=== PATIENT | female | born 1935 | race Caucasian/White ===

== ENCOUNTER 2024-02-04 13:38 | Inpatient (IN) ==
--- NOTE | 2024-02-04 14:43 | Emergency Department Note ---
Impression & Plan Weakness, Acute hyponatremia, Elevated troponin, Elevated liver enzymes ED Provider Note NAME: RAYMOND BALLARD AGE: 88 SEX: F : 1935 ARRIVES VIA: Ambulance INFORMANT: [Patient][family] ED PROVIDER(S): [Miguel Colorado MD] CHIEF COMPLAINT: Weakness HISTORY OF PRESENT ILLNESS: The patient is an 88-year-old female who recently had COVID-19. She has been out of quarantine for 2 days. Yesterday was a decent day. Today, she felt weak and not herself and had a hard time getting out of a chair. The weakness is diffuse. She feels thirsty, she thinks she may be dehydrated. There has been no shortness of breath today, no chest pain or abdominal pain. No vomiting or diarrhea. No urinary complaints. PMHx/PSHx/Social Hx: See Below PHYSICAL EXAM: GENERAL: Patient is in no acute distress. HEENT: No acute trauma, normocephalic atraumatic, mucous membranes dry, no nasal congestion. NECK: No stridor, no adenopathy, no meningismus, trachea is midline. LUNGS: Clear to auscultation bilaterally, no wheeze, no rhonchi, breath sounds equal. HEART: Without murmurs gallops or rubs, regular rate and rhythm. ABDOMEN: Soft, nontender, no peritonitis. EXTREMITIES: No cyanosis, full range of motion of all the joints without pain or difficulty. NEUROLOGIC: Oriented x 3, no acute motor or sensory deficits, no focal weakness. No speech slur or facial droop. SKIN: No jaundice, no diaphoresis. DIFFERENTIAL DIAGNOSIS: Dehydration, UTI, electrolyte imbalance, anemia, NH, among others. EMERGENCY DEPARTMENT PROCEDURES: MEDICAL DECISION MAKING: There is no leukocytosis or concerning anemia. There is a normal platelet count. Sodium was low at 128. No renal failure. There were some elevated liver enzymes, the bilirubin was normal. TSH was elevated however, the T4 was normal. ECG shows a normal sinus rhythm with LVH, no obvious ST elevation. Cardiac enzyme testing x 2 was performed, the value was elevated but stable. The troponin elevation does not appear consistent with acute cardiac injury. Urinalysis does not show findings of infection. On exam, the patient appeared dehydrated. She was not febrile or toxic. No focal neurologic findings to suggest CVA. Patient received 1.5 L of IV saline for hydration. The patient is still too weak to stand and support herself. She feels unsafe with discharge. The patient will be hospitalized. She requires further hydration, correction of her hyponatremia, observation. Further cardiac workup may be warranted. I spoke with the patient and case management. The on-call hospitalist was consulted. Prior/Outside records/notes reviewed: Today's EMS notes describing her presentation and transport to this hospital. ECG per my interpretation: Indication was weakness. The ECG shows a normal sinus rhythm with a rate of 68. There is LVH present. There is no acute ST elevation, no PVCs. The QTc is 433. Continuous Cardiac Monitoring per my interpretation: An order was placed for continuous cardiac monitoring. The monitor shows a rate of 99 with normal sinus rhythm. Imaging/x-ray results per my interpretation: Chest x-ray shows a potential abnormality to the left lung versus artifact. No obvious pneumonia. There was no pneumothorax or CHF. Chronic Medical/Social conditions affecting care: Advanced age. Recent COVID- 19 diagnosis. Care/Management discussed with: Case management, the on-call hospitalist. Level of care consideration(s): After review of the information above and other included data: --I believe the patient requires escalation of care to admission DISPOSITION: Admission Past Med/Surg History Problem List (Updated 02/04/24 @ 19:53 by Miguel Colorado MD) Elevated liver enzymes (Acute) Elevated troponin (Acute) Acute hyponatremia (Acute) Weakness (Acute) Elevated troponin Transaminitis Dehydration Acute hyponatremia Generalized weakness Claw hand of left upper extremity Left arm weakness Medical History History of left breast cancer chemo and xrt in 1999 Macular degeneration of right eye T2DM (type 2 diabetes mellitus) Rotator cuff arthropathy Surgical History (Updated 02/04/24 @ 18:05 by Karma Del Toro PA-C) History of knee replacement procedure of right knee History of knee replacement procedure of left knee Hx of hysterectomy Social History Smoking Status: Former smoker Tobacco Type: Cigarettes Smoking End Date: many years ago, smoked when young; Hx Alcohol Use: No Hx Substance Use: No Preferred Language: French marital status: / Current Living Situation Comment: [facility] Feels Safe at Home: Yes Allergies Allergies Allergy/AdvReac Type Severity Reaction Status Date / Time Sulfa (Sulfonamide Allergy Mild Unknown Verified 02/04/24 18:05 Antibiotics) Home Meds Home Medications Medication Instructions Recorded Confirmed biotin 2,500 mcg capsule 5,000 mcg PO DAILY 08/04/23 02/04/24 brimonidine 0.2 % eye drops 1 drp ophthalmic (eye) BID 08/04/23 02/04/24 docusate sodium 100 mg capsule 100 mg PO DAILY 08/04/23 02/04/24 ibuprofen 200 mg tablet 200 mg PO DAILY PRN Pain 08/04/23 02/04/24 latanoprost 0.005 % eye drops 1 drp ophthalmic (eye) DAILY 08/04/23 02/04/24 levothyroxine 75 mcg tablet 75 mcg PO DAILY 08/04/23 02/04/24 lidocaine 4 % topical gel 1 applic topical TID PRN Pain 08/04/23 02/04/24 multivitamin 1 tab PO DAILY 08/04/23 02/04/24 omeprazole 20 mg capsule,delayed 20 mg PO DAILY 08/04/23 02/04/24 release sitagliptin phosphate 100 mg 100 mg PO DAILY 08/04/23 02/04/24 tablet (Januvia) solifenacin 10 mg tablet (Vesicare) 10 mg PO DAILY 08/04/23 02/04/24 trazodone 50 mg tablet 50 mg PO DAILY 08/04/23 02/04/24 vit C 250 mg-vit E 90 mg-zinc 40 1 tab PO BID 02/04/24 02/04/24 mg-copper 1 [id number] capsule (PreserVision AREDS-2) zinc oxide-white petrolatum 15 1 applic topical DIRECTED 02/04/24 02/04/24 %-49 % topical ointment (Remedy Specialized Protect) Previous Rx's Medication Instructions Recorded diazepam 2 mg tablet 2 mg PO ONCE PRN anxiety #2 tabs 09/03/23 lidocaine 5 % topical patch 1 patch topical DAILY #15 ea 01/18/24 (Lidoderm) oxycodone 5 mg tablet 2.5 - 5 mg (0.5 - 1 x 5 mg) PO Q6H 01/18/24 PRN pain #10 tabs Results & Data (ED) Vital Signs Vital Signs - 24 hr 02/04/24 13:47 02/04/24 13:47 02/04/24 13:50 Temperature 36.5 C Temperature Source Oral Pulse Rate 77 74 Pulse Rate [Apical] Pulse Rate from SpO2 Sensor Respiratory Rate 16 Respiratory Effort / Characteristics Respiratory Depth Respiratory Pattern Blood Pressure 115/75 Blood Pressure [Right Arm] Blood Pressure Mean 88 Blood Pressure Mean [Right Arm] Pulse Oximetry 99 Oxygen Delivery Method Room Air Room Air Sepsis Recent Fever Within 48 Hours No Sepsis New/Unexplained Change in Mental Status No Sepsis Action Taken by Nursing No Action Required 02/04/24 14:00 02/04/24 14:15 02/04/24 14:21 Temperature Temperature Source Pulse Rate 71 72 66 Pulse Rate [Apical] Pulse Rate from SpO2 Sensor 72 68 Respiratory Rate 17 21 21 Respiratory Effort / Characteristics Respiratory Depth Respiratory Pattern Blood Pressure Blood Pressure [Right Arm] Blood Pressure Mean Blood Pressure Mean [Right Arm] Pulse Oximetry 98 99 Oxygen Delivery Method Sepsis Recent Fever Within 48 Hours Sepsis New/Unexplained Change in Mental Status Sepsis Action Taken by Nursing 02/04/24 14:30 02/04/24 14:45 02/04/24 14:51 Temperature Temperature Source Pulse Rate 75 66 67 Pulse Rate [Apical] Pulse Rate from SpO2 Sensor 68 67 67 Respiratory Rate 13 27 H 20 Respiratory Effort / Characteristics Respiratory Depth Respiratory Pattern Blood Pressure Blood Pressure [Right Arm] Blood Pressure Mean Blood Pressure Mean [Right Arm] Pulse Oximetry 98 99 98 Oxygen Delivery Method Sepsis Recent Fever Within 48 Hours Sepsis New/Unexplained Change in Mental Status Sepsis Action Taken by Nursing 02/04/24 15:00 02/04/24 15:06 02/04/24 15:15 Temperature Temperature Source Pulse Rate 71 71 Pulse Rate [Apical] 69 Pulse Rate from SpO2 Sensor 71 71 Respiratory Rate 18 13 15 Respiratory Effort / Characteristics Non-Labored Spontaneous Respiratory Depth Normal Respiratory Pattern Regular Blood Pressure Blood Pressure [Right Arm] 133/78 Blood Pressure Mean Blood Pressure Mean [Right Arm] 96 Pulse Oximetry 98 98 99 Oxygen Delivery Method Room Air Sepsis Recent Fever Within 48 Hours Sepsis New/Unexplained Change in Mental Status Sepsis Action Taken by Nursing 02/04/24 15:24 02/04/24 17:00 02/04/24 18:00 Temperature 37.1 C Temperature Source Oral Pulse Rate 76 Pulse Rate [Apical] 66 68 Pulse Rate from SpO2 Sensor 76 Respiratory Rate 18 18 18 Respiratory Effort / Characteristics Non-Labored Spontaneous Non-Labored Spontaneous Respiratory Depth Normal Normal Respiratory Pattern Regular Regular Blood Pressure Blood Pressure [Right Arm] 139/71 115/80 Blood Pressure Mean Blood Pressure Mean [Right Arm] 93 91 Pulse Oximetry 99 98 99 Oxygen Delivery Method Room Air Room Air Sepsis Recent Fever Within 48 Hours Sepsis New/Unexplained Change in Mental Status Sepsis Action Taken by Nursing 02/04/24 18:24 Temperature Temperature Source Pulse Rate 67 Pulse Rate [Apical] Pulse Rate from SpO2 Sensor Respiratory Rate Respiratory Effort / Characteristics Respiratory Depth Respiratory Pattern Blood Pressure Blood Pressure [Right Arm] Blood Pressure Mean Blood Pressure Mean [Right Arm] Pulse Oximetry Oxygen Delivery Method Sepsis Recent Fever Within 48 Hours Sepsis New/Unexplained Change in Mental Status Sepsis Action Taken by Long Term Medications Current Medication List: was personally reviewed by me Laboratory Data Attestation: I reviewed the patient's lab results. 02/04/24 13:50 02/04/24 13:50 Lab Results 02/04/24 02/04/24 02/04/24 Range/Units 13:50 15:52 16:24 WBC 7.74 (4.8-10.8) K/ul RBC 4.19 L (4.20-5.40) M/uL Hgb 14.2 (12.0-16.0) g/dl Hct 40.8 (37.0-47.0) % MCV 97.4 (80.0-100.0) fL MCH 33.9 (25.0-34.0) pg MCHC 34.8 (32.0-36.0) g/dL RDW Std Deviation 47.8 H (36.4-46.3) fL RDW Coeff of Oswaldo 13.4 (11.5-14.5) % Plt Count 195 (130-400) K/uL MPV 10.6 (9.4-12.4) fL Immature Gran % (Auto) 1.2 % Neut % (Auto) 67.4 % Lymph % (Auto) 26.2 % Burleigh % (Auto) 4.7 % Eos % (Auto) 0.4 % Baso % (Auto) 0.1 % Neut # (Auto) 5.22 (1.40-6.50) K/uL Lymph # (Auto) 2.03 (1.20-3.40) K/uL Burleigh # (Auto) 0.36 (0.11-0.59) K/uL Eos # (Auto) 0.03 (0.00-0.50) K/uL Baso # (Auto) 0.01 (0.00-0.20) K/uL Immature Gran # (Auto) 0.09 (0.01-0.20) K/uL Sodium 128 L (136-145) mmol/L Potassium 4.2 (3.5-5.1) mmol/L Chloride 95 L (98-107) mmol/L Carbon Dioxide 23 (21-32) mmol/L Anion Gap 10 (3-11) BUN 22 (6-23) mg/dl Creatinine 0.68 (0.6-1.2) mg/dl Est Cr Clr Drug Dosing 47.3 ml/min Est GFR ( Amer) 90.5 ml/min Est GFR (Non-Af Amer) 78.1 ml/min BUN/Creatinine Ratio 32.4 H (10-20) Glucose 142 H (70-99(Fasting)) mg/dl Osmolality 279 L (280-300) mOsm/kg Calcium 9.5 (8.6-10.3) mg/dl Magnesium 2.4 (1.7-2.4) mg/dl Total Bilirubin 0.9 (0.2-1.0) mg/dl AST 112 H (13-39) U/L ALT 187 H (7-52) U/L Alkaline Phosphatase 91 (34-104) U/L Troponin I High Sens 28.2 H 31.4 H (0-14) pg/ml Total Protein 6.6 (6.0-8.3) gm/dl Albumin 4.0 (3.4-5.0) gm/dl Globulin 2.6 (2.5-4.0) gm/dl Albumin/Globulin Ratio 1.5 (0.9-2) TSH 9.554 H (0.300-4.500) uIu/ml Free T4 0.94 (0.61-1.60) ng/dl Urine Color Yellow Urine Appearance Clear (Clear) Urine pH 7.5 (4.5-7.5) Ur Specific Holcomb 1.014 (1.000-1.030) Urine Protein Negative (Negative) Urine Glucose (UA) Negative (Negative) Urine Ketones Negative (Negative) Urine Blood Negative (Negative) Urine Nitrite Negative (Negative) Urine Bilirubin Negative (Negative) Urine Urobilinogen Negative (Negative) Ur Leukocyte Esterase 2+ H (Negative) Urine WBC (Auto) 0-5 (0-5) /hpf Urine RBC (Auto) 0-2 (0-2) /hpf U Hyaline Cast (Auto) 0-2 (0-2) /lpf U Epithel Cells (Auto) 0-2 (0-2) /hpf Urine Bacteria (Auto) None Seen (None Seen) Adenovirus (PCR) (NotDetected) B. pertussis DNA (PCR) (NotDetected) B.parapertussis DNA PCR (NotDetected) C. pneumoniae DNA (PCR) (NotDetected) Coronavirus OC43 (PCR) (NotDetected) Coronavirus HKU1 (PCR) (NotDetected) Coronavirus 229E (PCR) (NotDetected) SARS-CoV-2 (PCR) (NotDetected) Coronavirus NL63 (PCR) (NotDetected) Human Metapneumovir PCR (NotDetected) Influenza Type A (PCR) (NotDetected) Influenza Type B (PCR) (NotDetected) M. pneumoniae (PCR) (NotDetected) Parainfluenza 1 (PCR) (NotDetected) Parainfluenza 2 (PCR) (NotDetected) Parainfluenza 3 (PCR) (NotDetected) Parainfluenza 4 (PCR) (NotDetected) RSV (PCR) (NotDetected) Entero/Rhino (PCR) (NotDetected) 02/04/24 Range/Units 18:30 WBC (4.8-10.8) K/ul RBC (4.20-5.40) M/uL Hgb (12.0-16.0) g/dl Hct (37.0-47.0) % MCV (80.0-100.0) fL MCH (25.0-34.0) pg MCHC (32.0-36.0) g/dL RDW Std Deviation (36.4-46.3) fL RDW Coeff of Oswaldo (11.5-14.5) % Plt Count (130-400) K/uL MPV (9.4-12.4) fL Immature Gran % (Auto) % Neut % (Auto) % Lymph % (Auto) % Burleigh % (Auto) % Eos % (Auto) % Baso % (Auto) % Neut # (Auto) (1.40-6.50) K/uL Lymph # (Auto) (1.20-3.40) K/uL Burleigh # (Auto) (0.11-0.59) K/uL Eos # (Auto) (0.00-0.50) K/uL Baso # (Auto) (0.00-0.20) K/uL Immature Gran # (Auto) (0.01-0.20) K/uL Sodium (136-145) mmol/L Potassium (3.5-5.1) mmol/L Chloride (98-107) mmol/L Carbon Dioxide (21-32) mmol/L Anion Gap (3-11) BUN (6-23) mg/dl Creatinine (0.6-1.2) mg/dl Est Cr Clr Drug Dosing ml/min Est GFR ( Amer) ml/min Est GFR (Non-Af Amer) ml/min BUN/Creatinine Ratio (10-20) Glucose (70-99(Fasting)) mg/dl Osmolality (280-300) mOsm/kg Calcium (8.6-10.3) mg/dl Magnesium (1.7-2.4) mg/dl Total Bilirubin (0.2-1.0) mg/dl AST (13-39) U/L ALT (7-52) U/L Alkaline Phosphatase (34-104) U/L Troponin I High Sens (0-14) pg/ml Total Protein (6.0-8.3) gm/dl Albumin (3.4-5.0) gm/dl Globulin (2.5-4.0) gm/dl Albumin/Globulin Ratio (0.9-2) TSH (0.300-4.500) uIu/ml Free T4 (0.61-1.60) ng/dl Urine Color Urine Appearance (Clear) Urine pH (4.5-7.5) Ur Specific Holcomb (1.000-1.030) Urine Protein (Negative) Urine Glucose (UA) (Negative) Urine Ketones (Negative) Urine Blood (Negative) Urine Nitrite (Negative) Urine Bilirubin (Negative) Urine Urobilinogen (Negative) Ur Leukocyte Esterase (Negative) Urine WBC (Auto) (0-5) /hpf Urine RBC (Auto) (0-2) /hpf U Hyaline Cast (Auto) (0-2) /lpf U Epithel Cells (Auto) (0-2) /hpf Urine Bacteria (Auto) (None Seen) Adenovirus (PCR) Not Detected (NotDetected) B. pertussis DNA (PCR) Not Detected (NotDetected) B.parapertussis DNA PCR Not Detected (NotDetected) C. pneumoniae DNA (PCR) Not Detected (NotDetected) Coronavirus OC43 (PCR) Not Detected (NotDetected) Coronavirus HKU1 (PCR) Not Detected (NotDetected) Coronavirus 229E (PCR) Not Detected (NotDetected) SARS-CoV-2 (PCR) Not Detected (NotDetected) Coronavirus NL63 (PCR) Not Detected (NotDetected) Human Metapneumovir PCR Not Detected (NotDetected) Influenza Type A (PCR) Not Detected (NotDetected) Influenza Type B (PCR) Not Detected (NotDetected) M. pneumoniae (PCR) Not Detected (NotDetected) Parainfluenza 1 (PCR) Not Detected (NotDetected) Parainfluenza 2 (PCR) Not Detected (NotDetected) Parainfluenza 3 (PCR) Not Detected (NotDetected) Parainfluenza 4 (PCR) Not Detected (NotDetected) RSV (PCR) Not Detected (NotDetected) Entero/Rhino (PCR) Not Detected (NotDetected) Administered Medications Discontinued Medications Sodium Chloride (Nss) 1,000 mls @ 999 mls/hr IV .Q1H1M DELFINO Stop: 02/04/24 15:45 Last Infusion: 02/04/24 16:16 Dose: Infused Documented By: Admin: 02/04/24 15:06 Dose: 999 mls/hr Documented By: SHILPI Sodium Chloride (Nss) 500 mls @ 999 mls/hr IV .Q31M ONE Stop: 02/04/24 18:06 Last Admin: 02/04/24 18:32 Dose: 999 mls/hr Documented By: SHILPI Imaging Data Radiologist's Impression: Chest X-Ray 02/04/24 14:36 XR chest 1V portable CLINICAL HISTORY: weakness COMPARISON STUDY: MRI of the chest September 06, 2023. FINDINGS: There is no pneumothorax or pleural effusion. Left axillary surgical clips are incidentally noted. There is no consolidation or evidence for pulmonary edema. Cardiomediastinal silhouette is unremarkable. Apparent left midlung density is likely due to summation artifact. IMPRESSION: Left midlung density, likely due to summation artifact. A focus of pneumonia could appear similar. This could be assessed with short-term follow-up PA and lateral chest radiographs. ACT 112: Negative or not required by law. Electronically signed by: Iggy Acevedo M.D. 02/04/2024 2:58 PM Discharge Plan Visit Data Chief Complaint: Weakness Stated Complaint: WEAKNESS ED Provider: Miguel Colorado Discharge Problem: Weakness, Acute hyponatremia, Elevated troponin, Elevated liver enzymes Patient Disposition: Admitted As Inpatient Condition: Fair Forms Stand Alone Forms: [facility] Prescriptions Prescriptions: No Action diazepam 2 mg tablet 2 mg PO ONCE PRN (Reason: anxiety) Qty: 2 0RF Rx Instructions: take one tab 1 hour prior to MRI; repeat x1 if needed biotin 2,500 mcg capsule 5,000 mcg PO DAILY multivitamin Tablet 1 tab PO DAILY solifenacin [Vesicare] 10 mg tablet 10 mg PO DAILY brimonidine 0.2 % drops 1 drp ophthalmic (eye) BID ibuprofen 200 mg tablet 200 mg PO DAILY PRN (Reason: Pain) Januvia 100 mg tablet 100 mg PO DAILY latanoprost 0.005 % drops 1 drp ophthalmic (eye) DAILY levothyroxine 75 mcg tablet 75 mcg PO DAILY lidocaine 4 % gel 1 applic topical TID PRN (Reason: Pain) omeprazole 20 mg capsule,delayed release(DR/EC) 20 mg PO DAILY docusate sodium 100 mg capsule 100 mg PO DAILY trazodone 50 mg tablet 50 mg PO DAILY lidocaine [Lidoderm] 5 % adhesive patch,medicated 1 patch topical DAILY Qty: 15 1RF Rx Instructions: leave on most painful area for up to 12 hrs oxycodone 5 mg tablet 2.5 - 5 mg PO Q6H PRN (Reason: pain) Qty: 10 0RF Remedy Specialized Protect 15-49 % ointment 1 applic TOPICAL DIRECTED PreserVision AREDS-2 250-90-40-1 mg Capsule 1 tab PO BID Referrals Referrals: Moises Gannon CRNP [Primary Care Provider] -
--- NOTE | 2024-02-04 15:00 | XRay Report ---
XR chest 1V portable CLINICAL HISTORY: weakness COMPARISON STUDY: MRI of the chest September 06, 2023. FINDINGS: There is no pneumothorax or pleural effusion. Left axillary surgical clips are incidentally noted. There is no consolidation or evidence for pulmonary edema. Cardiomediastinal silhouette is un remarkable. Apparent left midlung density is likely due to summation artifact. IMPRESSION: Left midlung density, likely due to summation artifact. A focus of pneumonia could appear similar. This could be assessed with short-term follow-up PA and lateral chest radiographs. ACT 112: Negative or not required by law. Electronically signed by: Iggy Acevedo M.D. 02/04/2024 2:58 PM
[2024-02-04 15:03] LABS: Basophils # (auto) 0.01 K/uL (0.00-0.20); Basophils % (auto) 0.1 %; Eosinophils # (auto) 0.03 K/uL (0.00-0.50); Eosinophils % (auto) 0.4 %; Hematocrit (blood only) 40.8 % (37.0-47.0); Hemoglobin 14.2 g/dl (12.0-16.0); Immature Granulocytes # (auto) 0.09 K/uL (0.01-0.20); Immature Granulocytes % (auto) 1.2 %; Lymphocytes # (auto) 2.03 K/uL (1.20-3.40); Lymphocytes % (auto) 26.2 %; Mean Corpuscular Hemoglobin 33.9 pg (25.0-34.0); Mean Corpuscular Hgb Conc 34.8 g/dL (32.0-36.0); Mean Corpuscular Volume 97.4 fL (80.0-100.0); Mean Platelet Volume 10.6 fL (9.4-12.4); Monocytes # (auto) 0.36 K/uL (0.11-0.59); Monocytes % (auto) 4.7 %; Neutrophils # (auto) 5.22 K/uL (1.40-6.50); Neutrophils % (auto) 67.4 %; Platelet Count 195 K/uL (130-400); RDW Coefficient of Variation 13.4 % (11.5-14.5); RDW Standard Deviation 47.8 fL (36.4-46.3); Red Blood Count 4.19 M/uL (4.20-5.40); White Blood Count 7.74 K/ul (4.8-10.8)
[2024-02-04] MEDS: SODIUM CHLORIDE 0.9% 1,000 ML IV SCH ×2 (15:06→23:44)
[2024-02-04 15:17] LABS: Albumin Globulin Ratio 1.5 (0.9-2); BUN Creatinine Ratio 32.4 (10-20); Bilirubin,Total 0.9 mg/dl (0.2-1.0); Calcium 9.5 mg/dl (8.6-10.3); Creatinine Clr Calc Pharmacy 47.3 ml/min; Est GFR (African American) 90.5 ml/min; Est GFR (Non-African American) 78.1 ml/min; Globulin 2.6 gm/dl (2.5-4.0); Magnesium 2.4 mg/dl (1.7-2.4); Potassium 4.2 mmol/L (3.5-5.1); Total Protein 6.6 gm/dl (6.0-8.3)
[2024-02-04 15:23] LABS: Troponin I High Sensitivity 28.2 pg/ml (0-14)
[2024-02-04 15:32] LABS: Thyroid Stimulating Hormone 9.554 uIu/ml (0.300-4.500)
[2024-02-04 16:09] LABS: T4 Free Thyroxine 0.94 ng/dl (0.61-1.60)
[2024-02-04 16:31] LABS: Appearance Urine Clear (Clear); Bacteria Urine Automated None Seen (None Seen); Bilirubin Urine Negative (Negative); Blood Urine Negative (Negative); Cast Urine Automated 0-2 /lpf (0-2); Color Urine Yellow; Epithelial Cell Urine Auto 0-2 /hpf (0-2); Glucose Urine UA Negative (Negative); Ketones Urine Negative (Negative); Leukocyte Esterase Urine 2+ (Negative); Nitrite Urine Negative (Negative); Protein Urine Negative (Negative); RBC Urine Automated 0-2 /hpf (0-2); Specific Gravity Urine 1.014 (1.000-1.030); Urobilinogen Urine Negative (Negative); WBC Urine Automated 0-5 /hpf (0-5); pH Urine 7.5 (4.5-7.5)
[2024-02-04] MEDS: SODIUM CHLORIDE 0.9% 500 ML IV ONE (18:32)
--- NOTE | 2024-02-04 18:34 | History & Physical Report ---
Date of Service February 04, 2024 Assessment & Plan (1) Generalized weakness: (2) Acute hyponatremia: (3) Dehydration: (4) Transaminitis: (5) Elevated troponin: (6) T2DM (type 2 diabetes mellitus): (7) History of left breast cancer: Plan This is a 88 yr old F who has a significant PMH of macular degeneration, T2DM, hypothyroidism who presents to ED 2/2 weakness. Generalized Weakness Recent Covid Infection Dehydration Acute Hyponatremia admit to med tele gentle IVF x 1 L, obtain urine na, urine osm, serum osm received 1 L of IVF in ED, will repeat BMP now, suspect related to poor intake suspect weakness multifactorial in setting of covid, dehydration and low sodium if worsening/no improvement consider nephro consult Obtain CT chest r/o PNA given recent covid infection PT/OT consults placed Elevated troponin ecg w/o ischemic change, no chest pain cycle x 3, obtain echo in a.m. given pt significant stress with recent deaths Transaminitis repeat CMP in a.m., no abd pain, if worsening obtain RUQ US T2DM obtain a1c in a.m. hold januvia will monitor accuchecks for now, diabetic diet, if consistent BSG elevated add sliding scale coverage Hypothyroidism: continue levothyroxine, TSH elevated, T4 normal, recommend repeat TSH/T4 in 2-4 weeks after recovered from recent illness Macular degeneration: continue eye gtts DVT ppx: SQ lovenox DNR/DNI PCP: [facility] NENA Medrano Dispo: pt resides at [facility], was receiving therapy services there, when discussing rehab with patients daughter was very upset as her recently at rehab and she states her mother will not go to a facility for rehab, this is a very sensitive topic given the families recent deaths. Pt was seen and examined in collaboration with Dr. Reyes, please see addendum A total of 76 minutes was spent coordinating, documenting, and providing care for this patient excluding time spent in the performance of separately billed services. This included personally viewing all current laboratories and imaging studies, medication reconciliation, outpatient chart review, and discussion with specialists. History of Present Illness Chief Complaint: Weakness Primary Care Provider: [facility] NENA Connelly This is a 88 yr old F who has a significant PMH of macular degeneration, T2DM, hypothyroidism who presents to ED 2/2 weakness. Daughter is at bedside who helps elicit history. Pt states her passed 5 days ago and daughter at bedside states her passed 3 weeks ago. They have had a lot of stress going on in the family. She was dx with covid approx 7-10 days ago. Her sx were present almost a week before she tested positive. Her sx have mostly resolved except she has a lingering cough and c/o L sided chest,"rattles." She denies f/c/s, chest pain, sob at rest, hemoptysis, n/v/d, abd pain, change in bowel or urinary habits. SHe has been more constipated lately. She has not been eating/drinking well. She lives at [facility] and today she was even to weak to get up off a chair. She feels overall dehydrated. In ED pt remained hemodynamically stable. Lab work notable for hyponatremia, transaminitis and elevated troponin. CXR showed LLL summation density and a CT scan was ordered for follow up. Allergies Allergy/AdvReac Type Severity Reaction Status Date / Time Sulfa (Sulfonamide Allergy Mild Unknown Verified 02/04/24 18:05 Antibiotics) Home Medications Medication Instructions Recorded Confirmed Type biotin 2,500 mcg capsule 5,000 mcg PO DAILY 08/04/23 02/04/24 History brimonidine 0.2 % eye drops 1 drp ophthalmic (eye) BID 08/04/23 02/04/24 History docusate sodium 100 mg capsule 100 mg PO DAILY 08/04/23 02/04/24 History ibuprofen 200 mg tablet 200 mg PO DAILY PRN Pain 08/04/23 02/04/24 History latanoprost 0.005 % eye drops 1 drp ophthalmic (eye) DAILY 08/04/23 02/04/24 History levothyroxine 75 mcg tablet 75 mcg PO DAILY 08/04/23 02/04/24 History lidocaine 4 % topical gel 1 applic topical TID PRN Pain 08/04/23 02/04/24 History multivitamin 1 tab PO DAILY 08/04/23 02/04/24 History omeprazole 20 mg capsule,delayed 20 mg PO DAILY 08/04/23 02/04/24 History release sitagliptin phosphate 100 mg 100 mg PO DAILY 08/04/23 02/04/24 History tablet (Januvia) solifenacin 10 mg tablet (Vesicare) 10 mg PO DAILY 08/04/23 02/04/24 History trazodone 50 mg tablet 50 mg PO DAILY 08/04/23 02/04/24 History diazepam 2 mg tablet 2 mg PO ONCE PRN anxiety #2 tabs 09/03/23 02/04/24 Rx lidocaine 5 % topical patch 1 patch topical DAILY #15 ea 01/18/24 02/04/24 Rx (Lidoderm) oxycodone 5 mg tablet 2.5 - 5 mg (0.5 - 1 x 5 mg) PO Q6H 01/18/24 02/04/24 Rx PRN pain #10 tabs vit C 250 mg-vit E 90 mg-zinc 40 1 tab PO BID 02/04/24 02/04/24 History mg-copper 1 [id number] capsule (PreserVision AREDS-2) zinc oxide-white petrolatum 15 1 applic topical DIRECTED 02/04/24 02/04/24 History %-49 % topical ointment (Remedy Specialized Protect) Past Med/Surg History Problem List (Updated 02/04/24 @ 19:53 by Miguel Colorado MD) Elevated liver enzymes (Acute) Elevated troponin (Acute) Acute hyponatremia (Acute) Weakness (Acute) Elevated troponin Transaminitis Dehydration Acute hyponatremia Generalized weakness Claw hand of left upper extremity Left arm weakness Medical History History of left breast cancer chemo and xrt in 1999 Macular degeneration of right eye T2DM (type 2 diabetes mellitus) Rotator cuff arthropathy Surgical History (Updated 02/04/24 @ 18:05 by Karma Del Toro PA-C) History of knee replacement procedure of right knee History of knee replacement procedure of left knee Hx of hysterectomy Social History Smoking Status: Former smoker Tobacco Type: Cigarettes Smoking End Date: many years ago, smoked when young; Hx Alcohol Use: No Hx Substance Use: No Preferred Language: Samoan marital status: / Current Living Situation Comment: [facility] Feels Safe at Home: Yes Review of Systems Review of Systems: All systems reviewed & are unremarkable except as noted in HPI & below Physical Exam Physical Exam: constitutional: WD/WN, elderly, appears acutely ill, vitals as above, NAD, sitting up in bed, pleasant, conversing easily Head: Normocephalic, Atraumatic Eyes: PERRL, conjunctivae normal, anicteric sclerae ENMT: external ear and nose normal, oropharynx normal dry membranes Neck: trachea midline, no thyromegaly normal visual inspection Respiratory: normal respiratory effort, lungs clear to auscultation, no wheeze, rales, rhonchi. Normal insp/exp effort, no accessory muscle use Cardiovascular: RRR, no murmur, no edema Vessels: no JVD or carotid bruit Chest: normal inspection of chest Abdomen: normal bowel sounds, soft, nontender, no hepatosplenomegaly Musculoskeletal: no cyanosis or clubbing, arom x 4 Skin: no rashes, warm and dry moderate turgor Neurologic: no face palsy, no dysarthria CN's II-XI intact bilaterally and moves all extremities Psychiatric: A+Ox3, euthymic affect : nic colored urine collected in purwic Results & Data Results & Data Vital Signs (Past 12 Hours) Vital Signs Temp Pulse Pulse Resp BP BP Pulse Ox 02/04/24 18:24 67 02/04/24 18:00 68 18 115/80 99 02/04/24 17:00 37.1 C 66 18 139/71 98 02/04/24 15:24 76 18 99 02/04/24 15:15 71 15 99 02/04/24 15:06 71 13 98 02/04/24 15:00 69 18 133/78 98 02/04/24 14:51 67 20 98 02/04/24 14:45 66 27 H 99 02/04/24 14:30 75 13 98 02/04/24 14:21 66 21 99 02/04/24 14:15 72 21 98 02/04/24 14:00 71 17 02/04/24 13:50 74 02/04/24 13:47 02/04/24 13:47 36.5 C 77 16 115/75 99 O2 Del Method 02/04/24 18:24 02/04/24 18:00 Room Air 02/04/24 17:00 Room Air 02/04/24 15:24 02/04/24 15:15 02/04/24 15:06 02/04/24 15:00 Room Air 02/04/24 14:51 02/04/24 14:45 02/04/24 14:30 02/04/24 14:21 02/04/24 14:15 02/04/24 14:00 02/04/24 13:50 02/04/24 13:47 Room Air 02/04/24 13:47 Room Air Laboratory Results I have independently reviewed and interpreted patient's admitting labs including CBC, CMP, mag, TSH, UA and troponin. Diagnostic Findings Chest X-Ray 02/04/24 14:36 XR chest 1V portable CLINICAL HISTORY: weakness COMPARISON STUDY: MRI of the chest September 06, 2023. FINDINGS: There is no pneumothorax or pleural effusion. Left axillary surgical clips are incidentally noted. There is no consolidation or evidence for pulmonary edema. Cardiomediastinal silhouette is unremarkable. Apparent left midlung density is likely due to summation artifact. IMPRESSION: Left midlung density, likely due to summation artifact. A focus of pneumonia could appear similar. This could be assessed with short-term follow-up PA and lateral chest radiographs. ACT 112: Negative or not required by law. Electronically signed by: Iggy Acevedo M.D. 02/04/2024 2:58 PM Medications Administered Medication List Discontinued Medications Sodium Chloride (Nss) 1,000 mls @ 999 mls/hr IV .Q1H1M DELFINO Stop: 02/04/24 15:45 Last Infusion: 02/04/24 16:16 Dose: Infused Documented By: Admin: 02/04/24 15:06 Dose: 999 mls/hr Documented By: SHILPI Sodium Chloride (Nss) 500 mls @ 999 mls/hr IV .Q31M ONE Stop: 02/04/24 18:06 Last Admin: 02/04/24 18:32 Dose: 999 mls/hr Documented By: SHILPI ECG Additional Comments: I have independently reviewed and interpreted patient's admitting EKG which revealed: NSR, 68 bpm, no st or t wave change qtc 433ms Code Status & VTE Plan Code Status DNR/DNI VTE Prophylaxis Plan VTE Prophylaxis will be ordered: Yes Supervising Physician Co-Signing Physician Notes Pt was seen and examined by myself, Mary Reyes MD on the day of service. Care was coordinated with Karma Del Toro PA-C. 88-year-old female presenting with concern for weakness in the setting of noted hyponatremia, recent COVID infection and suspected dehydration. Patient also notes significant history of personal family loss recently. On exam alert oriented x 3 resting comfortably in the bed. Neuro exam noting strength decreased on the left we will hydrate, monitor sodium levels, consider nephrology consult if not improving PT OT consults, likely needs rehab. However, might be a source subject in the setting of recent family loss for patient and family. Otherwise as above. I spent a total [id number] coordinating, documenting, and providing care for this patient excluding time spent in the performance of separately billed services
[2024-02-04 19:43] LABS: Adenovirus PCR Not Detected (NotDetected); Bordetella parapertussis PCR Not Detected (NotDetected); Bordetella pertussis PCR Not Detected (NotDetected); Chlamydia pneumoniae PCR Not Detected (NotDetected); Coronavirus 229E PCR Not Detected (NotDetected); Coronavirus CoV-2 (COVID19)PCR Not Detected (NotDetected); Coronavirus HKU1 PCR Not Detected (NotDetected); Coronavirus NL63 PCR Not Detected (NotDetected); Coronavirus OC43PCR Not Detected (NotDetected); Human Metapneumovirus PCR Not Detected (NotDetected); Influenza A PCR Not Detected (NotDetected); Influenza B PCR Not Detected (NotDetected); Mycoplasma pneumoniae PCR Not Detected (NotDetected); Parainfluenza Virus 1 PCR Not Detected (NotDetected); Parainfluenza Virus 2 PCR Not Detected (NotDetected); Parainfluenza Virus 3 PCR Not Detected (NotDetected); Parainfluenza Virus 4 PCR Not Detected (NotDetected); Respiratory Syncytial VirusPCR Not Detected (NotDetected); Rhinovirus/Enterovirus PCR Not Detected (NotDetected)
[2024-02-04 19:56] LABS: BUN Creatinine Ratio 30.9 (10-20); Calcium 8.3 mg/dl (8.6-10.3); Creatinine Clr Calc Pharmacy 58.5 ml/min; Est GFR (African American) 97.1 ml/min; Est GFR (Non-African American) 83.7 ml/min; Potassium 3.1 mmol/L (3.5-5.1); Troponin I High Sensitivity 30.4 pg/ml (0-14)
[2024-02-04] MEDS: POTASSIUM CHLORIDE CRTAB 20 MEQ TABCR PO STA (20:22)
--- NOTE | 2024-02-04 20:49 | CT Scan Report ---
Exam(s): CT CHEST Without Contrast EXAM: CT Chest Without Intravenous Contrast CLINICAL HISTORY: Reason for exam: r/o PNA. TECHNIQUE: Axial computed tomography images of the chest without intravenous contrast. CTDI is 8.3 mGy and DLP is 278 mGy-cm. Automated exposure control was utilized for the study. A dose lowering technique was utilized adhering to the principles of ALARA. COMPARISON: No relevant prior studies available. FINDINGS: Lungs: No consolidation or interstitial edema. Mild scarring within the left upper lobe. Pleural-based nodule in the right lower lobe measuring 4 mm (series 3 image 34) favored to represent an intraparenchymal lymph node. Pleural space: No pleural effusion or pneumothorax. Heart: Unremarkable. Bones/joints: No acute findings. Soft tissues: Status post left mastectomy. Vasculature: Unremarkable. Lymph nodes: No adenopathy. IMPRESSION: No evidence of pneumonia. Electronically signed by: Emigdio Ascencio MD 02/04/24 20:48 PM
[2024-02-04] MEDS ORDERED: GLUCOSE 10 TAB/TUBE PO PRN (22:28)
[2024-02-04] MEDS ORDERED: GLUCOSE 40% GEL 15 GM TUBE PO PRN (22:28)
[2024-02-04] MEDS ORDERED: NON-FORMULARY MEDICATION (Vit C,E-Zn-Coppr-Lutein-Zeaxan [Preservision Areds-2] 250-90-40- PO SCH (22:28)
[2024-02-04] MEDS ORDERED: FAMOTIDINE 20 MG TAB PO PRN (22:28)
[2024-02-04] MEDS ORDERED: ONDANSETRON INJ 2 MG/ML 2 ML VIAL IV PRN (22:28)
[2024-02-04] MEDS ORDERED: GLUCAGON FOR INJ 1 MG VIAL SQ PRN (22:28)
[2024-02-04] MEDS ORDERED: DEXTROSE 50% 50 ML SYRINGE IV PRN (22:28)
[2024-02-04] MEDS ORDERED: CARBOHYDRATES FOR HYPOGLYCEMIA PO PRN (22:28)
[2024-02-04] MEDS: ENOXAPARIN INJ 40 MG/0.4 ML SYR SQ SCH (23:44)
[2024-02-04] MEDS: traZODone HCL 50 MG TAB PO SCH (23:45)
[2024-02-04] MEDS: LATANOPROST 0.005% OP SOLN 2.5 ML BTL OP SCH (23:45)
[2024-02-04] MEDS: BRIMONIDINE TARTRATE 0.2% 5ML OP SCH (23:45)
[2024-02-05 07:23] LABS: Basophils # (auto) 0.01 K/uL (0.00-0.20); Basophils % (auto) 0.2 %; Eosinophils # (auto) 0.08 K/uL (0.00-0.50); Eosinophils % (auto) 1.4 %; Hematocrit (blood only) 34.5 % (37.0-47.0); Hemoglobin 11.7 g/dl (12.0-16.0); Immature Granulocytes # (auto) 0.06 K/uL (0.01-0.20); Immature Granulocytes % (auto) 1.1 %; Lymphocytes # (auto) 2.02 K/uL (1.20-3.40); Lymphocytes % (auto) 35.6 %; Mean Corpuscular Hemoglobin 33.7 pg (25.0-34.0); Mean Corpuscular Hgb Conc 33.9 g/dL (32.0-36.0); Mean Corpuscular Volume 99.4 fL (80.0-100.0); Mean Platelet Volume 10.3 fL (9.4-12.4); Monocytes % (auto) 5.3 %; Neutrophils # (auto) 3.21 K/uL (1.40-6.50); Neutrophils % (auto) 56.4 %; Platelet Count 150 K/uL (130-400); RDW Coefficient of Variation 13.7 % (11.5-14.5); RDW Standard Deviation 49.1 fL (36.4-46.3); Red Blood Count 3.47 M/uL (4.20-5.40); White Blood Count 5.68 K/ul (4.8-10.8)
[2024-02-05 07:42] LABS: Albumin Globulin Ratio 1.5 (0.9-2); Albumin Level 3.1 gm/dl (3.4-5.0); Bilirubin,Total 0.7 mg/dl (0.2-1.0); Calcium 7.7 mg/dl (8.6-10.3); Creatinine Clr Calc Pharmacy 73.1 ml/min; Est GFR (African American) 104.5 ml/min; Est GFR (Non-African American) 90.1 ml/min; Globulin 2.1 gm/dl (2.5-4.0); Potassium 4.3 mmol/L (3.5-5.1); Total Protein 5.2 gm/dl (6.0-8.3)
[2024-02-05 07:53] LABS: Estimated Average Glucose 166 mg/dl; Hemoglobin A1C 7.4 % (4.5-5.6)
[2024-02-05] MEDS: LEVOTHYROXINE SODIUM 75 MCG TABLET PO SCH (08:24)
[2024-02-05] MEDS: PANTOprazole 40 MG TAB PO SCH (08:25)
[2024-02-05] MEDS: OXYBUTYNIN CHLORIDE XL 5 MG TABCR PO SCH (08:26)
[2024-02-05] MEDS: DOCUSATE SODIUM 100 MG CAP PO SCH (08:27)
--- NOTE | 2024-02-05 11:25 | Electrocardiogram Report ---
Test Reason : Blood Pressure : */* mmHG Vent. Rate : 68 BPM Atrial Rate : 68 BPM P-R Int : 138 ms QRS Dur : 110 ms QT Int : 408 ms P-R-T Axes : -2 -59 36 degrees QTcB Int : 433 ms Normal sinus rhythm Left anterior fascicular block Left ventricular hypertrophy ( R in aVL ) Abnormal ECG No previous ECGs available Confirmed by Eagle Merritt ([id number]) on 02/05/2024 11:25:02 AM Referred By: REFERRED SELF Confirmed By: Eagle Merritt
[2024-02-05] MEDS: LIDOCAINE 5% 1 PATCH TD SCH (12:40)
[2024-02-05] MEDS ORDERED: IBUPROFEN 200 MG TAB PO PRN (13:12)
[2024-02-05] MEDS: ACETAMINOPHEN 325 MG TAB PO PRN (13:19)
[2024-02-05] MEDS: POLYETHYLENE (MIRALAX) 17 GM PACK PO PRN (13:20)
--- NOTE | 2024-02-05 14:39 | Hospitalist Progress Note ---
Date of Service February 05, 2024 Assessment & Plan (1) Generalized weakness: (2) Acute hyponatremia: (3) Dehydration: (4) Transaminitis: (5) Elevated troponin: (6) T2DM (type 2 diabetes mellitus): (7) History of left breast cancer: Plan Patient is an 88 yr old F who has a significant PMH of macular degeneration, T2DM, hypothyroidism who presents to ED 2/2 weakness. Generalized Weakness Likely due to recent Covid Infection Dehydration Hyponatremia--likely due to dehydration Continue IV fluids Sodium levels improved to 136 today PT OT as able Recent COVID-[address] chest showed no signs of pneumonia Check procalcitonin levels Saturating well on room air Elevated troponin Denies any chest pain, dyspnea EKG showed no signs of acute ischemia Troponin elevation likely secondary to recent COVID-19 infection Echo pending Hypokalemia Monitor and replete electrolytes as needed Transaminitis Likely due to recent COVID-19 infection Avoid hepatotoxic agents as able Monitor LFTs DM II HbA1c 7.4 hold [place] Monitor blood glucose levels Will consider to add insulin if blood glucose levels consistently elevated Hypothyroidism: Elevated TSH, normal free T4 Continue levothyroxine Needs repeat thyroid function test as outpatient Macular degeneration: continue eye gtts DVT Px: SQ Lovenox Code Status DNR/DNI Disposition PT OT prior to discharge Admission and Anticipated Discharge Date Admission Date: February 04, 2024 Subjective Patient is seen and examined at bedside Reports having dry cough which she attributes to recent COVID infection Generalized weakness better today Had small bowel movement today Offers no other complaints Denies any chest pain, dyspnea, nausea, vomiting, abdominal pain, dizziness Review of Systems Review of Systems: All systems reviewed & are unremarkable except as noted in Subjective Physical Exam Physical Exam: Physical Exam: Vitals signs as noted above General Appearance:Moderately built and nourished, no apparent distress, Elderly Head: normocephalic, Atraumatic Eyes: normal inspection, EOMI Neck: supple, Trachea midline Respiratory/Chest: Normal breath sounds, CTA, No accessory muscle use Cardiovascular: S1, S2, No murmur Abdomen/GI:Soft, Non tender, Bowel sounds present Extremities/Musculoskeletal:normal inspection, 1+edema Neurologic/Psych:AAOX3, grossly no focal neurological deficits Skin: normal color, warm Results & Data Results & Data Vital Signs (Past 12 Hours) Vital Signs Temp Pulse Pulse Resp BP Pulse Ox O2 Del Method 02/05/24 13:56 78 02/05/24 11:04 36.8 C 66 17 100/66 96 Room Air 02/05/24 07:57 36.9 C 79 16 123/67 97 Room Air 02/05/24 07:34 63 Laboratory Results Short CBC 02/04/24 02/05/24 Range/Units 13:50 06:41 WBC 7.74 5.68 (4.8-10.8) K/ul Hgb 14.2 11.7 L (12.0-16.0) g/dl Hct 40.8 34.5 L (37.0-47.0) % Plt Count 195 150 (130-400) K/uL BMP 02/04/24 02/04/24 02/05/24 13:50 19:10 06:41 Sodium 128 L 131 L 136 Potassium 4.2 3.1 L D 4.3 D Chloride 95 L 101 109 H Carbon Dioxide 23 21 21 BUN 22 17 11 Creatinine 0.68 0.55 L 0.44 L Glucose 142 H 131 H 123 H Calcium 9.5 8.3 L 7.7 L Liver Function 02/04/24 02/05/24 Range/Units 13:50 06:41 Total Bilirubin 0.9 0.7 (0.2-1.0) mg/dl AST 112 H 93 H (13-39) U/L ALT 187 H 163 H (7-52) U/L Alkaline Phosphatase 91 67 (34-104) U/L Albumin 4.0 3.1 L (3.4-5.0) gm/dl Urine 02/04/24 Range/Units 15:52 Urine Color Yellow Urine Appearance Clear (Clear) Urine pH 7.5 (4.5-7.5) Ur Specific [place] 1.014 (1.000-1.030) Urine Protein Negative (Negative) Urine Glucose (UA) Negative (Negative)
[2024-02-06 08:06] LABS: Hematocrit (blood only) 32.5 % (37.0-47.0); Hemoglobin 10.9 g/dl (12.0-16.0); Mean Corpuscular Hemoglobin 33.3 pg (25.0-34.0); Mean Corpuscular Hgb Conc 33.5 g/dL (32.0-36.0); Mean Corpuscular Volume 99.4 fL (80.0-100.0); Mean Platelet Volume 10.8 fL (9.4-12.4); Platelet Count 133 K/uL (130-400); RDW Coefficient of Variation 13.7 % (11.5-14.5); RDW Standard Deviation 50.2 fL (36.4-46.3); Red Blood Count 3.27 M/uL (4.20-5.40); White Blood Count 4.85 K/ul (4.8-10.8)
[2024-02-06 08:24] LABS: BUN Creatinine Ratio 19.6 (10-20); Bilirubin Direct 0.2 mg/dl (0-0.2); Bilirubin,Total 0.7 mg/dl (0.2-1.0); Calcium 8.5 mg/dl (8.6-10.3); Creatinine Clr Calc Pharmacy 78.3 ml/min; Est GFR (African American) 102.9 ml/min; Est GFR (Non-African American) 88.8 ml/min; Magnesium 2.1 mg/dl (1.7-2.4); Potassium 4.1 mmol/L (3.5-5.1)
[2024-02-06] MEDS: oxyCODONE HCL IR 5 MG TAB (IMMEDIATE RELEASE) PO PRN (09:03)
[2024-02-06] MEDS: IBUPROFEN 200 MG TAB PO PRN (15:20)
--- NOTE | 2024-02-06 16:09 | Hospitalist Progress Note ---
Date of Service February 06, 2024 Assessment & Plan (1) Generalized weakness: (2) Acute hyponatremia: (3) Dehydration: (4) Transaminitis: (5) Elevated troponin: (6) T2DM (type 2 diabetes mellitus): (7) History of left breast cancer: Plan Patient is an 88 yr old F who has a significant PMH of macular degeneration, T2DM, hypothyroidism who presents to ED 2/2 weakness. Generalized Weakness Likely due to recent Covid Infection Dehydration Hyponatremia--likely due to dehydration Received IV fluids Sodium levels improved to 135 today Needs rehab placement Continue PT OT Case management to help with discharge planning Recent COVID-[address] chest showed no signs of pneumonia Normal procalcitonin Saturating well on room air Elevated troponin Denies any chest pain, dyspnea EKG showed no signs of acute ischemia Troponin elevation likely secondary to recent COVID-19 infection Echo showed no wall motion abnormality Hypokalemia Monitor and replete electrolytes as needed Transaminitis Likely due to recent COVID-19 infection Avoid hepatotoxic agents as able Monitor LFTs DM II HbA1c 7.4 hold [employer] Monitor blood glucose levels Will consider to add insulin if blood glucose levels consistently elevated Hypothyroidism: Elevated TSH, normal free T4 Continue levothyroxine Needs repeat thyroid function test as outpatient Macular degeneration: continue eye gtts DVT Px: SQ Lovenox Code Status DNR/DNI Disposition Rehab when accepted Admission and Anticipated Discharge Date Admission Date: February 04, 2024 Subjective Patient is seen and examined at bedside Reports generalized weakness Minimal cough Denies any chest pain, dyspnea, nausea, vomiting, abdominal pain, dizziness Had OT evaluation this morning Review of Systems Review of Systems: All systems reviewed & are unremarkable except as noted in Subjective Physical Exam Physical Exam: Physical Exam: Vitals signs as noted above General Appearance:Moderately built and nourished, no apparent distress, Elderly Head: normocephalic, Atraumatic Eyes: normal inspection, EOMI Neck: supple, Trachea midline Respiratory/Chest: Normal breath sounds, CTA, No accessory muscle use Cardiovascular: S1, S2, No murmur Abdomen/GI:Soft, Non tender, Bowel sounds present Extremities/Musculoskeletal:normal inspection, 1+edema Neurologic/Psych:AAOX3, grossly no focal neurological deficits Skin: normal color, warm Results & Data Results & Data Vital Signs (Past 12 Hours) Vital Signs Temp Pulse Pulse Resp BP Pulse Ox O2 Del Method 02/06/24 15:52 36.9 C 93 H 18 101/63 96 Room Air 02/06/24 12:07 36.6 C 74 14 112/75 99 Room Air 02/06/24 08:45 36.8 C 65 18 114/71 96 Room Air 02/06/24 07:17 59 L Laboratory Results Short CBC 02/06/24 Range/Units 07:02 WBC 4.85 (4.8-10.8) K/ul Hgb 10.9 L (12.0-16.0) g/dl Hct 32.5 L (37.0-47.0) % Plt Count 133 (130-400) K/uL BMP 02/06/24 07:02 Sodium 135 L Potassium 4.1 Chloride 108 H Carbon Dioxide 22 BUN 9 Creatinine 0.46 L Glucose 110 H Calcium 8.5 L Liver Function 02/06/24 Range/Units 07:02 Total Bilirubin 0.7 (0.2-1.0) mg/dl Direct Bilirubin 0.2 (0-0.2) mg/dl AST 71 H (13-39) U/L ALT 147 H (7-52) U/L Alkaline Phosphatase 65 (34-104) U/L Albumin 3.0 L (3.4-5.0) gm/dl
[2024-02-06] MEDS: DICLOFENAC SOD 1% GEL 100 GM TUBE EXT PRN (20:20)
[2024-02-06] MEDS: MELATONIN 3 MG TAB PO PRN (20:20)
[2024-02-07 08:26] LABS: Hematocrit (blood only) 32.1 % (37.0-47.0); Hemoglobin 11.4 g/dl (12.0-16.0); Mean Corpuscular Hemoglobin 34.4 pg (25.0-34.0); Mean Corpuscular Hgb Conc 35.5 g/dL (32.0-36.0); Mean Platelet Volume 10.3 fL (9.4-12.4); Platelet Count 121 K/uL (130-400); RDW Coefficient of Variation 13.7 % (11.5-14.5); RDW Standard Deviation 49.3 fL (36.4-46.3); Red Blood Count 3.31 M/uL (4.20-5.40); White Blood Count 4.23 K/ul (4.8-10.8)
[2024-02-07 08:53] LABS: BUN Creatinine Ratio 22.6 (10-20); Calcium 8.9 mg/dl (8.6-10.3); Creatinine Clr Calc Pharmacy 67.7 ml/min; Est GFR (African American) 98.3 ml/min; Est GFR (Non-African American) 84.8 ml/min; Potassium 3.6 mmol/L (3.5-5.1)
[2024-02-07] MEDS: SODIUM CHLORIDE 0.9% 1,000 ML IV ONE (12:29)
[2024-02-07] MEDS: POLYETHYLENE (MIRALAX) 17 GM PACK PO ONE (13:26)
[2024-02-07] MEDS: bisacodyL 10 MG SUPP PR PRN (17:01)
--- NOTE | 2024-02-07 18:51 | Hospitalist Progress Note ---
Date of Service February 07, 2024 Assessment & Plan (1) Generalized weakness: (2) Acute hyponatremia: (3) Dehydration: (4) Transaminitis: (5) Elevated troponin: (6) T2DM (type 2 diabetes mellitus): (7) History of left breast cancer: Plan Patient is an 88 yr old F who has a significant PMH of macular degeneration, T2DM, hypothyroidism who presents to ED 2/2 weakness. Generalized Weakness Likely due to recent Covid Infection Dehydration Hyponatremia--likely due to dehydration Continue IV fluids as needed Sodium levels improved to 136 today Needs rehab placement Continue PT OT Plan to discharge to rehab facility when accepted Recent COVID-[address] chest showed no signs of pneumonia Normal procalcitonin Saturating well on room air Elevated troponin Denies any chest pain, dyspnea EKG showed no signs of acute ischemia Troponin elevation likely secondary to recent COVID-19 infection Echo showed no wall motion abnormality Hypokalemia Monitor and replete electrolytes as needed Transaminitis Likely due to recent COVID-19 infection Avoid hepatotoxic agents as able Monitor LFTs DM II HbA1c 7.4 hold [employer] Monitor blood glucose levels Will consider to add insulin if blood glucose levels consistently elevated Hypothyroidism: Elevated TSH, normal free T4 Continue levothyroxine Needs repeat thyroid function test as outpatient Macular degeneration: continue eye gtts DVT Px: SQ Lovenox Code Status DNR/DNI Disposition Rehab Admission and Anticipated Discharge Date Admission Date: February 04, 2024 Subjective Patient is seen and examined at bedside Sitting in chair during my encounter Reports having dry mouth today Also reports generalized weakness Discussed with patient and family at bedside Denies any chest pain, dyspnea, nausea, vomiting, abdominal pain, dizziness Review of Systems Review of Systems: All systems reviewed & are unremarkable except as noted in Subjective Physical Exam Physical Exam: Physical Exam: Vitals signs as noted above General Appearance:Moderately built and nourished, no apparent distress, Elderly Head: normocephalic, Atraumatic Eyes: normal inspection, EOMI Neck: supple, Trachea midline Respiratory/Chest: Normal breath sounds, CTA, No accessory muscle use Cardiovascular: S1, S2, No murmur Abdomen/GI:Soft, Non tender, Bowel sounds present Extremities/Musculoskeletal:normal inspection, 1+edema Neurologic/Psych:AAOX3, grossly no focal neurological deficits Skin: normal color, warm Results & Data Results & Data Vital Signs (Past 12 Hours) Vital Signs Temp Pulse Pulse Resp BP Pulse Ox O2 Del Method 02/07/24 15:48 36.6 C 77 18 105/64 97 Room Air 02/07/24 14:03 76 02/07/24 11:48 36.5 C 68 16 90/58 L 100 Room Air 02/07/24 08:15 Room Air 02/07/24 07:48 36.8 C 61 16 126/76 93 Room Air 02/07/24 07:29 71 Laboratory Results Short CBC 02/07/24 Range/Units 08:08 WBC 4.23 L (4.8-10.8) K/ul Hgb 11.4 L (12.0-16.0) g/dl Hct 32.1 L (37.0-47.0) % Plt Count 121 L (130-400) K/uL BMP 02/07/24 08:08 Sodium 136 Potassium 3.6 Chloride 107 Carbon Dioxide 23 BUN 12 Creatinine 0.53 L Glucose 130 H Calcium 8.9
[2024-02-08 07:58] VITALS: BP 128/70; PULSE 73; RESP 16; TEMP 98.2; O2SAT 96
--- NOTE | 2024-02-08 09:11 | Hospitalist Progress Note ---
Date of Service February 08, 2024 Assessment & Plan (1) Generalized weakness: (2) Acute hyponatremia: (3) Dehydration: (4) Transaminitis: (5) Elevated troponin: (6) T2DM (type 2 diabetes mellitus): (7) History of left breast cancer: Plan Patient is an 88 yr old F who has a significant PMH of macular degeneration, T2DM, hypothyroidism who presents to ED 2/2 weakness. Generalized Weakness Likely due to recent Covid Infection Dehydration Hyponatremia--likely due to dehydration Continue IV fluids as needed Hyponatremia resolved Sodium levels improved to 136 today Continue PT OT Plan to discharge to SNF today Recent COVID-[address] chest showed no signs of pneumonia Normal procalcitonin Saturating well on room air Elevated troponin Denies any chest pain, dyspnea EKG showed no signs of acute ischemia Troponin elevation likely secondary to recent COVID-19 infection Echo showed no wall motion abnormality Hypokalemia Monitor and replete electrolytes as needed Transaminitis Likely due to recent COVID-19 infection Avoid hepatotoxic agents as able Monitor LFTs DM II HbA1c 7.4 hold Jet [employer] Gamesuvia Monitor blood glucose levels Will consider to add insulin if blood glucose levels consistently elevated Hypothyroidism: Elevated TSH, normal free T4 Continue levothyroxine Needs repeat thyroid function test as outpatient Macular degeneration: continue eye gtts DVT Px: SQ Lovenox Code Status DNR/DNI Disposition SNF Admission and Anticipated Discharge Date Admission Date: February 04, 2024 Subjective Patient is seen and examined at bedside Reports having generalized weakness No other complaints today Denies any chest pain, dyspnea, nausea, vomiting, abdominal pain, dizziness Plan to discharge to rehab facility today Review of Systems Review of Systems: All systems reviewed & are unremarkable except as noted in Subjective Physical Exam Physical Exam: Physical Exam: Vitals signs as noted above General Appearance:Moderately built and nourished, no apparent distress, Elderly Head: normocephalic, Atraumatic Eyes: normal inspection, EOMI Neck: supple, Trachea midline Respiratory/Chest: Normal breath sounds, CTA, No accessory muscle use Cardiovascular: S1, S2, No murmur Abdomen/GI:Soft, Non tender, Bowel sounds present Extremities/Musculoskeletal:normal inspection, 1+edema Neurologic/Psych:AAOX3, grossly no focal neurological deficits Skin: normal color, warm Results & Data Results & Data Vital Signs (Past 12 Hours) Vital Signs Temp Pulse Pulse Resp BP Pulse Ox O2 Del Method 02/08/24 08:40 Room Air 02/08/24 07:57 36.8 C 73 16 128/70 96 Room Air 02/08/24 07:04 52 L 02/08/24 03:54 36.7 C 85 20 101/50 L 93 Room Air 02/08/24 00:10 36.5 C 68 18 115/69 99 Room Air 02/07/24 23:17 Room Air 02/07/24 22:03 63
--- NOTE | 2024-02-08 12:34 | Discharge Summary ---
Date of Service February 08, 2024 Admission HPI Per Admitting Provider This is a 88 yr old F who has a significant PMH of macular degeneration, T2DM, hypothyroidism who presents to ED 2/2 weakness. Daughter is at bedside who helps elicit history. Pt states her passed 5 days ago and daughter at bedside states her passed 3 weeks ago. They have had a lot of stress going on in the family. She was dx with covid approx 7-10 days ago. Her sx were present almost a week before she tested positive. Her sx have mostly resolved except she has a lingering cough and c/o L sided chest,"rattles." She denies f/c/s, chest pain, sob at rest, hemoptysis, n/v/d, abd pain, change in bowel or urinary habits. SHe has been more constipated lately. She has not been eating/drinking well. [facility] and today she was even to weak to get up off a chair. She feels overall dehydrated. In ED pt remained hemodynamically stable. Lab work notable for hyponatremia, transaminitis and elevated troponin. CXR showed LLL summation density and a CT scan was ordered for follow up. Admission Exam Per Admitting Provider Constitutional: WD/WN, elderly, appears acutely ill, vitals as above, NAD, sitting up in bed, pleasant, conversing easily Head: Normocephalic, Atraumatic Eyes: PERRL, conjunctivae normal, anicteric sclerae ENMT: external ear and nose normal, oropharynx normal dry membranes Neck: trachea midline, no thyromegaly normal visual inspection Respiratory: normal respiratory effort, lungs clear to auscultation, no wheeze, rales, rhonchi. Normal insp/exp effort, no accessory muscle use Cardiovascular: RRR, no murmur, no edema Vessels: no JVD or carotid bruit Chest: normal inspection of chest Abdomen: normal bowel sounds, soft, nontender, no hepatosplenomegaly Musculoskeletal: no cyanosis or clubbing, arom x 4 Skin: no rashes, warm and dry moderate turgor Neurologic: no face palsy, no dysarthria CN's II-XI intact bilaterally and moves all extremities Psychiatric: A+Ox3, euthymic affect : nic colored urine collected in purwic Principal Diagnosis Dehydration Hyponatremia Hypokalemia Generalized Weakness Constipation Discharge Data Allergies Allergy/AdvReac Type Severity Reaction Status Date / Time Sulfa (Sulfonamide Allergy Mild Unknown Verified 02/04/24 18:05 Antibiotics) Consultations 02/04/24 17:55 ED Decision to Admit Stat Procedures Performed Laboratory Results WBC 4.23 K/ul (4.8-10.8) L 02/07/24 08:08 RBC 3.31 M/uL (4.20-5.40) L 02/07/24 08:08 Hgb 11.4 g/dl (12.0-16.0) L 02/07/24 08:08 Hct 32.1 % (37.0-47.0) L 02/07/24 08:08 MCV 97.0 fL (80.0-100.0) 02/07/24 08:08 MCH 34.4 pg (25.0-34.0) H 02/07/24 08:08 MCHC 35.5 g/dL (32.0-36.0) 02/07/24 08:08 RDW Std Deviation 49.3 fL (36.4-46.3) H 02/07/24 08:08 RDW Coeff of Oswaldo 13.7 % (11.5-14.5) 02/07/24 08:08 Plt Count 121 K/uL (130-400) L 02/07/24 08:08 MPV 10.3 fL (9.4-12.4) 02/07/24 08:08 Immature Gran % (Auto) 1.1 % 02/05/24 06:41 Neut % (Auto) 56.4 % 02/05/24 06:41 Lymph % (Auto) 35.6 % 02/05/24 06:41 [place] % (Auto) 5.3 % 02/05/24 06:41 Eos % (Auto) 1.4 % 02/05/24 06:41 Baso % (Auto) 0.2 % 02/05/24 06:41 Neut # (Auto) 3.21 K/uL (1.40-6.50) 02/05/24 06:41 Lymph # (Auto) 2.02 K/uL (1.20-3.40) 02/05/24 06:41 [place] # (Auto) 0.30 K/uL (0.11-0.59) 02/05/24 06:41 Eos # (Auto) 0.08 K/uL (0.00-0.50) 02/05/24 06:41 Baso # (Auto) 0.01 K/uL (0.00-0.20) 02/05/24 06:41 Immature Gran # (Auto) 0.06 K/uL (0.01-0.20) 02/05/24 06:41 Sodium 136 mmol/L (136-145) 02/07/24 08:08 Potassium 3.6 mmol/L (3.5-5.1) 02/07/24 08:08 Chloride 107 mmol/L (98-107) 02/07/24 08:08 Carbon Dioxide 23 mmol/L (21-32) 02/07/24 08:08 Anion Gap 6 (3-11) 02/07/24 08:08 BUN 12 mg/dl (6-23) 02/07/24 08:08 Creatinine 0.53 mg/dl (0.6-1.2) L 02/07/24 08:08 Est Cr Clr Drug Dosing 67.7 ml/min 02/07/24 08:08 Est GFR ( Amer) 98.3 ml/min 02/07/24 08:08 Est GFR (Non-Af Amer) 84.8 ml/min 02/07/24 08:08 BUN/Creatinine Ratio 22.6 (10-20) H 02/07/24 08:08 Glucose 130 mg/dl (70-99(Fasting)) H 02/07/24 08:08 POC Glucose 127 mg/dl (70-99) H 02/08/24 08:09 Estimat Average Glucose 166 mg/dl 02/05/24 06:41 Hemoglobin A1c 7.4 % (4.5-5.6) H 02/05/24 06:41 Osmolality 279 mOsm/kg (280-300) L 02/04/24 13:50 Calcium 8.9 mg/dl (8.6-10.3) 02/07/24 08:08 Magnesium 2.1 mg/dl (1.7-2.4) 02/06/24 07:02 Total Bilirubin 0.7 mg/dl (0.2-1.0) 02/06/24 07:02 Direct Bilirubin 0.2 mg/dl (0-0.2) 02/06/24 07:02 AST 71 U/L (13-39) H 02/06/24 07:02 ALT 147 U/L (7-52) H 02/06/24 07:02 Alkaline Phosphatase 65 U/L (34-104) 02/06/24 07:02 Troponin I High Sens 28.8 pg/ml (0-14) H 02/05/24 00:40 Total Protein 5.0 gm/dl (6.0-8.3) L 02/06/24 07:02 Albumin 3.0 gm/dl (3.4-5.0) L 02/06/24 07:02 Globulin 2.1 gm/dl (2.5-4.0) L 02/05/24 06:41 Albumin/Globulin Ratio 1.5 (0.9-2) 02/05/24 06:41 Procalcitonin 0.09 ng/ml (0-0.5) 02/06/24 07:02 TSH 9.554 uIu/ml (0.300-4.500) H 02/04/24 13:50 Free T4 0.94 ng/dl (0.61-1.60) 02/04/24 13:50 Urine Color Yellow 02/04/24 15:52 Urine Appearance Clear (Clear) 02/04/24 15:52 Urine pH 7.5 (4.5-7.5) 02/04/24 15:52 Ur Specific [place] 1.014 (1.000-1.030) 02/04/24 15:52 Urine Protein Negative (Negative) 02/04/24 15:52 Urine Glucose (UA) Negative (Negative) 02/04/24 15:52 Urine Ketones Negative (Negative) 02/04/24 15:52 Urine Blood Negative (Negative) 02/04/24 15:52 Urine Nitrite Negative (Negative) 02/04/24 15:52 Urine Bilirubin Negative (Negative) 02/04/24 15:52 Urine Urobilinogen Negative (Negative) 02/04/24 15:52 Ur Leukocyte Esterase 2+ (Negative) H 02/04/24 15:52 Urine WBC (Auto) 0-5 /hpf (0-5) 02/04/24 15:52 Urine RBC (Auto) 0-2 /hpf (0-2) 02/04/24 15:52 U Hyaline Cast (Auto) 0-2 /lpf (0-2) 02/04/24 15:52 U Epithel Cells (Auto) 0-2 /hpf (0-2) 02/04/24 15:52 Urine Bacteria (Auto) None Seen (None Seen) 02/04/24 15:52 Urine Osmolality 421 mOsm/kg (500-800) L 02/04/24 15:50 Ur Random Sodium 26 mmol/L 02/04/24 15:50 Adenovirus (PCR) Not Detected (NotDetected) 02/04/24 18:30 B. pertussis DNA (PCR) Not Detected (NotDetected) 02/04/24 18:30 B.parapertussis DNA PCR Not Detected (NotDetected) 02/04/24 18:30 C. pneumoniae DNA (PCR) Not Detected (NotDetected) 02/04/24 18:30 Coronavirus OC43 (PCR) Not Detected (NotDetected) 02/04/24 18:30 Coronavirus HKU1 (PCR) Not Detected (NotDetected) 02/04/24 18:30 Coronavirus 229E (PCR) Not Detected (NotDetected) 02/04/24 18:30 SARS-CoV-2 (PCR) Not Detected (NotDetected) 02/04/24 18:30 Coronavirus NL63 (PCR) Not Detected (NotDetected) 02/04/24 18:30 Human Metapneumovir PCR Not Detected (NotDetected) 02/04/24 18:30 Influenza Type A (PCR) Not Detected (NotDetected) 02/04/24 18:30 Influenza Type B (PCR) Not Detected (NotDetected) 02/04/24 18:30 M. pneumoniae (PCR) Not Detected (NotDetected) 02/04/24 18:30 Parainfluenza 1 (PCR) Not Detected (NotDetected) 02/04/24 18:30 Parainfluenza 2 (PCR) Not Detected (NotDetected) 02/04/24 18:30 Parainfluenza 3 (PCR) Not Detected (NotDetected) 02/04/24 18:30 Parainfluenza 4 (PCR) Not Detected (NotDetected) 02/04/24 18:30 RSV (PCR) Not Detected (NotDetected) 02/04/24 18:30 Entero/Rhino (PCR) Not Detected (NotDetected) 02/04/24 18:30 Impressions Chest X-Ray 02/04/24 14:36 XR chest 1V portable CLINICAL HISTORY: weakness COMPARISON STUDY: MRI of the chest September 06, 2023. FINDINGS: There is no pneumothorax or pleural effusion. Left axillary surgical clips are incidentally noted. There is no consolidation or evidence for pulmonary edema. Cardiomediastinal silhouette is unremarkable. Apparent left midlung density is likely due to summation artifact. IMPRESSION: Left midlung density, likely due to summation artifact. A focus of pneumonia could appear similar. This could be assessed with short-term follow-up PA and lateral chest radiographs. ACT 112: Negative or not required by law. Electronically signed by: Iggy Acevedo M.D. 02/04/2024 2:[address] 02/04/24 18:16 Exam(s): CT CHEST Without Contrast EXAM: CT Chest Without Intravenous Contrast CLINICAL HISTORY: Reason for exam: r/o PNA. TECHNIQUE: Axial computed tomography images of the chest without intravenous contrast. CTDI is 8.3 mGy and DLP is 278 mGy-cm. Automated exposure control was utilized for the study. A dose lowering technique was utilized adhering to the principles of ALARA. COMPARISON: No relevant prior studies available. FINDINGS: Lungs: No consolidation or interstitial edema. Mild scarring within the left upper lobe. Pleural-based nodule in the right lower lobe measuring 4 mm (series 3 image 34) favored to represent an intraparenchymal lymph node. Pleural space: No pleural effusion or pneumothorax. Heart: Unremarkable. Bones/joints: No acute findings. Soft tissues: Status post left mastectomy. Vasculature: Unremarkable. Lymph nodes: No adenopathy. IMPRESSION: No evidence of pneumonia. Electronically signed by: Emigdio Ascencio MD 02/04/24 20:48 PM Ordered Studies 02/04/24 18:16 CT chest without contrast [CT chest diagnostic wo con] Stat Hospital Course (1) Generalized weakness: (2) Acute hyponatremia: (3) Dehydration: (4) Transaminitis: (5) Elevated troponin: (6) T2DM (type 2 diabetes mellitus): (7) History of left breast cancer: Plan Patient is an 88 yr old F who has a significant PMH of macular degeneration, T2DM, hypothyroidism who presents to ED 2/2 weakness. Generalized Weakness Likely due to recent Covid Infection Dehydration Hyponatremia--likely due to dehydration Continue IV fluids as needed Hyponatremia resolved Sodium levels improved to 136 today Continue PT OT Plan to discharge to SNF today Recent COVID-[address] chest showed no signs of pneumonia Normal procalcitonin Saturating well on room air Elevated troponin Denies any chest pain, dyspnea EKG showed no signs of acute ischemia Troponin elevation likely secondary to recent COVID-19 infection Echo showed no wall motion abnormality Hypokalemia Monitor and replete electrolytes as needed Transaminitis Likely due to recent COVID-19 infection Avoid hepatotoxic agents as able Monitor LFTs DM II HbA1c 7.4 hold Januvia Monitor blood glucose levels Will consider to add insulin if blood glucose levels consistently elevated Hypothyroidism: Elevated TSH, normal free T4 Continue levothyroxine Needs repeat thyroid function test as outpatient Macular degeneration: continue eye gtts DVT Px: SQ Lovenox Code Status DNR/DNI Disposition SNF Total Time Total Time Spent Total Time Spent (In Minutes): 44 minutes Discharge Plan Discharge Items Patient Disposition: Transfer Care Home Fac Reason For Visit: WEAKNESS, recent covid infection Discharge Diagnosis: Dehydration Hyponatremia Hypokalemia Generalized Weakness Constipation Condition on Discharge: Fair Activity: Per Instructions section Exercise/Sports: Gradually increase as tolerated Non-emergency contact: Primary Care Provider Call non-emergency contact if: you have any medication questions, your symptoms worsen, your pain is concerning for you and you have a fever Follow-up/Referrals: Moises Gannon CRNP [Primary Care Provider] - Diet: Carb Consistent or DM2 Addtl Attending Provider Instructions: Follow-up with your primary care physician LA NENA Medrano in 1 week Seek immediate medical attention if your symptoms reoccur or worsen Please take all medications as instructed on discharge list below. Please call if you have any questions or problems. You can reach a [facility] hospitalist on duty at [facility] 24 hours a day by calling [phone] Pending Studies at Discharge: No Stand-Alone Forms: My [facility] Skilled Items Patient informed of condition?: Yes DNR: Yes Discharge Level of Care: Skilled Communicable Disease: No Discharge Prognosis: Stable Lines: None Urinary Catheter: No Medications and DC Order Prescriptions: New polyethylene glycol 3350 [Miralax] 17 gram Powder In Packet 17 g PO DAILY PRN (Reason: constipation) Qty: 30 0RF Continued diazepam 2 mg tablet 2 mg PO ONCE PRN (Reason: anxiety) Qty: 2 0RF Rx Instructions: take one tab 1 hour prior to MRI; repeat x1 if needed biotin 2,500 mcg capsule 5,000 mcg PO DAILY multivitamin Tablet 1 tab PO DAILY solifenacin [Vesicare] 10 mg tablet 10 mg PO DAILY brimonidine 0.2 % drops 1 drp ophthalmic (eye) BID ibuprofen 200 mg tablet 200 mg PO DAILY PRN (Reason: Pain) Januvia 100 mg tablet 100 mg PO DAILY latanoprost 0.005 % drops 1 drp ophthalmic (eye) HS levothyroxine 75 mcg tablet 75 mcg PO DAILY lidocaine 4 % gel 1 applic topical TID PRN (Reason: Pain) omeprazole 20 mg capsule,delayed release(DR/EC) 20 mg PO DAILY trazodone 50 mg tablet 50 mg PO HS lidocaine [Lidoderm] 5 % adhesive patch,medicated 1 patch topical DAILY Qty: 15 1RF Rx Instructions: leave on most painful area for up to 12 hrs oxycodone 5 mg tablet 2.5 - 5 mg PO Q6H PRN (Reason: pain) Qty: 10 0RF Remedy Specialized Protect 15-49 % ointment 1 applic TOPICAL DIRECTED PreserVision AREDS-2 250-90-40-1 mg Capsule 1 tab PO BID Changed docusate sodium 100 mg capsule 100 mg PO BID Qty: 30 0RF Discharge Orders: Discharge Order (Routine); Ordered 02/08/24 Ordered By: Jm Camejo/Other Patient Handouts: Managing Type 2 Diabetes Admission Data Admit Date/Time: 02/04/24 17:53 Attending Provider: Jm Paiz Admit Provider: Mary Reyes Primary Care Provider: Moises Gannon Other Providers: Mary Reyes; Dent,Care Other Interventions: Discharge Summary Assessment (RN) Last Done: 02/08/24 10:45
== END 2024-02-08 12:10 | DRG 641 ==
LOC: ED 13:38 → SUATTDRO 17:53 → EDINP 17:53 → 2W 21:33

== ENCOUNTER 2025-01-27 19:24 | Inpatient (IN) ==
--- NOTE | 2025-01-27 19:49 | Emergency Department Note ---
Impression & Plan Fatigue, Constipation, Multiple skin tears, Multiple contusions ED Provider Note Provider: Joel García MD CHIEF COMPLAINT: Weakness, fatigue HISTORY OF PRESENT ILLNESS: Patient is a 89-year-old female history of hypothyroidism, diabetes, and shoulder issues presenting here today via ambulance from [facility]. Daughter is present as well at her time of arrival. Patient according to EMS was difficult to awaken was somewhat fatigued today. Facility noted a low blood pressure later on her blood pressures been normal for EMS. Blood sugar was 124 for EMS. Daughter states the patient's mental fog today and she thought she was just plate out from dealing with constipation following about bowel movement. Has been using some medication to help promote this. No falls are reported. She has some chronic swelling of her legs and ambulatory difficulties very sedentary according to the daughter. She reports that for many months she has had issue with her left arm and over the last several months issues with left leg where she can barely move them if any at all. Patient does have chronic pain issues as well follows with pain management and uses a Butrans patch. Patient is awake and alert now. Does not remember them having a hard time waking earlier today. She did have a skin tear on her left upper arm from transferring to the toilet earlier this week that they bandaged at the facility by daughter's report. PAST MEDICAL HISTORY: As noted above MEDICATIONS: Reviewed home medications from facility SOCIAL HISTORY: Resides at [facility] PHYSICAL EXAM: GENERAL: alert and oriented in no acute distress on stretcher Head: normocephalic and atraumatic EYES: No injection, discharge or icterus. EOMI. NECK: Trachea midline. ENT: Mucous membranes pink and moist. LUNGS: Airway patent. No retractions. Breath sounds clear HEART: Regular rate and rhythm. No chest wall tenderness ABDOMEN: Soft and non-tender, without guarding or rebound. No masses appreciable SKIN: Acyanotic, warm, dry, with scattered contusions over all extremities. EXTREMITIES: With 1-2+ edema of the lower extremities without weeping. Scattered contusions over the extremities. The left upper arm has a small skin tear just above the antecubital fossa which was rebandaged by myself here without evidence of infection or bleeding or discharge. NEUROLOGICAL: No aphasia. No facial droop noted. Moves the right arm well but no significant movement or strength in left arm or left leg and minimal strength and movement of the right leg. EK bpm normal sinus rhythm. No PVC but PACs noted. No acute ST segment elevation or depression with a bit of baseline artifact. QTc 467. CONTINUOUS CARDIAC MONITORING: was ordered and showed a heart rate of 60s to 80s bpm in normal sinus rhythm Patient's laboratory studies and imaging reviewed. Differential includes Infection, dehydration, metabolic abnormality, hypo/hyperglycemia, electrolyte disturbance, anemia, hypoxia, cardiac sources, intracerebral event, toxicologic, neurologic, as well as other pathologies. IMPRESSION/MEDICAL DECISION MAKING: No trauma. Awake and alert here. Not hypoglycemic. Vitals are reassuring and afebrile. Will check blood work as well as urinalysis. COVID test is sent. Complete a head CT to exclude cranial abnormality especially in light of having some difficulties with the arm and leg of the sound more chronic. CT abdomen pelvis obtained given her history of constipation so abdominal discomfort. Fairly benign exam of the abdomen however today. Patient does appear quite weak. Laboratory studies without leukocytosis or significant anemia. No significant electrolyte abnormalities with creatinine 0.28. No CK elevation. Normal troponin. Procalcitonin 0.19 not significantly elevated. Likely low creatinine and low protein levels related to her poor conditioning and again daughter states she does not eat very well. COVID, flu, RSV test is negative. TSH mildly of 12.7 but free T4 is normal at 0.79. CT of the head no acute intracranial abnormality noted. CT abdomen pelvis with evidence significant stool burden. This development of headache you are given some Tylenol. Does have some issues with swallowing and given IV dose. Daughter reports some swallowing issues been present for some time. Discussed with him findings. Still awaiting UA and patient was recently treated for UTI. In show decision making the daughter felt to be best the patient be observed given her episode of increased fatigue. Can work on bowel regimen. Reach out to the [facility] hospitalist for further evaluation and further observation. DIAGNOSIS: Fatigue, constipation DISPOSITION: Hospitalist will evaluate Patient was agreeable with this plan. Past Med/Surg History Problem List (Updated 01/27/25 @ 22:51 by Joel García M.D.) Multiple contusions (Acute) Multiple skin tears (Acute) Constipation (Acute) Fatigue (Acute) Myofascial pain Osteoarthritis of glenohumeral joint Elevated liver enzymes (Acute) Elevated troponin (Acute) Acute hyponatremia (Acute) Weakness (Acute) Elevated troponin Transaminitis Dehydration Acute hyponatremia Generalized weakness Claw hand of left upper extremity Left arm weakness Medical History History of left breast cancer chemo and xrt in 1999 Macular degeneration of right eye T2DM (type 2 diabetes mellitus) Rotator cuff arthropathy Surgical History History of knee replacement procedure of right knee History of knee replacement procedure of left knee Hx of hysterectomy Social History Smoking Status: Never smoker Tobacco Type: Cigarettes Hx Alcohol Use: No Hx Substance Use: No Preferred Language: French Communication Ability: Effective Graphic Designer Required: No Beliefs That Will Affect Care: None marital status: / Current Living Situation: Personal Care Facility Current Living Situation Comment: Lives in assisted living Feels Safe at Home: Yes Assistive Devices: Walker Allergies Allergies Allergy/AdvReac Type Severity Reaction Status Date / Time Sulfa (Sulfonamide Allergy Mild Unknown Verified 11/01/24 14:05 Antibiotics) Home Meds Home Medications Medication Instructions Recorded Confirmed brimonidine 0.2 % eye drops 1 drp OPL BID 08/04/23 01/27/25 ibuprofen 200 mg tablet 200 mg PO Q4H PRN Pain 08/04/23 01/27/25 latanoprost 0.005 % eye drops 1 drp OPB HS 08/04/23 01/27/25 multivitamin 1 tab PO DAILY 08/04/23 01/27/25 omeprazole 20 mg capsule,delayed 20 mg PO DAILY 08/04/23 01/27/25 release sitagliptin phosphate 100 mg 100 mg PO DAILY 08/04/23 01/27/25 tablet (Januvia) solifenacin 10 mg tablet (Vesicare) 10 mg PO DAILY 08/04/23 01/27/25 trazodone 50 mg tablet 50 mg PO HS 08/04/23 01/27/25 furosemide 20 mg tablet 20 mg PO QDAY 08/11/24 01/27/25 potassium chloride 20 mEq 20 meq PO BID 08/11/24 01/27/25 tablet,extended release colestipol 1 gram tablet 1 g PO BID 01/27/25 01/27/25 gabapentin 100 mg capsule 200 mg PO TID 01/27/25 01/27/25 levothyroxine 88 mcg tablet 88 mcg PO DAILY 01/27/25 01/27/25 loperamide 2 mg capsule 2 mg PO QID PRN Diarrhea 01/27/25 01/27/25 lorazepam 0.5 mg tablet 0.5 mg PO DAILY 01/27/25 01/27/25 nystatin 100,000 unit/gram topical 0 unit topical BID PRN RASH OR 01/27/25 01/27/25 cream IRRITATION nystatin 100,000 unit/gram topical 0 unit topical BID PRN Rash 01/27/25 01/27/25 powder ondansetron HCl 4 mg tablet 4 mg PO Q4H PRN Nausea And Vomiting 01/27/25 01/27/25 oxycodone 5 mg tablet 5 mg PO Q4H PRN pain 01/27/25 01/27/25 sennosides 8.6 mg tablet (senna) 8.6 mg PO BID 01/27/25 01/27/25 Previous Rx's Medication Instructions Recorded polyethylene glycol 3350 17 gram 17 g PO DAILY PRN constipation #30 02/08/24 oral powder packet (Miralax) ea buprenorphine 5 mcg/hour weekly 1 patch transdermal Q7D #4 ea 11/07/24 transdermal patch (Butrans) Results & Data (ED) Vital Signs Vital Signs - 24 hr 01/27/25 19:14 01/27/25 19:46 01/27/25 19:58 Temperature 36.6 C Temperature Source Oral Pulse Rate 72 66 Pulse Rate from SpO2 Sensor Respiratory Rate 14 Respiratory Effort / Characteristics Non-Labored Spontaneous Respiratory Depth Normal Respiratory Pattern Regular Blood Pressure 112/79 Blood Pressure Mean 90 Pulse Oximetry 100 100 Oxygen Delivery Method Room Air Room Air Sepsis Recent Fever Within 48 Hours No Sepsis New/Unexplained Change in Mental Status No Sepsis Action Taken by Nursing No Action Required 01/27/25 20:00 01/27/25 20:00 01/27/25 20:15 Temperature Temperature Source Pulse Rate 69 65 Pulse Rate from SpO2 Sensor 67 63 Respiratory Rate 18 15 Respiratory Effort / Characteristics Respiratory Depth Respiratory Pattern Blood Pressure 113/72 Blood Pressure Mean 98 Pulse Oximetry 100 98 Oxygen Delivery Method Sepsis Recent Fever Within 48 Hours Sepsis New/Unexplained Change in Mental Status Sepsis Action Taken by Nursing 01/27/25 20:24 01/27/25 20:30 01/27/25 20:45 Temperature Temperature Source Pulse Rate 65 66 62 Pulse Rate from SpO2 Sensor 64 64 63 Respiratory Rate 12 20 13 Respiratory Effort / Characteristics Respiratory Depth Respiratory Pattern Blood Pressure Blood Pressure Mean Pulse Oximetry 100 97 99 Oxygen Delivery Method Sepsis Recent Fever Within 48 Hours Sepsis New/Unexplained Change in Mental Status Sepsis Action Taken by Nursing 01/27/25 20:51 01/27/25 21:21 Temperature Temperature Source Pulse Rate 62 80 Pulse Rate from SpO2 Sensor 62 Respiratory Rate 12 24 Respiratory Effort / Characteristics Respiratory Depth Respiratory Pattern Blood Pressure Blood Pressure Mean Pulse Oximetry 98 Oxygen Delivery Method Sepsis Recent Fever Within 48 Hours Sepsis New/Unexplained Change in Mental Status Sepsis Action Taken by Nursing Laboratory Data 01/27/25 Unknown 01/27/25 Unknown Lab Results 01/27/25 01/27/25 01/27/25 Range/Units 19:32 20:15 Unknown WBC 7.38 (4.8-10.8) K/ul RBC 3.04 L (4.20-5.40) M/uL Hgb 11.1 L (12.0-16.0) g/dl Hct 32.8 L (37.0-47.0) % MCV 107.9 H (80.0-100.0) fL MCH 36.5 H (25.0-34.0) pg MCHC 33.8 (32.0-36.0) g/dL RDW Std Deviation 57.0 H (36.4-46.3) fL RDW Coeff of Oswaldo 14.6 H (11.5-14.5) % Plt Count 251 (130-400) K/uL MPV 10.7 (9.4-12.4) fL Immature Gran % (Auto) 0.4 % Neut % (Auto) 49.9 % Lymph % (Auto) 42.0 % Sevier % (Auto) 6.0 % Eos % (Auto) 1.4 % Baso % (Auto) 0.3 % Neut # (Auto) 3.69 (1.40-6.50) K/uL Lymph # (Auto) 3.10 (1.20-3.40) K/uL Sevier # (Auto) 0.44 (0.11-0.59) K/uL Eos # (Auto) 0.10 (0.00-0.50) K/uL Baso # (Auto) 0.02 (0.00-0.20) K/uL Immature Gran # (Auto) 0.03 (0.01-0.20) K/uL Sodium 140 (136-145) mmol/L Potassium 4.1 (3.5-5.1) mmol/L Chloride 107 (98-107) mmol/L Carbon Dioxide 30 (21-32) mmol/L Anion Gap 3 (3-11) BUN 14 (6-23) mg/dl Creatinine 0.28 L (0.6-1.2) mg/dl Est Cr Clr Drug Dosing 112.7 ml/min eGFR 103.03 BUN/Creatinine Ratio 50.0 H (10-20) Glucose 116 H (70-99(Fasting)) mg/dl POC Glucose 114 H (70-99) mg/dl Calcium 9.1 (8.6-10.3) mg/dl Magnesium 1.9 (1.7-2.4) mg/dl Total Bilirubin 0.5 (0.2-1.0) mg/dl AST 14 (13-39) U/L ALT 7 (7-52) U/L Alkaline Phosphatase 106 H (34-104) U/L Total Creatine Kinase 33 (26-192) U/L Troponin I High Sens 8.4 (0-14) pg/ml Total Protein 5.7 L (6.0-8.3) gm/dl Albumin 3.3 L (3.4-5.0) gm/dl Globulin 2.4 L (2.5-4.0) gm/dl Albumin/Globulin Ratio 1.4 (0.9-2) Procalcitonin 0.19 (0-0.5) ng/ml TSH 12.750 H (0.300-4.500) uIu/ml Free T4 0.79 (0.61-1.60) ng/dl SARS-CoV-2 (PCR) NEGATIVE (Negative) Influenza Type A (PCR) Negative (Neg) Influenza Type B (PCR) Negative (Neg) RSV (RT-PCR) Negative (Neg) Administered Medications Discontinued Medications Acetaminophen (Ofirmev) 1,000 mg in 100 mls @ 400 mls/hr IV NOW STA Stop: 01/27/25 21:43 Last Admin: 01/27/25 21:37 Dose: 400 mls/hr Documented By: ivory Sodium Chloride (Nss) 250 mls @ 999 mls/hr IV .Q16M ONE Stop: 01/27/25 21:45 Last Admin: 01/27/25 21:40 Dose: 999 mls/hr Documented By: ivory Ioversol (Optiray 320 100ml) 94 ml IV ONCE ONE Stop: 01/27/25 21:06 Last Admin: 01/27/25 21:06 Dose: 94 ml Documented By: FAVIO Imaging Data Radiologist's Impression: Abdomen/Pelvis CT 01/27/25 19:46 Exam(s): CT ABDOMEN + PELVIS With Contrast IV Amt: 94ml EXAM: CT Abdomen and Pelvis With Intravenous Contrast CLINICAL HISTORY: Reason for exam: weakness, constipation. TECHNIQUE: Axial computed tomography images of the abdomen and pelvis with intravenous contrast. CTDI is 36.05 mGy and DLP is 1565.8 mGy-cm. Automated exposure control was utilized for the study. A dose lowering technique was utilized adhering to the principles of ALARA. CONTRAST: Patient received 94ml of IV contrast COMPARISON: No relevant prior studies available. FINDINGS: Lung bases: Unremarkable. No mass. No consolidation. ABDOMEN: Liver: Unremarkable. No mass. Gallbladder and bile ducts: Unremarkable. No calcified stones. No ductal dilation. Pancreas: Unremarkable. No mass. No ductal dilation. Spleen: Unremarkable. No splenomegaly. Adrenals: Unremarkable. No mass. Kidneys and ureters: 3.7 cm cyst in the lower pole of the right kidney. No follow-up is required. No hydronephrosis. Stomach and bowel: See below. PELVIS: Appendix: No signs of acute appendicitis. There is a large amount of stool throughout the colon measuring up to 6.3 cm in diameter suggesting constipation. No pneumoperitoneum, free fluid, or focal inflammatory process is seen involving the bowel. Bladder: Unremarkable. No mass. Reproductive: Unremarkable as visualized. ABDOMEN and PELVIS: Intraperitoneal space: The uterus is absent. No free fluid is seen in the pelvis. Bones/joints: Iuhr-sv-[id number] degenerative changes throughout the spine. No acute fracture or destructive bone lesion is seen. There is mild chronic appearing grade 1 anterolisthesis of L4 on L5. No dislocation. Soft tissues: Unremarkable. Vasculature: The abdominal aorta is mildly calcified but nondilated. Lymph nodes: Unremarkable. No enlarged lymph nodes. IMPRESSION: No signs of acute appendicitis. There is a large amount of stool throughout the colon measuring up to 6.3 cm in diameter suggesting constipation. No pneumoperitoneum, free fluid, or focal inflammatory process is seen involving the bowel. Electronically signed by: Joel Lucero MD 01/27/25 21:36 PM Chest X-Ray 01/27/25 19:46 Exam(s): XR CXR 1 VIEW EXAM: XR Chest, 1 View CLINICAL HISTORY: Reason for exam: weakness. TECHNIQUE: Frontal view of the chest. COMPARISON: 01/04/2024 FINDINGS: Lungs: Slightly prominent interstitial markings throughout the lungs, unchanged. No acute focal infiltrate or consolidation is seen. Pleural space: Unremarkable. No pneumothorax. Heart: Unremarkable. No cardiomegaly. Mediastinum: The cardiac silhouette is upper normal in size. The mediastinum is within normal limits. Bones/joints: Narrowing of the subacromial space bilaterally suggesting chronic bilateral rotator cuff tears, unchanged. No acute fracture. Soft tissues: There are surgical clips in the left axilla, unchanged. The left breast shadow is absent. Upper abdomen: Unremarkable as visualized. No pneumoperitoneum under the diaphragm. IMPRESSION: Slightly prominent interstitial markings throughout the lungs, unchanged. No acute focal infiltrate or consolidation is seen. Electronically signed by: Joel Lucero MD 01/27/25 21:[address] 01/27/25 19:46 Exam(s): CT HEAD Without Contrast EXAM: CT Head Without Intravenous Contrast CLINICAL HISTORY: Reason for exam: weakness. TECHNIQUE: Axial computed tomography images of the head/brain without intravenous contrast. CTDI is 36.05 mGy and DLP is 1565.8 mGy-cm. Automated exposure control was utilized for the study. A dose lowering technique was utilized adhering to the principles of ALARA. COMPARISON: No relevant prior studies available. FINDINGS: Brain: Partially calcified smooth oval 1.1 x 0.6 cm extra-axial nodule adjacent to the right frontal lobe consistent with small meningioma. No mass effect upon the adjacent brain. Mild cerebral atrophy and periventricular white matter low density consistent with chronic small vessel disease and/or senescent changes. No acute large vessel infarct or intracranial hemorrhage is seen. Ventricles: Unremarkable. No ventriculomegaly. Bones/joints: Unremarkable. No acute fracture. Soft tissues: Unremarkable. Sinuses: Unremarkable as visualized. No acute sinusitis. Mastoid air cells: Unremarkable as visualized. No mastoid effusion. IMPRESSION: Mild cerebral atrophy and periventricular white matter low density consistent with chronic small vessel disease and/or senescent changes. No acute large vessel infarct or intracranial hemorrhage is seen. Electronically signed by: Joel Lucero MD 01/27/25 22:01 PM Discharge Plan Visit Data Chief Complaint: Altered Mental Status Stated Complaint: ALTERED MENTAL STATUS ED Provider: Joel García Discharge Problem: Fatigue, Constipation, Multiple skin tears, Multiple contusions Patient Disposition: Being Evaluated by Hospitalist Condition: Fair Forms Stand Alone Forms: [facility] Prescriptions Prescriptions: No Action furosemide 20 mg tablet 20 mg PO QDAY potassium chloride 20 mEq tablet extended release 20 meq PO BID buprenorphine [Butrans] 5 mcg/hour patch weekly 1 patch transdermal Q7D Qty: 4 0RF Rx Instructions: APPLY 1 PATCH TOPICALLY ONCE WEEKLY ON WEDNESDAY multivitamin Tablet 1 tab PO DAILY solifenacin [Vesicare] 10 mg tablet 10 mg PO DAILY brimonidine 0.2 % drops 1 drp OPL BID ibuprofen 200 mg tablet 200 mg PO Q4H PRN (Reason: Pain) Januvia 100 mg tablet 100 mg PO DAILY latanoprost 0.005 % drops 1 drp OPB HS omeprazole 20 mg capsule,delayed release(DR/EC) 20 mg PO DAILY trazodone 50 mg tablet 50 mg PO HS polyethylene glycol 3350 [Miralax] 17 gram Powder In Packet 17 g PO DAILY PRN (Reason: constipation) Qty: 30 0RF sennosides [senna] 8.6 mg Tablet 8.6 mg PO BID loperamide 2 mg capsule 2 mg PO QID PRN (Reason: Diarrhea) ondansetron HCl 4 mg tablet 4 mg PO Q4H PRN (Reason: Nausea And Vomiting) levothyroxine 88 mcg tablet 88 mcg PO DAILY lorazepam 0.5 mg Tablet 0.5 mg PO DAILY nystatin 100,000 unit/gram cream 0 unit TOPICAL BID PRN (Reason: RASH OR IRRITATION) Rx Instructions: APPLY TOPICALLY TO AFFECTED AREA(S) TWICE DAILY PRN RASH/IRRITATION gabapentin 100 mg Capsule 200 mg PO TID nystatin 100,000 unit/gram powder 0 unit TOPICAL BID PRN (Reason: Rash) Rx Instructions: APPLY TOPICALLY TO AFFECTED AREA(S) TWICE DAILY NEEDED FOR RASH *USE WITH CREAM* colestipol 1 gram tablet 1 g PO BID oxycodone 5 mg tablet 5 mg PO Q4H PRN (Reason: pain) Referrals Referrals: PCP,NO [Primary Care Provider] -
[2025-01-27 20:01] LABS: Hematocrit (blood only) 32.8 % (37.0-47.0); Hemoglobin 11.1 g/dl (12.0-16.0); Immature Granulocytes # (auto) 0.03 K/uL (0.01-0.20); Immature Granulocytes % (auto) 0.4 %; Mean Corpuscular Hemoglobin 36.5 pg (25.0-34.0); Mean Corpuscular Volume 107.9 fL (80.0-100.0); Platelet Count 251 K/uL (130-400); RDW Standard Deviation 57.0 fL (36.4-46.3); Red Blood Count 3.04 M/uL (4.20-5.40); White Blood Count 7.38 K/ul (4.8-10.8)
[2025-01-27 20:15] LABS: Alanine Aminotransferase 7.0 U/L (7-52); Albumin Globulin Ratio 1.4 (0.9-2); Alkaline Phosphatase 106.0 U/L (34-104); Anion Gap 3.0 (3-11); Bilirubin,Total 0.5 mg/dl (0.2-1.0); Blood Urea Nitrogen 14.0 mg/dl (6-23); Calcium 9.1 mg/dl (8.6-10.3); Carbon Dioxide 30.0 mmol/L (21-32); Chloride 107.0 mmol/L (98-107); Creatine Kinase 33.0 U/L (26-192); Creatinine Clr Calc Pharmacy 112.7 ml/min; Globulin 2.4 gm/dl (2.5-4.0); Glucose 116.0 mg/dl (70-99(Fasting)); Magnesium 1.9 mg/dl (1.7-2.4); Potassium 4.1 mmol/L (3.5-5.1); Sodium 140.0 mmol/L (136-145); Total Protein 5.7 gm/dl (6.0-8.3)
[2025-01-27 20:31] LABS: Thyroid Stimulating Hormone 12.75 uIu/ml (0.300-4.500)
[2025-01-27 21:03] LABS: Influenza A virus by PCR Negative (Neg); Influenza B virus by PCR Negative (Neg); SARS CoV2 RNA(COVID-19) Ceph NEGATIVE (Negative)
[2025-01-27] MEDS: OPTIRAY 320 100ml IV ONE (21:06)
--- NOTE | 2025-01-27 21:31 | XRay Report ---
Exam(s): XR CXR 1 VIEW EXAM: XR Chest, 1 View CLINICAL HISTORY: Reason for exam: weakness. TECHNIQUE: Frontal view of the chest. COMPARISON: 01/04/2024 FINDINGS: Lungs: Slightly prominent interstitial markings throughout the lungs, unchanged. No acute focal infiltrate or consolidation is seen. Pleural space: Unremarkable. No pneumothorax. Heart: Unremarkable. No cardiomegaly. Mediastinum: The cardiac silhouette is upper normal in size. The mediastinum is within normal limits. Bones/joints: Narrowing of the subacromial space bilaterally suggesting chronic bilateral rotator cuff tears, unchanged. No acute fracture. Soft tissues: There are surgical clips in the left axilla, unchanged. The left breast shadow is absent. Upper abdomen: Unremarkable as visualized. No pneumoperitoneum under the diaphragm. IMPRESSION: Slightly prominent interstitial markings throughout the lungs, unchanged. No acute focal infiltrate or consolidation is seen. Electronically signed by: Joel Lucero MD 01/27/25 21:30 PM
[2025-01-27] MEDS: ACETAMINOPHEN 1,000 MG/100 ML VIAL IV STA (21:37)
--- NOTE | 2025-01-27 21:37 | CT Scan Report ---
Exam(s): CT ABDOMEN + PELVIS With Contrast IV Amt: 94ml EXAM: CT Abdomen and Pelvis With Intravenous Contrast CLINICAL HISTORY: Reason for exam: weakness, constipation. TECHNIQUE: Axial computed tomography images of the abdomen and pelvis with intravenous contrast. CTDI is 36.05 mGy and DLP is 1565.8 mGy-cm. Automated exposure control was utilized for the study. A dose lowering technique was utilized adhering to the principles of ALARA. CONTRAST: Patient received 94ml of IV contrast COMPARISON: No relevant prior studies available. FINDINGS: Lung bases: Unremarkable. No mass. No consolidation. ABDOMEN: Liver: Unremarkable. No mass. Gallbladder and bile ducts: Unremarkable. No calcified stones. No ductal dilation. Pancreas: Unremarkable. No mass. No ductal dilation. Spleen: Unremarkable. No splenomegaly. Adrenals: Unremarkable. No mass. Kidneys and ureters: 3.7 cm cyst in the lower pole of the right kidney. No follow-up is required. No hydronephrosis. Stomach and bowel: See below. PELVIS: Appendix: No signs of acute appendicitis. There is a large amount of stool throughout the colon measuring up to 6.3 cm in diameter suggesting constipation. No pneumoperitoneum, free fluid, or focal inflammatory process is seen involving the bowel. Bladder: Unremarkable. No mass. Reproductive: Unremarkable as visualized. ABDOMEN and PELVIS: Intraperitoneal space: The uterus is absent. No free fluid is seen in the pelvis. Bones/joints: Ixal-[id number] degenerative changes throughout the spine. No acute fracture or destructive bone lesion is seen. There is mild chronic appearing grade 1 anterolisthesis of L4 on L5. No dislocation. Soft tissues: Unremarkable. Vasculature: The abdominal aorta is mildly calcified but nondilated. Lymph nodes: Unremarkable. No enlarged lymph nodes. IMPRESSION: No signs of acute appendicitis. There is a large amount of stool throughout the colon measuring up to 6.3 cm in diameter suggesting constipation. No pneumoperitoneum, free fluid, or focal inflammatory process is seen involving the bowel. Electronically signed by: Joel Lucero MD 01/27/25 21:36 PM
[2025-01-27] MEDS: SODIUM CHLORIDE 0.9% 250 ML IV ONE (21:40)
--- NOTE | 2025-01-27 22:02 | CT Scan Report ---
Exam(s): CT HEAD Without Contrast EXAM: CT Head Without Intravenous Contrast CLINICAL HISTORY: Reason for exam: weakness. TECHNIQUE: Axial computed tomography images of the head/brain without intravenous contrast. CTDI is 36.05 mGy and DLP is 1565.8 mGy-cm. Automated exposure control was utilized for the study. A dose lowering technique was utilized adhering to the principles of ALARA. COMPARISON: No relevant prior studies available. FINDINGS: Brain: Partially calcified smooth oval 1.1 x 0.6 cm extra-axial nodule adjacent to the right frontal lobe consistent with small meningioma. No mass effect upon the adjacent brain. Mild cerebral atrophy and periventricular white matter low density consistent with chronic small vessel disease and/or senescent changes. No acute large vessel infarct or intracranial hemorrhage is seen. Ventricles: Unremarkable. No ventriculomegaly. Bones/joints: Unremarkable. No acute fracture. Soft tissues: Unremarkable. Sinuses: Unremarkable as visualized. No acute sinusitis. Mastoid air cells: Unremarkable as visualized. No mastoid effusion. IMPRESSION: Mild cerebral atrophy and periventricular white matter low density consistent with chronic small vessel disease and/or senescent changes. No acute large vessel infarct or intracranial hemorrhage is seen. Electronically signed by: Joel Lucero MD 01/27/25 22:01 PM
[2025-01-27 23:11] LABS: Appearance Urine Clear (Clear); Bacteria Urine Automated None Seen (None Seen); Epithelial Cell Urine Auto 0-2 /hpf (0-2); Glucose Urine UA Negative (Negative); RBC Urine Automated 0-2 /hpf (0-2); WBC Urine Automated 0-5 /hpf (0-5)
[2025-01-27] MEDS: ACETAMINOPHEN 325 MG TAB PO STA (23:17)
--- NOTE | 2025-01-27 23:23 | History & Physical Report ---
Date of Service January 27, 2025 Assessment & Plan (1) AMS (altered mental status): Plan: 89-year-old female who is currently at [facility] with past medical history significant for type 2 diabetes, history of breast cancer, macular degeneration, hypothyroidism, GERD, chronic pain, was brought in because of confusion. Seems patient is very fatigued today. And was difficult to awaken. [facility] noted low blood pressure today. Per EMS her blood pressure was okay. Blood sugars were okay. Patient is also dealing with constipation. And patient was brought to the hospital. Patient says she has dry mouth. Could tell her name. Could tell that she is in the hospital. Could tell current month. But thinks it is 2023. She could not remember why she was brought here today. States she is dealing with constipation and taking MiraLAX. Patient states she had a bowel movement yesterday. She had a headache earlier that resolved. Vision is okay. Denies runny nose or sore throat. Denies cough. Denies chest pain or shortness of breath. Denies abdominal pain. Denies nausea. States micturating okay. States she has weakness in the left side. Patient states that she is nonambulatory. Patient states she needs help transferring to the wheelchair. Patient states she did not eat anything today. Patient seems to have chronic swelling of the legs. She has chronic pain issues and follows with pain management and uses Butrans patch. Patient also seem to have a skin tear left upper arm from transferring toilet earlier this week and was bandaged at the facility. Tried to call the daughter and not able to reach her currently. Altered mental status Seems fatigued, sleepy and low blood pressure at [facility] Currently seems to be improved Blood pressure somewhat soft UA is okay COVID, flu, RSV negative CT head no acute findings Chest x-ray no acute findings CT abdomen pelvis shows constipation but no acute findings Possible dehydration Will place on gentle fluids Will monitor in the hospital Constipation Stool softeners and if no improvement will do enema Type 2 diabetes Hold Januvia Sliding scale Will monitor Lower extremity edema On Lasix Will check Dopplers Echo from January 2024 shows EF of 50 to 55% Chronic pain Continue her home pain medications Hypothyroidism On Synthyroid TSH is 12 but free T4 is 0.7 Needs follow-up Macular degeneration Continue eyedrops Left Upper arm wound wound care DVT prophylaxis Heparin subcu Disposition Med/telemetry CODE STATUS DNR/DNI per POLST form. Can confirm with the daughter History of Present Illness Chief Complaint: Altered mental status Primary Care Provider: CHANTAL PCP 89-year-old female who is currently at [facility] with past medical history significant for type 2 diabetes, history of breast cancer, macular degeneration, hypothyroidism, GERD, chronic pain, was brought in because of confusion. Seems patient is very fatigued today. And was difficult to awaken. [facility] noted low blood pressure today. Per EMS her blood pressure was okay. Blood sugars were okay. Patient is also dealing with constipation. And patient was brought to the hospital. Patient says she has dry mouth. Could tell her name. Could tell that she is in the hospital. Could tell current month. But thinks it is 2023. She could not remember why she was brought here today. States she is dealing with constipation and taking MiraLAX. Patient states she had a bowel movement yesterday. She had a headache earlier that resolved. Vision is okay. Denies runny nose or sore throat. Denies cough. Denies chest pain or shortness of breath. Denies abdominal pain. Denies nausea. States micturating okay. States she has weakness in the left side. Patient states that she is nonambulatory. Patient states she needs help transferring to the wheelchair. Patient states she did not eat anything today. Patient seems to have chronic swelling of the legs. She has chronic pain issues and follows with pain management and uses Butrans patch. Patient also seem to h ave a skin tear left upper arm from transferring toilet earlier this week and was bandaged at the facility. Tried to call the daughter and not able to reach her currently. Past med history. As mentioned above. Past surgical history. Bilateral knee replacement. History of hysterectomy. Social history. Former smoker. No alcohol. No drug use. Family history. No family history in file. Allergies Allergy/AdvReac Type Severity Reaction Status Date / Time Sulfa (Sulfonamide Allergy Mild Unknown Verified 11/01/24 14:05 Antibiotics) Home Medications Medication Instructions Recorded Confirmed Type brimonidine 0.2 % eye drops 1 drp OPL BID 08/04/23 01/27/25 History ibuprofen 200 mg tablet 200 mg PO Q4H PRN Pain 08/04/23 01/27/25 History latanoprost 0.005 % eye drops 1 drp OPB HS 08/04/23 01/27/25 History multivitamin 1 tab PO DAILY 08/04/23 01/27/25 History omeprazole 20 mg capsule,delayed 20 mg PO DAILY 08/04/23 01/27/25 History release sitagliptin phosphate 100 mg 100 mg PO DAILY 08/04/23 01/27/25 History tablet (Januvia) solifenacin 10 mg tablet (Vesicare) 10 mg PO DAILY 08/04/23 01/27/25 History trazodone 50 mg tablet 50 mg PO HS 08/04/23 01/27/25 History polyethylene glycol 3350 17 gram 17 g PO DAILY PRN constipation #30 02/08/24 01/27/25 Rx oral powder packet (Miralax) ea furosemide 20 mg tablet 20 mg PO QDAY 08/11/24 01/27/25 History potassium chloride 20 mEq 20 meq PO BID 08/11/24 01/27/25 History tablet,extended release buprenorphine 5 mcg/hour weekly 1 patch transdermal Q7D #4 ea 11/07/24 01/27/25 Rx transdermal patch (Butrans) colestipol 1 gram tablet 1 g PO BID 01/27/25 01/27/25 History gabapentin 100 mg capsule 200 mg PO TID 01/27/25 01/27/25 History levothyroxine 88 mcg tablet 88 mcg PO DAILY 01/27/25 01/27/25 History loperamide 2 mg capsule 2 mg PO QID PRN Diarrhea 01/27/25 01/27/25 History lorazepam 0.5 mg tablet 0.5 mg PO DAILY 01/27/25 01/27/25 History nystatin 100,000 unit/gram topical 0 unit topical BID PRN RASH OR 01/27/25 01/27/25 History cream IRRITATION nystatin 100,000 unit/gram topical 0 unit topical BID PRN Rash 01/27/25 01/27/25 History powder ondansetron HCl 4 mg tablet 4 mg PO Q4H PRN Nausea And Vomiting 01/27/25 History oxycodone 5 mg tablet 5 mg PO Q4H PRN pain 01/27/25 01/27/25 History sennosides 8.6 mg tablet (senna) 8.6 mg PO BID 01/27/25 01/27/25 History Past Med/Surg History Problem List (Updated 01/27/25 @ 23:32 by Negro Figueroa MD) AMS (altered mental status) Multiple contusions (Acute) Multiple skin tears (Acute) Constipation (Acute) Fatigue (Acute) Myofascial pain Osteoarthritis of glenohumeral joint Elevated liver enzymes (Acute) Elevated troponin (Acute) Acute hyponatremia (Acute) Weakness (Acute) Elevated troponin Transaminitis Dehydration Acute hyponatremia Generalized weakness Claw hand of left upper extremity Left arm weakness Medical History History of left breast cancer chemo and xrt in 1999 Macular degeneration of right eye T2DM (type 2 diabetes mellitus) Rotator cuff arthropathy Surgical History History of knee replacement procedure of right knee History of knee replacement procedure of left knee Hx of hysterectomy Social History Smoking Status: Never smoker Tobacco Type: Cigarettes Hx Alcohol Use: No Hx Substance Use: No Preferred Language: Czech Communication Ability: Effective Pipe Washer Required: No Beliefs That Will Affect Care: None marital status: / Current Living Situation: Personal Care Facility Current Living Situation Comment: Lives in assisted living Other Information That Helps Us Care for You: No Feels Safe at Home: Yes Safety Concerns: Feels Safe At This Time Assistive Devices: Walker Review of Systems Review of Systems: All systems reviewed & are unremarkable except as noted in HPI & below Physical Exam Physical Exam: General- Not in distress. Head- atraumatic Eyes- PERRL. ENT- oropharynx dry Neck- supple, no JVD. Lungs- clear to auscultation no wheezing or crackles Heart- regular rhythm; no murmur, no gallop. Abdomen- normal bowel sounds, soft, nontender, no distension Extremities- b/l lower extremity edema with some chronic skin changes seen Neuro- alert, oriented ; PERRL, no facial palsy; no dysarthria; left sided weakness Results & Data Results & Data Vital Signs (Past 12 Hours) Vital Signs Temp Pulse Resp BP Pulse Ox O2 Del Method 01/27/25 23:11 83 L Room Air, Nasal Cannula 01/27/25 21:21 80 24 01/27/25 20:51 62 12 98 01/27/25 20:45 62 13 99 01/27/25 20:30 66 20 97 01/27/25 20:24 65 12 100 01/27/25 20:15 65 15 98 01/27/25 20:00 113/72 01/27/25 20:00 69 18 100 01/27/25 19:58 66 01/27/25 19:46 100 Room Air 01/27/25 19:14 36.6 C 72 14 112/79 100 Room Air Diagnostic Findings Laboratory Results WBC 7.38 K/ul (4.8-10.8) 01/27/25 Unknown RBC 3.04 M/uL (4.20-5.40) L 01/27/25 Unknown Hgb 11.1 g/dl (12.0-16.0) L 01/27/25 Unknown Hct 32.8 % (37.0-47.0) L 01/27/25 Unknown MCV 107.9 fL (80.0-100.0) H 01/27/25 Unknown MCH 36.5 pg (25.0-34.0) H 01/27/25 Unknown MCHC 33.8 g/dL (32.0-36.0) 01/27/25 Unknown RDW Std Deviation 57.0 fL (36.4-46.3) H 01/27/25 Unknown RDW Coeff of Oswaldo 14.6 % (11.5-14.5) H 01/27/25 Unknown Plt Count 251 K/uL (130-400) 01/27/25 Unknown MPV 10.7 fL (9.4-12.4) 01/27/25 Unknown Immature Gran % (Auto) 0.4 % 01/27/25 Unknown Neut % (Auto) 49.9 % 01/27/25 Unknown Lymph % (Auto) 42.0 % 01/27/25 Unknown Barren % (Auto) 6.0 % 01/27/25 Unknown Eos % (Auto) 1.4 % 01/27/25 Unknown Baso % (Auto) 0.3 % 01/27/25 Unknown Neut # (Auto) 3.69 K/uL (1.40-6.50) 01/27/25 Unknown Lymph # (Auto) 3.10 K/uL (1.20-3.40) 01/27/25 Unknown Barren # (Auto) 0.44 K/uL (0.11-0.59) 01/27/25 Unknown Eos # (Auto) 0.10 K/uL (0.00-0.50) 01/27/25 Unknown Baso # (Auto) 0.02 K/uL (0.00-0.20) 01/27/25 Unknown Immature Gran # (Auto) 0.03 K/uL (0.01-0.20) 01/27/25 Unknown Sodium 140 mmol/L (136-145) 01/27/25 Unknown Potassium 4.1 mmol/L (3.5-5.1) 01/27/25 Unknown Chloride 107 mmol/L (98-107) 01/27/25 Unknown Carbon Dioxide 30 mmol/L (21-32) 01/27/25 Unknown Anion Gap 3 (3-11) 01/27/25 Unknown BUN 14 mg/dl (6-23) 01/27/25 Unknown Creatinine 0.28 mg/dl (0.6-1.2) L 01/27/25 Unknown Est Cr Clr Drug Dosing 112.7 ml/min 01/27/25 Unknown eGFR 103.03 01/27/25 Unknown BUN/Creatinine Ratio 50.0 (10-20) H 01/27/25 Unknown Glucose 116 mg/dl (70-99(Fasting)) H 01/27/25 Unknown POC Glucose 114 mg/dl (70-99) H 01/27/25 19:32 Calcium 9.1 mg/dl (8.6-10.3) 01/27/25 Unknown Magnesium 1.9 mg/dl (1.7-2.4) 01/27/25 Unknown Total Bilirubin 0.5 mg/dl (0.2-1.0) 01/27/25 Unknown AST 14 U/L (13-39) 01/27/25 Unknown ALT 7 U/L (7-52) 01/27/25 Unknown Alkaline Phosphatase 106 U/L (34-104) H 01/27/25 Unknown Total Creatine Kinase 33 U/L (26-192) 01/27/25 Unknown Troponin I High Sens 8.4 pg/ml (0-14) 01/27/25 Unknown Total Protein 5.7 gm/dl (6.0-8.3) L 01/27/25 Unknown Albumin 3.3 gm/dl (3.4-5.0) L 01/27/25 Unknown Globulin 2.4 gm/dl (2.5-4.0) L 01/27/25 Unknown Albumin/Globulin Ratio 1.4 (0.9-2) 01/27/25 Unknown Procalcitonin 0.19 ng/ml (0-0.5) 01/27/25 Unknown TSH 12.750 uIu/ml (0.300-4.500) H 01/27/25 Unknown Free T4 0.79 ng/dl (0.61-1.60) 01/27/25 Unknown Urine Color Yellow 01/27/25:35 Urine Appearance Clear (Clear) 01/27/25 22:35 Urine pH 5.5 (4.5-7.5) 01/27/25 22:35 Ur Specific Lefor 1.022 (1.000-1.030) 01/27/25 22:35 Urine Protein Negative (Negative) 01/27/25 22:35 Urine Glucose (UA) Negative (Negative) 01/27/25 22:35 Urine Ketones Negative (Negative) 01/27/25 22:35 Urine Blood Negative (Negative) 01/27/25:35 Urine Nitrite Negative (Negative) 01/27/25 22:35 Urine Bilirubin Negative (Negative) 01/27/25 22:35 Urine Urobilinogen Negative (Negative) 01/27/25 22:35 Ur Leukocyte Esterase Trace (Negative) H 01/27/25 22:35 Urine WBC (Auto) 0-5 /hpf (0-5) 01/27/25 22:35 Urine RBC (Auto) 0-2 /hpf (0-2) 01/27/25 22:35 U Hyaline Cast (Auto) 11-20 /lpf (0-2) H 01/27/25 22:35 U Epithel Cells (Auto) 0-2 /hpf (0-2) 01/27/25 22:35 Urine Bacteria (Auto) None Seen (None Seen) 01/27/25 22:35 Calcium Oxalate Crystal Present (None Prsent) A 01/27/25 22:35 Hyaline Casts Present /lpf (None Presnt) A 01/27/25 22:35 Urine Comment 01/27/25 22:35 SARS-CoV-2 (PCR) NEGATIVE (Negative) 01/27/25 20:15 Influenza Type A (PCR) Negative (Neg) 01/27/25 20:15 Influenza Type B (PCR) Negative (Neg) 01/27/25 20:15 RSV (RT-PCR) Negative (Neg) 01/27/25 20:15 Impressions Abdomen/Pelvis CT 01/27/25 19:46 Exam(s): CT ABDOMEN + PELVIS With Contrast IV Amt: 94ml EXAM: CT Abdomen and Pelvis With Intravenous Contrast CLINICAL HISTORY: Reason for exam: weakness, constipation. TECHNIQUE: Axial computed tomography images of the abdomen and pelvis with intravenous contrast. CTDI is 36.05 mGy and DLP is 1565.8 mGy-cm. Automated exposure control was utilized for the study. A dose lowering technique was utilized adhering to the principles of ALARA. CONTRAST: Patient received 94ml of IV contrast COMPARISON: No relevant prior studies available. FINDINGS: Lung bases: Unremarkable. No mass. No consolidation. ABDOMEN: Liver: Unremarkable. No mass. Gallbladder and bile ducts: Unremarkable. No calcified stones. No ductal dilation. Pancreas: Unremarkable. No mass. No ductal dilation. Spleen: Unremarkable. No splenomegaly. Adrenals: Unremarkable. No mass. Kidneys and ureters: 3.7 cm cyst in the lower pole of the right kidney. No follow-up is required. No hydronephrosis. Stomach and bowel: See below. PELVIS: Appendix: No signs of acute appendicitis. There is a large amount of stool throughout the colon measuring up to 6.3 cm in diameter suggesting constipation. No pneumoperitoneum, free fluid, or focal inflammatory process is seen involving the bowel. Bladder: Unremarkable. No mass. Reproductive: Unremarkable as visualized. ABDOMEN and PELVIS: Intraperitoneal space: The uterus is absent. No free fluid is seen in the pelvis. Bones/joints: Qnzy-lo-inlugrde degenerative changes throughout the spine. No acute fracture or destructive bone lesion is seen. There is mild chronic appearing grade 1 anterolisthesis of L4 on L5. No dislocation. Soft tissues: Unremarkable. Vasculature: The abdominal aorta is mildly calcified but nondilated. Lymph nodes: Unremarkable. No enlarged lymph nodes. IMPRESSION: No signs of acute appendicitis. There is a large amount of stool throughout the colon measuring up to 6.3 cm in diameter suggesting constipation. No pneumoperitoneum, free fluid, or focal inflammatory process is seen involving the bowel. Electronically signed by: Joel Lucero MD 01/27/25 21:36 PM Chest X-Ray 01/27/25 19:46 Exam(s): XR CXR 1 VIEW EXAM: XR Chest, 1 View CLINICAL HISTORY: Reason for exam: weakness. TECHNIQUE: Frontal view of the chest. COMPARISON: 01/04/2024 FINDINGS: Lungs: Slightly prominent interstitial markings throughout the lungs, unchanged. No acute focal infiltrate or consolidation is seen. Pleural space: Unremarkable. No pneumothorax. Heart: Unremarkable. No cardiomegaly. Mediastinum: The cardiac silhouette is upper normal in size. The mediastinum is within normal limits. Bones/joints: Narrowing of the subacromial space bilaterally suggesting chronic bilateral rotator cuff tears, unchanged. No acute fracture. Soft tissues: There are surgical clips in the left axilla, unchanged. The left breast shadow is absent. Upper abdomen: Unremarkable as visualized. No pneumoperitoneum under the diaphragm. IMPRESSION: Slightly prominent interstitial markings throughout the lungs, unchanged. No acute focal infiltrate or consolidation is seen. Electronically signed by: Joel Lucero MD 01/27/25 21:[address] 01/27/25 19:46 Exam(s): CT HEAD Without Contrast EXAM: CT Head Without Intravenous Contrast CLINICAL HISTORY: Reason for exam: weakness. TECHNIQUE: Axial computed tomography images of the head/brain without intravenous contrast. CTDI is 36.05 mGy and DLP is 1565.8 mGy-cm. Automated exposure control was utilized for the study. A dose lowering technique was utilized adhering to the principles of ALARA. COMPARISON: No relevant prior studies available. FINDINGS: Brain: Partially calcified smooth oval 1.1 x 0.6 cm extra-axial nodule adjacent to the right frontal lobe consistent with small meningioma. No mass effect upon the adjacent brain. Mild cerebral atrophy and periventricular white matter low density consistent with chronic small vessel disease and/or senescent changes. No acute large vessel infarct or intracranial hemorrhage is seen. Ventricles: Unremarkable. No ventriculomegaly. Bones/joints: Unremarkable. No acute fracture. Soft tissues: Unremarkable. Sinuses: Unremarkable as visualized. No acute sinusitis. Mastoid air cells: Unremarkable as visualized. No mastoid effusion. IMPRESSION: Mild cerebral atrophy and periventricular white matter low density consistent with chronic small vessel disease and/or senescent changes. No acute large vessel infarct or intracranial hemorrhage is seen. Electronically signed by: Joel Lucero MD 01/27/25 22:01 PM ECG Additional Comments: ECG. Undetermined rhythm at rate of 68. Left anterior fascicular block. Minimal voltage criteria for LVH. QTc 467 Code Status & VTE Plan VTE Prophylaxis Plan VTE Prophylaxis will be ordered: Yes
[2025-01-28] MEDS: KETOROLAC TROMETHAMINE 15 MG/ML VIAL IV ONE (02:03)
[2025-01-28] MEDS ORDERED: NITROGLYCERIN SL 0.4 MG/TAB TAB SL PRN (04:27)
[2025-01-28] MEDS ORDERED: DEXTROSE 50% 50 ML SYRINGE IV PRN (04:27)
[2025-01-28] MEDS ORDERED: GLUCOSE 40% GEL 15 GM TUBE PO PRN (04:27)
[2025-01-28] MEDS ORDERED: GLUCOSE 10 TAB/TUBE PO PRN (04:27)
[2025-01-28] MEDS ORDERED: CARBOHYDRATES FOR HYPOGLYCEMIA PO PRN (04:27)
[2025-01-28] MEDS ORDERED: GLUCAGON FOR INJ 1 MG VIAL SQ PRN (04:27)
[2025-01-28] MEDS: LACTATED RINGER'S 1,000 ML IV SCH (05:16)
[2025-01-28] MEDS: CHECK BUPRENORPHINE PATCH SCH (05:16)
[2025-01-28] MEDS: LEVOTHYROXINE SODIUM 88 MCG TABLET PO SCH (05:21)
[2025-01-28] MEDS: HEPARIN SOD 5,000 UNIT/0.5 ML VIAL SQ SCH (05:21)
[2025-01-28 06:21] LABS: Hematocrit (blood only) 32.3 % (37.0-47.0); Hemoglobin 11.1 g/dl (12.0-16.0); Immature Granulocytes # (auto) 0.03 K/uL (0.01-0.20); Immature Granulocytes % (auto) 0.4 %; Mean Corpuscular Hemoglobin 36.4 pg (25.0-34.0); Mean Corpuscular Volume 105.9 fL (80.0-100.0); Platelet Count 236 K/uL (130-400); RDW Standard Deviation 57.1 fL (36.4-46.3); Red Blood Count 3.05 M/uL (4.20-5.40); White Blood Count 7.67 K/ul (4.8-10.8)
[2025-01-28 06:34] LABS: Anion Gap 3.0 (3-11); Blood Urea Nitrogen 13.0 mg/dl (6-23); Calcium 9.1 mg/dl (8.6-10.3); Carbon Dioxide 28.0 mmol/L (21-32); Chloride 108.0 mmol/L (98-107); Creatinine Clr Calc Pharmacy 112.7 ml/min; Glucose 100.0 mg/dl (70-99(Fasting)); Magnesium 2.0 mg/dl (1.7-2.4); Potassium 4.1 mmol/L (3.5-5.1); Sodium 139.0 mmol/L (136-145)
[2025-01-28 07:20] LABS: Hemoglobin A1C 6.1 % (4.5-5.6)
--- NOTE | 2025-01-28 08:02 | Hospitalist Progress Note ---
Date of Service January 28, 2025 Assessment & Plan (1) AMS (altered mental status): Plan: 89-year-old female who is currently at [facility] with past medical history significant for type 2 diabetes, history of breast cancer, macular degeneration, hypothyroidism, GERD, chronic pain, was brought in because of confusion. Seems patient is very fatigued today. And was difficult to awaken. care home noted low blood pressure today. Per EMS her blood pressure was okay. Blood sugars were okay. Patient is also dealing with constipation. And patient was brought to the hospital. Patient says she has dry mouth. Could tell her name. Could tell that she is in the hospital. Could tell current month. But thinks it is 2023. She could not remember why she was brought here today. States she is dealing with constipation and taking MiraLAX. Patient states she had a bowel movement yesterday. She had a headache earlier that resolved. Vision is okay. Denies runny nose or sore throat. Denies cough. Denies chest pain or shortness of breath. Denies abdominal pain. Denies nausea. States micturating okay. States she has weakness in the left side. Patient states that she is nonambulatory. Patient states she needs help transferring to the wheelchair. Patient states she did not eat anything today. Patient seems to have chronic swelling of the legs. She has chronic pain issues and follows with pain management and uses Butrans patch. Patient also seem to have a skin tear left upper arm from transferring toilet earlier this week and was bandaged at the facility. Tried to call the daughter and not able to reach her currently. Altered mental status - now resolved Seems fatigued, sleepy and low blood pressure at senior living Currently seems to be improved Blood pressure somewhat on lower side UA is ok COVID, flu, RSV negative CT head no acute findings Chest x-ray no acute findings CT abdomen pelvis shows constipation but no acute findings Possible dehydration placed on gentle fluids on admission Will monitor in the hospital Currently pt seems improved, she is awake, alert, able to answer appropriately Constipation Stool softeners and if no improvement will do enema Type 2 diabetes Hold Januvia Sliding scale Will monitor Lower extremity edema On Lasix Dopplers - negative for UTI Echo from January 2024 shows EF of 50 to 55% Chronic pain Continue her home pain medications Hypothyroidism On Synthyroid TSH is 12 but free T4 is 0.7 Needs follow-up Macular degeneration Continue eyedrops Left Upper arm wound wound care DVT prophylaxis: Heparin subcu Disposition: Med/telemetry CODE STATUS DNR/DNI per POLST form. Can confirm with the daughter Admission and Anticipated Discharge Date Admission Date: January 27, 2025 Subjective Pt seen in follow up of generalized weakness, BP on lower side Also found to be constipated Currently lying down in bed in NAD, she is awake, alert, able to answer questions appropriately She remembers she was more sleepy yesterday - and says - "What else am I gonna do? I may as well sleep". Then I told her she was reportedly confused, she answers "I guess I was a little confused" Currently denies any fever, chills, chest pain, shortness of breath, abd. pain, n/v Pt says she likes ice water, and that she needs to sit up straight to eat or drink, discussed w/ RN in detail Pt also reports difficulty moving left arm - chronic, and difficulty moving left leg - also chronic per pt Review of Systems Review of Systems: All systems reviewed & are unremarkable except as noted in Subjective Physical Exam Physical Exam: General- Not in distress. Head- atraumatic Eyes- PERRL. Neck- supple Lungs- clear to auscultation no wheezing or crackles Heart- regular rhythm; no murmur, no gallop. Abdomen- normal bowel sounds, soft, nontender, no distension Extremities- b/l lower extremity edema with some chronic skin changes seen, LLE weakness and LUE weakness - chronic per pt Neuro- awake, and alert, pleasant and answers appropriately ; PERRL, no facial palsy; no dysarthria; left sided weakness Results & Data Results & Data Vital Signs (Past 12 Hours) Vital Signs Temp Pulse Pulse Resp BP BP Pulse Ox 01/28/25 04:44 36.8 C 64 16 116/69 95 01/28/25 03:30 68 01/28/25 02:25 55 L 17 107/59 L 100 01/28/25 01:00 55 L 17 107/59 L 100 01/27/25 23:50 60 01/27/25 23:15 57 L 12 100 01/27/25 23:11 83 L 01/27/25 23:03 60 15 98 01/27/25 23:00 94 H 17 104/58 L 96 01/27/25 23:00 96/53 L 01/27/25 23:00 96/53 L 01/27/25 22:36 62 17 95 01/27/25 22:33 66 12 95 01/27/25 22:30 99/60 L 01/27/25 22:30 99/60 L 01/27/25 22:30 99/60 L 01/27/25 22:21 62 18 100 01/27/25 22:18 62 24 99 01/27/25 22:00 95/55 L 01/27/25 22:00 64 15 99 01/27/25 21:45 64 15 97 01/27/25 21:21 80 24 01/27/25 20:51 62 12 98 01/27/25 20:45 62 13 99 01/27/25 20:30 66 20 97 01/27/25 20:24 65 12 100 01/27/25 20:15 65 15 98 01/27/25 20:00 113/72 01/27/25 20:00 69 18 100 O2 Del Method O2 Flow Rate 01/28/25 04:44 Nasal Cannula 2 01/28/25 03:30 01/28/25 02:25 Nasal Cannula 2 01/28/25 01:00 Nasal Cannula 2 01/27/25 23:50 01/27/25 23:15 01/27/25 23:11 Room Air, Nasal Cannula 01/27/25 23:03 01/27/25 23:00 Nasal Cannula 2 01/27/25 23:00 01/27/25 23:00 01/27/25 22:36 01/27/25 22:33 01/27/25 22:30 01/27/25 22:30 01/27/25 22:30 01/27/25 22:21 01/27/25 22:18 01/27/25 22:00 01/27/25 22:00 01/27/25 21:45 01/27/25 21:21 01/27/25 20:51 01/27/25 20:45 01/27/25 20:30 01/27/25 20:24 01/27/25 20:15 01/27/25 20:00 01/27/25 20:00 Laboratory Results 01/28/25 01/28/25 01/27/25 Range/Units 07:44 05:42 Unknown WBC 7.67 7.38 (4.8-10.8) K/ul RBC 3.05 L 3.04 L (4.20-5.40) M/uL Hgb 11.1 L 11.1 L (12.0-16.0) g/dl Hct 32.3 L 32.8 L (37.0-47.0) % MCV 105.9 H 107.9 H (80.0-100.0) fL MCH 36.4 H 36.5 H (25.0-34.0) pg MCHC 34.4 33.8 (32.0-36.0) g/dL RDW Std Deviation 57.1 H 57.0 H (36.4-46.3) fL RDW Coeff of Oswaldo 14.5 14.6 H (11.5-14.5) % Plt Count 236 251 (130-400) K/uL MPV 11.1 10.7 (9.4-12.4) fL Immature Gran % (Auto) 0.4 0.4 % Neut % (Auto) 59.8 49.9 % Lymph % (Auto) 31.6 42.0 % [place] % (Auto) 6.3 6.0 % Eos % (Auto) 1.4 1.4 % Baso % (Auto) 0.5 0.3 % Neut # (Auto) 4.59 3.69 (1.40-6.50) K/uL Lymph # (Auto) 2.42 3.10 (1.20-3.40) K/uL [place] # (Auto) 0.48 0.44 (0.11-0.59) K/uL Eos # (Auto) 0.11 0.10 (0.00-0.50) K/uL Baso # (Auto) 0.04 0.02 (0.00-0.20) K/uL Immature Gran # (Auto) 0.03 0.03 (0.01-0.20) K/uL Sodium 139 140 (136-145) mmol/L Potassium 4.1 4.1 (3.5-5.1) mmol/L Chloride 108 H 107 (98-107) mmol/L Carbon Dioxide 28 30 (21-32) mmol/L Anion Gap 3 3 (3-11) BUN 13 14 (6-23) mg/dl Creatinine 0.28 L 0.28 L (0.6-1.2) mg/dl Est Cr Clr Drug Dosing 112.7 112.7 ml/min eGFR 103.03 103.03 BUN/Creatinine Ratio 46.4 H 50.0 H (10-20) Glucose 100 H 116 H (70-99(Fasting)) mg/dl POC Glucose 120 H (70-99) mg/dl Estimat Average Glucose 128 mg/dl Hemoglobin A1c 6.1 H (4.5-5.6) % Calcium 9.1 9.1 (8.6-10.3) mg/dl Magnesium 2.0 1.9 (1.7-2.4) mg/dl Total Bilirubin 0.5 (0.2-1.0) mg/dl AST 14 (13-39) U/L ALT 7 (7-52) U/L Alkaline Phosphatase 106 H (34-104) U/L Total Creatine Kinase 33 (26-192) U/L Troponin I High Sens 8.4 (0-14) pg/ml Total Protein 5.7 L (6.0-8.3) gm/dl Albumin 3.3 L (3.4-5.0) gm/dl Globulin 2.4 L (2.5-4.0) gm/dl Albumin/Globulin Ratio 1.4 (0.9-2) Procalcitonin 0.19 (0-0.5) ng/ml TSH 12.750 H (0.300-4.500) uIu/ml Free T4 0.79 (0.61-1.60) ng/dl Urine Color Urine Appearance (Clear) Urine pH (4.5-7.5) Ur Specific [place] (1.000-1.030) Urine Protein (Negative) Urine Glucose (UA) (Negative) Urine Ketones (Negative) Urine Blood (Negative) Urine Nitrite (Negative) Urine Bilirubin (Negative) Urine Urobilinogen (Negative) Ur Leukocyte Esterase (Negative) Urine WBC (Auto) (0-5) /hpf Urine RBC (Auto) (0-2) /hpf U Hyaline Cast (Auto) (0-2) /lpf U Epithel Cells (Auto) (0-2) /hpf Urine Bacteria (Auto) (None Seen) Calcium Oxalate Crystal (None Prsent) Hyaline Casts (None Presnt) /lpf Urine Comment SARS-CoV-2 (PCR) (Negative) Influenza Type A (PCR) (Neg) Influenza Type B (PCR) (Neg) RSV (RT-PCR) (Neg) 01/27/25 01/27/25 01/27/25 Range/Units 22:35 20:15 19:32 WBC (4.8-10.8) K/ul RBC (4.20-5.40) M/uL Hgb (12.0-16.0) g/dl Hct (37.0-47.0) % MCV (80.0-100.0) fL MCH (25.0-34.0) pg MCHC (32.0-36.0) g/dL RDW Std Deviation (36.4-46.3) fL RDW Coeff of Oswaldo (11.5-14.5) % Plt Count (130-400) K/uL MPV (9.4-12.4) fL Immature Gran % (Auto) % Neut % (Auto) % Lymph % (Auto) % Maverick % (Auto) % Eos % (Auto) % Baso % (Auto) % Neut # (Auto) (1.40-6.50) K/uL Lymph # (Auto) (1.20-3.40) K/uL [place] # (Auto) (0.11-0.59) K/uL Eos # (Auto) (0.00-0.50) K/uL Baso # (Auto) (0.00-0.20) K/uL Immature Gran # (Auto) (0.01-0.20) K/uL Sodium (136-145) mmol/L Potassium (3.5-5.1) mmol/L Chloride (98-107) mmol/L Carbon Dioxide (21-32) mmol/L Anion Gap (3-11) BUN (6-23) mg/dl Creatinine (0.6-1.2) mg/dl Est Cr Clr Drug Dosing ml/min eGFR BUN/Creatinine Ratio (10-20) Glucose (70-99(Fasting)) mg/dl POC Glucose 114 H (70-99) mg/dl Estimat Average Glucose mg/dl Hemoglobin A1c (4.5-5.6) % Calcium (8.6-10.3) mg/dl Magnesium (1.7-2.4) mg/dl Total Bilirubin (0.2-1.0) mg/dl AST (13-39) U/L ALT (7-52) U/L Alkaline Phosphatase (34-104) U/L Total Creatine Kinase (26-192) U/L Troponin I High Sens (0-14) pg/ml Total Protein (6.0-8.3) gm/dl Albumin (3.4-5.0) gm/dl Globulin (2.5-4.0) gm/dl Albumin/Globulin Ratio (0.9-2) Procalcitonin (0-0.5) ng/ml TSH (0.300-4.500) uIu/ml Free T4 (0.61-1.60) ng/dl Urine Color Yellow Urine Appearance Clear (Clear) Urine pH 5.5 (4.5-7.5) Ur Specific [place] 1.022 (1.000-1.030) Urine Protein Negative (Negative) Urine Glucose (UA) Negative (Negative) Urine Ketones Negative (Negative) Urine Blood Negative (Negative) Urine Nitrite Negative (Negative) Urine Bilirubin Negative (Negative) Urine Urobilinogen Negative (Negative) Ur Leukocyte Esterase Trace H (Negative) Urine WBC (Auto) 0-5 (0-5) /hpf Urine RBC (Auto) 0-2 (0-2) /hpf U Hyaline Cast (Auto) 11-20 H (0-2) /lpf U Epithel Cells (Auto) 0-2 (0-2) /hpf Urine Bacteria (Auto) None Seen (None Seen) Calcium Oxalate Crystal Present A (None Prsent) Hyaline Casts Present A (None Presnt) /lpf Urine Comment SARS-CoV-2 (PCR) NEGATIVE (Negative) Influenza Type A (PCR) Negative (Neg) Influenza Type B (PCR) Negative (Neg) RSV (RT-PCR) Negative (Neg) Medications Administered Current Inpatient Medications Acetaminophen (Acetaminophen 325 Mg Tab) 650 mg PO Q4H PRN PRN Reason: Pain or Fever Stop: 02/27/25 04:26 Bisacodyl (Bisacodyl 10 Mg Supp) 10 mg [place] 0800 ONE Stop: 01/28/25 08:01 Brimonidine Tartrate (Brimonidine Tartrate 0.2% 5ml) 1 drops OPL BID DELFINO Stop: 02/27/25 08:59 Buprenorphine HCl (Buprenorphine 5 Mcg/Hr Tdsy) 1 patch TD Q7D@0900 DELFINO Stop: 02/28/25 08:59 Colestipol HCl (Colestipol Hcl 1 Gm Tab) 1 gm PO BID@1000,2200 DELFINO Stop: 02/27/25 09:59 Dextrose (Dextrose 50% 50 Ml Syringe) 25 - 50 ml IV UD PRN; Protocol PRN Reason: Hypoglycemia Protocol Stop: 02/27/25 04:26 Furosemide (Furosemide 20 Mg Tab) 20 mg PO DAILY DELFINO Stop: 02/27/25 08:59 Gabapentin (Gabapentin 100 Mg Cap) 200 mg PO TID DELFINO Stop: 02/27/25 08:59 Glucagon (Glucagon For Inj 1 Mg Vial) 1 mg SQ UD PRN; Protocol PRN Reason: Hypoglycemia Protocol Stop: 02/27/25 04:26 Glucose (Glucose 40% Gel 15 Gm Tube) 15 - 30 gm PO UD PRN; Protocol PRN Reason: Hypoglycemia Protocol Stop: 02/27/25 04:26 Glucose (Glucose 10 Tab/Tube) 4 - 8 tab PO UD PRN; Protocol PRN Reason: Hypoglycemia Protocol Stop: 02/27/25 04:26 Heparin Sodium (Porcine) (Heparin Sod 5,000 Unit/0.5 Ml Vial) 5,000 units SQ Q8 DELFINO Stop: 02/27/25 05:59 Last Admin: 01/28/25 05:21 Dose: 5,000 units Lactated Ringer's (Lr) 1,000 mls @ 80 mls/hr IV .[id number] DELFINO Stop: 01/29/25 05:26 Last Admin: 01/28/25 05:16 Dose: 80 mls/hr Insulin Aspart (Insulin Aspart Per Unit Charge) 0 units SC ACHS DELFINO Stop: 02/27/25 07:29 Lactulose (Lactulose Syrup 20 Gm/30 Ml Udc) 30 gm PO 0800 ONE Stop: 01/28/25 08:01 Latanoprost (Latanoprost 0.005% Op Soln 2.5 Ml Btl) 1 drops OPB HS DELFINO Stop: 02/27/25 20:59 Levothyroxine Sodium (Levothyroxine Sodium 88 Mcg Tablet) 88 mcg PO DAILYBB DELFINO Stop: 02/27/25 06:29 Last Admin: 01/28/25 05:21 Dose: 88 mcg Lorazepam (Lorazepam 0.5 Mg Tab) 0.5 mg PO DAILY DELFINO Stop: 02/27/25 08:59 Miscellaneous (Remove & Waste Butrans Patch 1 Ea Ea) 1 each N/A Q7D@0859 DELFINO Stop: 02/28/25 08:58 Miscellaneous (Check Buprenorphine Patch) 1 each N/A QS DELFINO Stop: 02/27/25 04:26 Last Admin: 01/28/25 05:16 Dose: 1 each Miscellaneous (Carbohydrates For Hypoglycemia ) 15 - 30 gm PO UD PRN PRN Reason: Hypoglycemia Protocol Stop: 02/27/25 04:26 Multivitamins (Multivitamin Tab) 1 tab PO DAILY DELFINO Stop: 02/27/25 08:59 Nitroglycerin (Nitroglycerin Sl 0.4 Mg/Tab Tab) 0.4 mg SL Q5M PRN PRN Reason: Chest Pain Stop: 02/27/25 04:26 Oxybutynin Chloride (Oxybutynin Chloride Xl 5 Mg Tabcr) 10 mg PO DAILY DELFINO Stop: 02/27/25 08:59 Oxycodone HCl (Oxycodone Hcl Ir 5 Mg Tab (Immediate Release)) 5 mg PO Q4H PRN PRN Reason: pain Stop: 02/11/25 04:26 Pantoprazole Sodium (Pantoprazole 40 Mg Tab) 40 mg PO DAILY DELFINO Stop: 02/27/25 08:59 Polyethylene Glycol (Polyethylene (Miralax) 17 Gm Pack) 17 gm PO DAILY PRN PRN Reason: Constipation Stop: 02/27/25 04:26 Potassium Chloride (Potassium Chloride Crtab 20 Meq Tabcr) 20 meq PO BID DELFINO Stop: 02/27/25 08:59 Sennosides (Senna 8.6 Mg Tab) 8.6 mg PO BID DELFINO Stop: 02/27/25 08:59 Trazodone HCl (Trazodone Hcl 50 Mg Tab) 50 mg PO HS DELFINO Stop: 02/27/25 20:59
[2025-01-28] MEDS: POLYETHYLENE (MIRALAX) 17 GM PACK PO PRN (09:14)
[2025-01-28] MEDS: POTASSIUM CHLORIDE CRTAB 20 MEQ TABCR PO SCH (09:14)
[2025-01-28] MEDS: LORazepam 0.5 MG TAB PO SCH (09:14)
[2025-01-28] MEDS: LACTULOSE SYRUP 20 GM/30 ML UDC PO ONE (09:15)
[2025-01-28] MEDS: SENNA 8.6 MG TAB PO SCH (09:15)
[2025-01-28] MEDS: GABAPENTIN 100 MG CAP PO SCH (09:16)
[2025-01-28] MEDS: OXYBUTYNIN CHLORIDE XL 5 MG TABCR PO SCH (09:17)
[2025-01-28] MEDS: MULTIVITAMIN TAB PO SCH (09:17)
[2025-01-28] MEDS: FUROSEMIDE 20 MG TAB PO SCH (09:17)
[2025-01-28] MEDS: COLESTIPOL HCL 1 GM TAB PO SCH (09:17)
[2025-01-28] MEDS: BRIMONIDINE TARTRATE 0.2% 5ML OPL SCH (09:18)
[2025-01-28] MEDS: INSULIN ASPART PER UNIT CHARGE SC SCH (09:19)
--- NOTE | 2025-01-28 11:33 | Ultrasound Report ---
BILATERAL LOWER EXTREMITY VENOUS DOPPLER HISTORY: b/l lower ext edrema. dvt? COMPARISON STUDY: None FINDINGS: No evidence of DVT seen at the lower extremities. IMPRESSION: No DVT seen. ACT 112: Negative or not required by law. Electronically signed by: Jonatan Ocampo M.D. 01/28/2025 11:32 AM
[2025-01-28] MEDS: LATANOPROST 0.005% OP SOLN 2.5 ML BTL OPB SCH (21:19)
[2025-01-28] MEDS: SODIUM CHLORIDE 0.9% 500 ML IV ONE (22:45)
[2025-01-29 07:04] LABS: Hematocrit (blood only) 28.7 % (37.0-47.0); Hemoglobin 9.0 g/dl (12.0-16.0); Mean Corpuscular Hemoglobin 34.1 pg (25.0-34.0); Mean Corpuscular Volume 108.7 fL (80.0-100.0); Platelet Count 204 K/uL (130-400); RDW Standard Deviation 58.0 fL (36.4-46.3); Red Blood Count 2.64 M/uL (4.20-5.40); White Blood Count 5.58 K/ul (4.8-10.8)
[2025-01-29 07:25] LABS: Anion Gap 3.0 (3-11); Blood Urea Nitrogen 11.0 mg/dl (6-23); Calcium 8.4 mg/dl (8.6-10.3); Carbon Dioxide 29.0 mmol/L (21-32); Chloride 108.0 mmol/L (98-107); Creatinine Clr Calc Pharmacy 105.2 ml/min; Glucose 88.0 mg/dl (70-99(Fasting)); Magnesium 1.7 mg/dl (1.7-2.4); Potassium 4.3 mmol/L (3.5-5.1); Sodium 140.0 mmol/L (136-145)
[2025-01-29] MEDS ORDERED: LACTULOSE SYRUP 20 GM/30 ML UDC PO ONE (08:00)
[2025-01-29] MEDS: BUPRENORPHINE 5 MCG/HR TDSY TD SCH (09:13)
[2025-01-29] MEDS: REMOVE & WASTE BUTRANS PATCH 1 EA EA SCH (09:14)
--- NOTE | 2025-01-29 10:15 | Hospitalist Progress Note ---
Date of Service January 29, 2025 Assessment & Plan (1) AMS (altered mental status): Plan: 89-year-old female who is currently at [facility] with past medical history significant for type 2 diabetes, history of breast cancer, macular degeneration, hypothyroidism, GERD, chronic pain, was brought in because of confusion. Seems patient is very fatigued today. And was difficult to awaken. [facility] noted low blood pressure today. Per EMS her blood pressure was okay. Blood sugars were okay. Patient is also dealing with constipation. And patient was brought to the hospital. Patient says she has dry mouth. Could tell her name. Could tell that she is in the hospital. Could tell current month. But thinks it is 2023. She could not remember why she was brought here today. States she is dealing with constipation and taking MiraLAX. Patient states she had a bowel movement yesterday. She had a headache earlier that resolved. Vision is okay. Denies runny nose or sore throat. Denies cough. Denies chest pain or shortness of breath. Denies abdominal pain. Denies nausea. States micturating okay. States she has weakness in the left side. Patient states that she is nonambulatory. Patient states she needs help transferring to the wheelchair. Patient states she did not eat anything today. Patient seems to have chronic swelling of the legs. She has chronic pain issues and follows with pain management and uses Butrans patch. Patient also seem to have a skin tear left upper arm from transferring toilet earlier this week and was bandaged at the facility. Tried to call the daughter and not able to reach her currently. Altered mental status - seems improved, however does not remember much of yesterday - tried to contact family and prison facility but so far could not confirm pt's baseline Seems fatigued, sleepy and low blood pressure at prison Currently seems to be improved Blood pressure somewhat on lower side UA is ok COVID, flu, RSV negative CT head no acute findings Chest x-ray no acute findings CT abdomen pelvis shows constipation but no acute findings Possible dehydration placed on gentle fluids on admission Will monitor in the hospital 01/28 Currently pt seems improved, she is awake, alert, able to answer appropriately 01/29 She is awake, pleasant and answering appropriately but not able to tell me much of yesterday BP on lower side and has very minimal po intake, will try to work on po intake/ boost and discuss further w/ family Constipation Stool softeners and if no improvement will do enema Type 2 diabetes Hold Januvia Sliding scale Will monitor Lower extremity edema On Lasix Dopplers - negative for UTI Echo from January 2024 shows EF of 50 to 55% Chronic pain Continue her home pain medications Hypothyroidism On Synthyroid TSH is 12 but free T4 is 0.7 Needs follow-up Macular degeneration Continue eyedrops Left Upper arm wound wound care DVT prophylaxis: Heparin subcu Disposition: Med/telemetry CODE STATUS DNR/DNI per POLST form. Confirmed with the pt. Trying to reach the family as well. Admission and Anticipated Discharge Date Admission Date: January 27, 2025 Subjective Pt seen in follow up of generalized weakness, BP on lower side Also found to be constipated Currently lying down in bed in NAD, she is awake, alert, able to answer simple questions appropriately. She does not remember much of yesterday Yesterday , we discussed how she was prior to admission - she was more sleepy then- and said - "What else am I gonna do? I may as well sleep". Then I told her she was reportedly confused, she answered "I guess I was a little confused" Denies any fever, chills, chest pain, shortness of breath, abd. pain, n/v Pt says she she needs to sit up straight to eat or drink, discussed w/ RN in detail today and yesterday Pt also reports difficulty moving left arm - chronic, and difficulty moving left leg - also chronic per pt Overnight BP on lower side and received IVF. Today only has small bite of egg for breakfast. Will try boost and banana. Discussed her code status and POLST - she does confirm DNR/DNI. I told her I tried to call her daughter couple of times but her voicemail is full. She smiled and said she told her to clear her voicemail in the past. I contacted her prison facility but did not get more information. I left a voicemail on her grandson's phone. Review of Systems Review of Systems: All systems reviewed & are unremarkable except as noted in Subjective Physical Exam Physical Exam: General- Not in distress. Head- atraumatic Eyes- PERRL. Neck- supple Lungs- clear to auscultation no wheezing or crackles Heart- regular rhythm; no murmur, no gallop. Abdomen- normal bowel sounds, soft, nontender, no distension Extremities- b/l lower extremity edema with some chronic skin changes seen, LLE weakness and LUE weakness - chronic per pt Neuro- awake, and alert, pleasant and answers appropriately ; PERRL, no facial palsy; no dysarthria; left sided weakness Results & Data Results & Data Vital Signs (Past 12 Hours) Vital Signs Temp Pulse Resp BP Pulse Ox O2 Del Method 01/29/25 07:27 67 16 93/62 L 95 Room Air 01/29/25 03:08 98/60 L 93 Room Air 01/28/25 23:23 98/60 L 01/28/25 22:32 36.8 C 63 14 86/48 L 95 Room Air Laboratory Results 01/29/25 01/29/25 01/28/25 Range/Units 07:26 05:43 21:09 WBC 5.58 (4.8-10.8) K/ul RBC 2.64 L (4.20-5.40) M/uL Hgb 9.0 L (12.0-16.0) g/dl Hct 28.7 L (37.0-47.0) % MCV 108.7 H (80.0-100.0) fL MCH 34.1 H (25.0-34.0) pg MCHC 31.4 L (32.0-36.0) g/dL RDW Std Deviation 58.0 H (36.4-46.3) fL RDW Coeff of Oswaldo 14.7 H (11.5-14.5) % Plt Count 204 (130-400) K/uL MPV 10.9 (9.4-12.4) fL Sodium 140 (136-145) mmol/L Potassium 4.3 (3.5-5.1) mmol/L Chloride 108 H (98-107) mmol/L Carbon Dioxide 29 (21-32) mmol/L Anion Gap 3 (3-11) BUN 11 (6-23) mg/dl Creatinine 0.30 L (0.6-1.2) mg/dl Est Cr Clr Drug Dosing 105.2 ml/min eGFR 101.33 BUN/Creatinine Ratio 36.7 H (10-20) Glucose 88 (70-99(Fasting)) mg/dl POC Glucose 108 H 123 H (70-99) mg/dl Calcium 8.4 L (8.6-10.3) mg/dl Phosphorus 3.4 (2.5-4.9) mg/dl Magnesium 1.7 (1.7-2.4) mg/dl 01/28/25 01/28/25 Range/Units 16:10 11:33 WBC (4.8-10.8) K/ul RBC (4.20-5.40) M/uL Hgb (12.0-16.0) g/dl Hct (37.0-47.0) % MCV (80.0-100.0) fL MCH (25.0-34.0) pg MCHC (32.0-36.0) g/dL RDW Std Deviation (36.4-46.3) fL RDW Coeff of Oswaldo (11.5-14.5) % Plt Count (130-400) K/uL MPV (9.4-12.4) fL Sodium (136-145) mmol/L Potassium (3.5-5.1) mmol/L Chloride (98-107) mmol/L Carbon Dioxide (21-32) mmol/L Anion Gap (3-11) BUN (6-23) mg/dl Creatinine (0.6-1.2) mg/dl Est Cr Clr Drug Dosing ml/min eGFR BUN/Creatinine Ratio (10-20) Glucose (70-99(Fasting)) mg/dl POC Glucose 104 H 84 (70-99) mg/dl Calcium (8.6-10.3) mg/dl Phosphorus (2.5-4.9) mg/dl Magnesium (1.7-2.4) mg/dl Medications Administered Current Inpatient Medications Acetaminophen (Acetaminophen 325 Mg Tab) 650 mg PO Q4H PRN PRN Reason: Pain or Fever Stop: 02/27/25 04:26 Brimonidine Tartrate (Brimonidine Tartrate 0.2% 5ml) 1 drops OPL BID [facility] Stop: 02/27/25 08:59 Last Admin: 01/29/25 09:16 Dose: 1 drops Buprenorphine HCl (Buprenorphine 5 Mcg/Hr Tdsy) 1 patch TD Q7D@0900 [facility] Stop: 02/28/25 08:59 Last Admin: 01/29/25 09:13 Dose: 1 patch Colestipol HCl (Colestipol Hcl 1 Gm Tab) 1 gm PO BID@1000,2200 [facility] Stop: 02/27/25 09:59 Last Admin: 01/29/25 09:17 Dose: 1 gm Dextrose (Dextrose 50% 50 Ml Syringe) 25 - 50 ml IV UD PRN; Protocol PRN Reason: Hypoglycemia Protocol Stop: 02/27/25 04:26 Furosemide (Furosemide 20 Mg Tab) 20 mg PO DAILY [facility] Stop: 02/27/25 08:59 Last Admin: 01/28/25 09:17 Dose: 20 mg Gabapentin (Gabapentin 100 Mg Cap) 200 mg PO TID [facility] Stop: 02/27/25 08:59 Last Admin: 01/28/25 21:25 Dose: 200 mg Glucagon (Glucagon For Inj 1 Mg Vial) 1 mg SQ UD PRN; Protocol PRN Reason: Hypoglycemia Protocol Stop: 02/27/25 04:26 Glucose (Glucose 40% Gel 15 Gm Tube) 15 - 30 gm PO UD PRN; Protocol PRN Reason: Hypoglycemia Protocol Stop: 02/27/25 04:26 Glucose (Glucose 10 Tab/Tube) 4 - 8 tab PO UD PRN; Protocol PRN Reason: Hypoglycemia Protocol Stop: 02/27/25 04:26 Heparin Sodium (Porcine) (Heparin Sod 5,000 Unit/0.5 Ml Vial) 5,000 units SQ Q8 [facility] Stop: 02/27/25 05:59 Last Admin: 01/29/25 05:54 Dose: 5,000 units Insulin Aspart (Insulin Aspart Per Unit Charge) 0 units SC ACHS [facility] Stop: 02/27/25 07:29 Last Admin: 01/29/25 08:19 Dose: Not Given Latanoprost (Latanoprost 0.005% Op Soln 2.5 Ml Btl) 1 drops OPB HS [facility] Stop: 02/27/25 20:59 Last Admin: 01/28/25 21:19 Dose: 1 drops Levothyroxine Sodium (Levothyroxine Sodium 88 Mcg Tablet) 88 mcg PO DAILYBB [facility] Stop: 02/27/25 06:29 Last Admin: 01/29/25 05:52 Dose: 88 mcg Lorazepam (Lorazepam 0.5 Mg Tab) 0.5 mg PO DAILY [facility] Stop: 02/27/25 08:59 Last Admin: 01/28/25 09:14 Dose: 0.5 mg Miscellaneous (Remove & Waste Butrans Patch 1 Ea Ea) 1 each N/A Q7D@0859 [facility] Stop: 02/28/25 08:58 Last Admin: 01/29/25 09:14 Dose: 1 each Miscellaneous (Check Buprenorphine Patch) 1 each N/A QS [facility] Stop: 02/27/25 04:26 Last Admin: 01/29/25 09:13 Dose: 1 each Miscellaneous (Carbohydrates For Hypoglycemia ) 15 - 30 gm PO UD PRN PRN Reason: Hypoglycemia Protocol Stop: 02/27/25 04:26 Multivitamins (Multivitamin Tab) 1 tab PO DAILY [facility] Stop: 02/27/25 08:59 Last Admin: 01/29/25 09:17 Dose: 1 tab Nitroglycerin (Nitroglycerin Sl 0.4 Mg/Tab Tab) 0.4 mg SL Q5M PRN PRN Reason: Chest Pain Stop: 02/27/25 04:26 Oxybutynin Chloride (Oxybutynin Chloride Xl 5 Mg Tabcr) 10 mg PO DAILY [facility] Stop: 02/27/25 08:59 Last Admin: 01/29/25 09:18 Dose: 10 mg Oxycodone HCl (Oxycodone Hcl Ir 5 Mg Tab (Immediate Release)) 5 mg PO Q4H PRN PRN Reason: pain Stop: 02/11/25 04:26 Last Admin: 01/28/25 21:19 Dose: 5 mg Pantoprazole Sodium (Pantoprazole 40 Mg Tab) 40 mg PO DAILY [facility] Stop: 02/27/25 08:59 Last Admin: 01/29/25 09:18 Dose: 40 mg Polyethylene Glycol (Polyethylene (Miralax) 17 Gm Pack) 17 gm PO DAILY PRN PRN Reason: Constipation Stop: 02/27/25 04:26 Last Admin: 01/28/25 09:14 Dose: 17 gm Potassium Chloride (Potassium Chloride Crtab 20 Meq Tabcr) 20 meq PO BID [facility] Stop: 02/27/25 08:59 Last Admin: 01/29/25 09:17 Dose: 20 meq Sennosides (Senna 8.6 Mg Tab) 8.6 mg PO BID [facility] Stop: 02/27/25 08:59 Last Admin: 01/29/25 09:17 Dose: 8.6 mg Trazodone HCl (Trazodone Hcl 50 Mg Tab) 50 mg PO HS [facility] Stop: 02/27/25 20:59 Last Admin: 01/28/25 22:20 Dose: Not Given
[2025-01-29] MEDS: ALBUMIN 25% 25 GM/100 ML VIAL IV ONE (11:06)
[2025-01-29] MEDS: PANTOprazole 40 MG/10 ML SYR IV SCH (11:52)
--- NOTE | 2025-01-29 15:35 | Electrocardiogram Report ---
Test Reason : Blood Pressure : */* mmHG Vent. Rate : 68 BPM Atrial Rate : 67 BPM P-R Int : 122 ms QRS Dur : 104 ms QT Int : 440 ms P-R-T Axes : 26 -53 73 degrees QTcB Int : 467 ms Sinus rhythm with pvc Left anterior fascicular block Minimal voltage criteria for LVH, may be normal variant ( Willam product ) Abnormal ECG When compared with ECG of 26-Oct-2024 12:51, No significant change Confirmed by David Santiago [id number]) on 01/29/2025 3:34:36 PM Referred By: REFERRED SELF Confirmed By: David Santiago
[2025-01-29] MEDS: ACETAMINOPHEN 325 MG TAB PO PRN (20:54)
[2025-01-30 06:47] LABS: Hematocrit (blood only) 29.3 % (37.0-47.0); Hemoglobin 9.4 g/dl (12.0-16.0); Mean Corpuscular Hemoglobin 34.7 pg (25.0-34.0); Mean Corpuscular Volume 108.1 fL (80.0-100.0); Platelet Count 199 K/uL (130-400); RDW Standard Deviation 56.7 fL (36.4-46.3); Red Blood Count 2.71 M/uL (4.20-5.40); White Blood Count 6.71 K/ul (4.8-10.8)
[2025-01-30 07:01] LABS: Anion Gap 4.0 (3-11); Calcium 8.6 mg/dl (8.6-10.3); Carbon Dioxide 28.0 mmol/L (21-32); Chloride 107.0 mmol/L (98-107); Magnesium 1.8 mg/dl (1.7-2.4); Potassium 3.8 mmol/L (3.5-5.1); Sodium 139.0 mmol/L (136-145)
[2025-01-30 07:07] LABS: Blood Urea Nitrogen 10.0 mg/dl (6-23); Creatinine Clr Calc Pharmacy 143.4 ml/min; Glucose 127.0 mg/dl (70-99(Fasting))
--- NOTE | 2025-01-30 15:21 | Hospitalist Progress Note ---
Date of Service January 30, 2025 Assessment & Plan (1) AMS (altered mental status): Plan: 89-year-old female who is currently at [facility] with past medical history significant for type 2 diabetes, history of breast cancer, macular degeneration, hypothyroidism, GERD, chronic pain, was brought in because of confusion. Seems patient is very fatigued today. And was difficult to awaken. assisted noted low blood pressure today. Per EMS her blood pressure was okay. Blood sugars were okay. Patient is also dealing with constipation. And patient was brought to the hospital. Patient says she has dry mouth. Could tell her name. Could tell that she is in the hospital. Could tell current month. But thinks it is 2023. She could not remember why she was brought here today. States she is dealing with constipation and taking MiraLAX. Patient states she had a bowel movement yesterday. She had a headache earlier that resolved. Vision is okay. Denies runny nose or sore throat. Denies cough. Denies chest pain or shortness of breath. Denies abdominal pain. Denies nausea. States micturating okay. States she has weakness in the left side. Patient states that she is nonambulatory. Patient states she needs help transferring to the wheelchair. Patient states she did not eat anything today. Patient seems to have chronic swelling of the legs. She has chronic pain issues and follows with pain management and uses Butrans patch. Patient also seem to have a skin tear left upper arm from transferring toilet earlier this week and was bandaged at the facility. Tried to call the daughter and not able to reach her currently. Altered mental status - improved/ resolved Seems fatigued, sleepy and low blood pressure at [facility] Currently seems to be improved Blood pressure somewhat on lower side UA is ok COVID, flu, RSV negative CT head no acute findings Chest x-ray no acute findings CT abdomen pelvis shows constipation but no acute findings Possible dehydration placed on gentle fluids on admission Will monitor in the hospital 01/28 Currently pt seems improved, she is awake, alert, able to answer appropriately 01/29 She is awake, pleasant and answering appropriately but not able to tell me much of yesterday BP on lower side and has very minimal po intake, will try to work on po intake/ boost and discuss further w/ family 01/30 BP improved. Able to discuss w/ pt's daughter - she would like to have the pt discharged on hospice (already had conversations about this with the pt in the past). CM involved, plan to DC tmrw Constipation Stool softeners and if no improvement will do enema Type 2 diabetes Hold Januvia Sliding scale Will monitor Lower extremity edema On Lasix Dopplers - negative for UTI Echo from January 2024 shows EF of 50 to 55% Chronic pain Continue her home pain medications Hypothyroidism On Synthyroid TSH is 12 but free T4 is 0.7 Needs follow-up Macular degeneration Continue eyedrops Left Upper arm wound wound care DVT prophylaxis: Heparin subcu Dispo: med/ srg - transfer orders have been done - pt still in PCU - discussed w/ RN and made her aware CODE STATUS DNR/DNI per POLST form. Confirmed with the pt. Plan to DC on hospice tmrw Admission and Anticipated Discharge Date Admission Date: January 27, 2025 Subjective Pt seen in follow up of generalized weakness, BP on lower side Also found to be constipated Currently lying down in bed in NAD, she is awake, alert, able to answer simple questions appropriately. Denies any fever, chills, chest pain, shortness of breath, abd. pain, n/v Pt says she she needs to sit up straight to eat or drink, discussed w/ RN in detail Pt also reports difficulty moving left arm - chronic, and difficulty moving left leg - also chronic per pt Discussed her code status and POLST - she does confirm DNR/DNI. Today I also discussed with pt's daughter - she would like her to be discharged on hospice - Rx for hospice and eval given to CM - plan to DC tmrw Review of Systems Review of Systems: All systems reviewed & are unremarkable except as noted in Subjective Physical Exam Physical Exam: General- Not in distress. Head- atraumatic Eyes- PERRL. Neck- supple Lungs- clear to auscultation no wheezing or crackles Heart- regular rhythm; no murmur, no gallop. Abdomen- normal bowel sounds, soft, nontender, no distension Extremities- b/l lower extremity edema with some chronic skin changes seen, LLE weakness and LUE weakness - chronic per pt Neuro- awake, and alert, pleasant and answers appropriately ; PERRL, no facial palsy; no dysarthria; left sided weakness Results & Data Results & Data Vital Signs (Past 12 Hours) Vital Signs Temp Pulse Resp BP Pulse Ox O2 Del Method 01/30/25 11:57 36.7 C 90 18 121/64 96 Room Air 01/30/25 08:02 36.9 C 70 20 120/74 90 Room Air 01/30/25 07:45 Room Air Laboratory Results 01/30/25 01/30/25 01/30/25 Range/Units 11:13 07:38 05:56 WBC 6.71 (4.8-10.8) K/ul RBC 2.71 L (4.20-5.40) M/uL Hgb 9.4 L (12.0-16.0) g/dl Hct 29.3 L (37.0-47.0) % MCV 108.1 H (80.0-100.0) fL MCH 34.7 H (25.0-34.0) pg MCHC 32.1 (32.0-36.0) g/dL RDW Std Deviation 56.7 H (36.4-46.3) fL RDW Coeff of Oswaldo 14.4 (11.5-14.5) % Plt Count 199 (130-400) K/uL MPV 10.9 (9.4-12.4) fL Sodium 139 (136-145) mmol/L Potassium 3.8 (3.5-5.1) mmol/L Chloride 107 (98-107) mmol/L Carbon Dioxide 28 (21-32) mmol/L Anion Gap 4 (3-11) BUN 10 (6-23) mg/dl Creatinine 0.22 L (0.6-1.2) mg/dl Est Cr Clr Drug Dosing 143.4 ml/min eGFR 109.20 BUN/Creatinine Ratio 45.5 H (10-20) Glucose 127 H (70-99(Fasting)) mg/dl POC Glucose 191 H 118 H (70-99) mg/dl Calcium 8.6 (8.6-10.3) mg/dl Phosphorus 3.0 (2.5-4.9) mg/dl Magnesium 1.8 (1.7-2.4) mg/dl 01/29/25 Range/Units 16:11 WBC (4.8-10.8) K/ul RBC (4.20-5.40) M/uL Hgb (12.0-16.0) g/dl Hct (37.0-47.0) % MCV (80.0-100.0) fL MCH (25.0-34.0) pg MCHC (32.0-36.0) g/dL RDW Std Deviation (36.4-46.3) fL RDW Coeff of Oswaldo (11.5-14.5) % Plt Count (130-400) K/uL MPV (9.4-12.4) fL Sodium (136-145) mmol/L Potassium (3.5-5.1) mmol/L Chloride (98-107) mmol/L Carbon Dioxide (21-32) mmol/L Anion Gap (3-11) BUN (6-23) mg/dl Creatinine (0.6-1.2) mg/dl Est Cr Clr Drug Dosing ml/min eGFR BUN/Creatinine Ratio (10-20) Glucose (70-99(Fasting)) mg/dl POC Glucose 101 H (70-99) mg/dl Calcium (8.6-10.3) mg/dl Phosphorus (2.5-4.9) mg/dl Magnesium (1.7-2.4) mg/dl Medications Administered Current Inpatient Medications Acetaminophen (Acetaminophen 325 Mg Tab) 650 mg PO Q4H PRN PRN Reason: Pain or Fever Stop: 02/27/25 04:26 Last Admin: 01/29/25 20:54 Dose: 650 mg Brimonidine Tartrate (Brimonidine Tartrate 0.2% 5ml) 1 drops OPL BID [facility] Stop: 02/27/25 08:59 Last Admin: 01/30/25 08:28 Dose: 1 drops Buprenorphine HCl (Buprenorphine 5 Mcg/Hr Tdsy) 1 patch TD Q7D@0900 [facility] Stop: 02/28/25 08:59 Last Admin: 01/29/25 09:13 Dose: 1 patch Colestipol HCl (Colestipol Hcl 1 Gm Tab) 1 gm PO BID@1000,2200 [facility] Stop: 02/27/25 09:59 Last Admin: 01/30/25 10:37 Dose: 1 gm Dextrose (Dextrose 50% 50 Ml Syringe) 25 - 50 ml IV UD PRN; Protocol PRN Reason: Hypoglycemia Protocol Stop: 02/27/25 04:26 Furosemide (Furosemide 20 Mg Tab) 20 mg PO DAILY [facility] Stop: 02/27/25 08:59 Last Admin: 01/28/25 09:17 Dose: 20 mg Gabapentin (Gabapentin 100 Mg Cap) 200 mg PO TID [facility] Stop: 02/27/25 08:59 Last Admin: 01/28/25 21:25 Dose: 200 mg Glucagon (Glucagon For Inj 1 Mg Vial) 1 mg SQ UD PRN; Protocol PRN Reason: Hypoglycemia Protocol Stop: 02/27/25 04:26 Glucose (Glucose 40% Gel 15 Gm Tube) 15 - 30 gm PO UD PRN; Protocol PRN Reason: Hypoglycemia Protocol Stop: 02/27/25 04:26 Glucose (Glucose 10 Tab/Tube) 4 - 8 tab PO UD PRN; Protocol PRN Reason: Hypoglycemia Protocol Stop: 02/27/25 04:26 Heparin Sodium (Porcine) (Heparin Sod 5,000 Unit/0.5 Ml Vial) 5,000 units SQ Q8 [facility] Stop: 02/27/25 05:59 Last Admin: 01/30/25 07:10 Dose: 5,000 units Pantoprazole Sodium (Protonix) 40 mg in 10 mls @ 5 mls/min IV BID [facility] Stop: 02/28/25 10:59 Last Admin: 01/30/25 08:23 Dose: 5 mls/min Insulin Aspart (Insulin Aspart Per Unit Charge) 0 units SC ACHS [facility] Stop: 02/27/25 07:29 Last Admin: 01/30/25 12:22 Dose: 3 units Latanoprost (Latanoprost 0.005% Op Soln 2.5 Ml Btl) 1 drops OPB HS [facility] Stop: 02/27/25 20:59 Last Admin: 01/29/25 20:52 Dose: 1 drops Levothyroxine Sodium (Levothyroxine Sodium 88 Mcg Tablet) 88 mcg PO DAILYBB [facility] Stop: 02/27/25 06:29 Last Admin: 01/30/25 07:10 Dose: 88 mcg Lorazepam (Lorazepam 0.5 Mg Tab) 0.5 mg PO DAILY [facility] Stop: 02/27/25 08:59 Last Admin: 01/28/25 09:14 Dose: 0.5 mg Miscellaneous (Remove & Waste Butrans Patch 1 Ea Ea) 1 each N/A Q7D@0859 [facility] Stop: 02/28/25 08:58 Last Admin: 01/29/25 09:14 Dose: 1 each Miscellaneous (Check Buprenorphine Patch) 1 each N/A QS [facility] Stop: 02/27/25 04:26 Last Admin: 01/30/25 08:56 Dose: 1 each Miscellaneous (Carbohydrates For Hypoglycemia ) 15 - 30 gm PO UD PRN PRN Reason: Hypoglycemia Protocol Stop: 02/27/25 04:26 Multivitamins (Multivitamin Tab) 1 tab PO DAILY [facility] Stop: 02/27/25 08:59 Last Admin: 01/30/25 08:22 Dose: 1 tab Nitroglycerin (Nitroglycerin Sl 0.4 Mg/Tab Tab) 0.4 mg SL Q5M PRN PRN Reason: Chest Pain Stop: 02/27/25 04:26 Oxybutynin Chloride (Oxybutynin Chloride Xl 5 Mg Tabcr) 10 mg PO DAILY [facility] Stop: 02/27/25 08:59 Last Admin: 01/30/25 08:23 Dose: 10 mg Oxycodone HCl (Oxycodone Hcl Ir 5 Mg Tab (Immediate Release)) 5 mg PO Q4H PRN PRN Reason: pain Stop: 02/11/25 04:26 Last Admin: 01/29/25 21:12 Dose: 5 mg Pantoprazole Sodium (Pantoprazole 40 Mg Tab) 40 mg PO DAILY [facility] Stop: 02/27/25 08:59 Last Admin: 01/29/25 09:18 Dose: 40 mg Polyethylene Glycol (Polyethylene (Miralax) 17 Gm Pack) 17 gm PO DAILY PRN PRN Reason: Constipation Stop: 02/27/25 04:26 Last Admin: 01/28/25 09:14 Dose: 17 gm Potassium Chloride (Potassium Chloride Crtab 20 Meq Tabcr) 20 meq PO BID [facility] Stop: 02/27/25 08:59 Last Admin: 01/30/25 08:27 Dose: 20 meq Sennosides (Senna 8.6 Mg Tab) 8.6 mg PO BID [facility] Stop: 02/27/25 08:59 Last Admin: 01/30/25 08:27 Dose: 8.6 mg Trazodone HCl (Trazodone Hcl 50 Mg Tab) 50 mg PO HS [facility] Stop: 02/27/25 20:59 Last Admin: 01/29/25 20:52 Dose: 50 mg
[2025-01-30] MEDS: SODIUM CHLORIDE 0.65% NA SOLN 45 ML (OCEAN) SCH (17:59)
[2025-01-30] MEDS: GLYCERIN ADULT 12 SUPP/BOX SUPP PR ONE (18:24)
[2025-01-31 08:06] VITALS: RESP 18
[2025-01-31 08:26] LABS: Hematocrit (blood only) 30.8 % (37.0-47.0); Hemoglobin 10.0 g/dl (12.0-16.0); Mean Corpuscular Hemoglobin 34.4 pg (25.0-34.0); Mean Corpuscular Volume 105.8 fL (80.0-100.0); Platelet Count 224 K/uL (130-400); RDW Standard Deviation 55.7 fL (36.4-46.3); Red Blood Count 2.91 M/uL (4.20-5.40); White Blood Count 9.90 K/ul (4.8-10.8)
[2025-01-31 08:43] LABS: Anion Gap 6.0 (3-11); Blood Urea Nitrogen 9.0 mg/dl (6-23); Calcium 8.6 mg/dl (8.6-10.3); Carbon Dioxide 28.0 mmol/L (21-32); Chloride 105.0 mmol/L (98-107); Creatinine Clr Calc Pharmacy 137.2 ml/min; Glucose 118.0 mg/dl (70-99(Fasting)); Magnesium 1.8 mg/dl (1.7-2.4); Potassium 3.5 mmol/L (3.5-5.1); Sodium 139.0 mmol/L (136-145)
--- NOTE | 2025-01-31 13:55 | Hospitalist Progress Note ---
Date of Service January 31, 2025 Assessment & Plan (1) AMS (altered mental status): Plan: 89-year-old female who is currently at [facility] with past medical history significant for type 2 diabetes, history of breast cancer, macular degeneration, hypothyroidism, GERD, chronic pain, was brought in because of confusion. Seems patient is very fatigued today. And was difficult to awaken. [facility] noted low blood pressure today. Per EMS her blood pressure was okay. Blood sugars were okay. Patient is also dealing with constipation. And patient was brought to the hospital. Patient says she has dry mouth. Could tell her name. Could tell that she is in the hospital. Could tell current month. But thinks it is 2023. She could not remember why she was brought here today. States she is dealing with constipation and taking MiraLAX. Patient states she had a bowel movement yesterday. She had a headache earlier that resolved. Vision is okay. Denies runny nose or sore throat. Denies cough. Denies chest pain or shortness of breath. Denies abdominal pain. Denies nausea. States micturating okay. States she has weakness in the left side. Patient states that she is nonambulatory. Patient states she needs help transferring to the wheelchair. Patient states she did not eat anything today. Patient seems to have chronic swelling of the legs. She has chronic pain issues and follows with pain management and uses Butrans patch. Patient also seem to have a skin tear left upper arm from transferring toilet earlier this week and was bandaged at the facility. Tried to call the daughter and not able to reach her currently. Altered mental status - improved/ resolved Seems fatigued, sleepy and [facility] Unsure if due to sedative medications/and or due to hypotension --CT head:Mild cerebral atrophy and periventricular white matter low density consistent with chronic small vessel disease and/or senescent changes. No acute large vessel infarct or intracranial hemorrhage is seen. UA not suggestive of UTI COVID, flu, RSV negative -Chest x-ray no acute findings -CT abdomen pelvis shows constipation but no acute findings Possible dehydration, received IV fluids mental status seem to be back to baseline Prior hospitalist discussed with patient's family who prefer patient to be discharged on hospice Plan to discharge home with hospice today Constipation No signs of obstruction on imaging Continue bowel regimen Type 2 diabetes Hold Januvia Sliding scale monitor blood glucose levels Lower extremity edema On Lasix venous Doppler - negative for DVT Echo from January 2024 shows EF of 50 to 55% Chronic pain Continue her home pain medications Hypothyroidism Continue levothyroxine TSH is 12 but free T4 is 0.7 Needs follow-up Macular degeneration Continue eyedrops Left Upper arm wound wound care DVT Px: Heparin SQ CODE STATUS DNI DNR Disposition Home with hospice Admission and Anticipated Discharge Date Admission Date: January 27, 2025 Subjective Patient is seen and examined at bedside Reports no new complaints Admits to have chronic dyspnea on exertion but otherwise no other complaints today Denies any chest pain, nausea, vomiting, abdominal pain Plan to be discharged home with hospice today Review of Systems Review of Systems: All systems reviewed & are unremarkable except as noted in Subjective Physical Exam Physical Exam: Physical Exam: Vitals signs as noted above General Appearance:Moderately built and nourished, no apparent distress Head: normocephalic, Atraumatic Eyes: normal inspection, EOMI Neck: supple, Trachea midline Respiratory/Chest: Normal breath sounds, CTA, No accessory muscle use Cardiovascular: S1, S2, No murmur Abdomen/GI:Soft, Non tender, Bowel sounds present Extremities/Musculoskeletal:normal inspection, B/L LE edema Neurologic/Psych:AAOX3, Left sided weakness Skin: normal color, warm Results & Data Results & Data Vital Signs (Past 12 Hours) Vital Signs Temp Pulse Resp BP Pulse Ox O2 Del Method 01/31/25 08:30 Room Air 01/31/25 07:08 36.7 C 82 18 137/66 94 Room Air Laboratory Results Short CBC 01/31/25 Range/Units 07:43 WBC 9.90 (4.8-10.8) K/ul Hgb 10.0 L (12.0-16.0) g/dl Hct 30.8 L (37.0-47.0) % Plt Count 224 (130-400) K/uL BMP 01/31/25 07:43 Sodium 139 Potassium 3.5 Chloride 105 Carbon Dioxide 28 BUN 9 Creatinine 0.23 L Glucose 118 H Calcium 8.6
--- NOTE | 2025-01-31 14:02 | Discharge Summary ---
Date of Service January 31, 2025 Admission HPI Per Admitting Provider 89-year-old female who is currently at [facility] with past medical history significant for type 2 diabetes, history of breast cancer, macular degeneration, hypothyroidism, GERD, chronic pain, was brought in because of confusion. Seems patient is very fatigued today. And was difficult to awaken. [facility] noted low blood pressure today. Per EMS her blood pressure was okay. Blood sugars were okay. Patient is also dealing with constipation. And patient was brought to the hospital. Patient says she has dry mouth. Could tell her name. Could tell that she is in the hospital. Co donald tell current month. But thinks it is 2023. She could not remember why she was brought here today. States she is dealing with constipation and taking MiraLAX. Patient states she had a bowel movement yesterday. She had a headache earlier that resolved. Vision is okay. Denies runny nose or sore throat. Denies cough. Denies chest pain or shortness of breath. Denies abdominal pain. Denies nausea. States micturating okay. States she has weakness in the left side. Patient states that she is nonambulatory. Patient states she needs help transferring to the wheelchair. Patient states she did not eat anything today. Patient seems to have chronic swelling of the legs. She has chronic pain issues and follows with pain management and uses Butrans patch. Patient also seem to have a skin tear left upper arm from transferring toilet earlier this week and was bandaged at the facility. Tried to call the daughter and not able to reach her currently. Past med history. As mentioned above. Past surgical history. Bilateral knee replacement. History of hysterectomy. Social history. Former smoker. No alcohol. No drug use. Family history. No family history in file. Admission Exam Per Admitting Provider General- Not in distress. Head- atraumatic Eyes- PERRL. ENT- oropharynx dry Neck- supple, no JVD. Lungs- clear to auscultation no wheezing or crackles Heart- regular rhythm; no murmur, no gallop. Abdomen- normal bowel sounds, soft, nontender, no distension Extremities- b/l lower extremity edema with some chronic skin changes seen Neuro- alert, oriented ; PERRL, no facial palsy; no dysarthria; left sided weakness Principal Diagnosis Altered mental status- improved/ resolved Likely due to sedative medications/and or hypotension Hypotension Discharge Data Allergies Allergy/AdvReac Type Severity Reaction Status Date / Time Sulfa (Sulfonamide Allergy Mild Unknown Verified 11/01/24 14:05 Antibiotics) Consultations 01/27/25 22:18 ED Decision to Admit Stat 01/30/25 09:41 Consult Behavioral Health Liaison Routine Procedures Performed Laboratory Results WBC 9.90 K/ul (4.8-10.8) 01/31/25 07:43 RBC 2.91 M/uL (4.20-5.40) L 01/31/25 07:43 Hgb 10.0 g/dl (12.0-16.0) L 01/31/25 07:43 Hct 30.8 % (37.0-47.0) L 01/31/25 07:43 MCV 105.8 fL (80.0-100.0) H 01/31/25 07:43 MCH 34.4 pg (25.0-34.0) H 01/31/25 07:43 MCHC 32.5 g/dL (32.0-36.0) 01/31/25 07:43 RDW Std Deviation 55.7 fL (36.4-46.3) H 01/31/25 07:43 RDW Coeff of Oswaldo 14.5 % (11.5-14.5) 01/31/25 07:43 Plt Count 224 K/uL (130-400) 01/31/25 07:43 MPV 10.7 fL (9.4-12.4) 01/31/25 07:43 Immature Gran % (Auto) 0.4 % 01/28/25 05:42 Neut % (Auto) 59.8 % 01/28/25 05:42 Lymph % (Auto) 31.6 % 01/28/25 05:42 [place] % (Auto) 6.3 % 01/28/25 05:42 Eos % (Auto) 1.4 % 01/28/25 05:42 Baso % (Auto) 0.5 % 01/28/25 05:42 Neut # (Auto) 4.59 K/uL (1.40-6.50) 01/28/25 05:42 Lymph # (Auto) 2.42 K/uL (1.20-3.40) 01/28/25 05:42 [place] # (Auto) 0.48 K/uL (0.11-0.59) 01/28/25 05:42 Eos # (Auto) 0.11 K/uL (0.00-0.50) 01/28/25 05:42 Baso # (Auto) 0.04 K/uL (0.00-0.20) 01/28/25 05:42 Immature Gran # (Auto) 0.03 K/uL (0.01-0.20) 01/28/25 05:42 Sodium 139 mmol/L (136-145) 01/31/25 07:43 Potassium 3.5 mmol/L (3.5-5.1) 01/31/25 07:43 Chloride 105 mmol/L (98-107) 01/31/25 07:43 Carbon Dioxide 28 mmol/L (21-32) 01/31/25 07:43 Anion Gap 6 (3-11) 01/31/25 07:43 BUN 9 mg/dl (6-23) 01/31/25 07:43 Creatinine 0.23 mg/dl (0.6-1.2) L 01/31/25 07:43 Est Cr Clr Drug Dosing 137.2 ml/min 01/31/25 07:43 eGFR 108.04 01/31/25 07:43 BUN/Creatinine Ratio 39.1 (10-20) H 01/31/25 07:43 Glucose 118 mg/dl (70-99(Fasting)) H 01/31/25 07:43 POC Glucose 168 mg/dl (70-99) H 01/31/25 11:28 Estimat Average Glucose 128 mg/dl 01/28/25 05:42 Hemoglobin A1c 6.1 % (4.5-5.6) H 01/28/25 05:42 Calcium 8.6 mg/dl (8.6-10.3) 01/31/25 07:43 Phosphorus 2.5 mg/dl (2.5-4.9) 01/31/25 07:43 Magnesium 1.8 mg/dl (1.7-2.4) 01/31/25 07:43 Total Bilirubin 0.5 mg/dl (0.2-1.0) 01/27/25 Unknown AST 14 U/L (13-39) 01/27/25 Unknown ALT 7 U/L (7-52) 01/27/25 Unknown Alkaline Phosphatase 106 U/L (34-104) H 01/27/25 Unknown Total Creatine Kinase 33 U/L (26-192) 01/27/25 Unknown Troponin I High Sens 8.4 pg/ml (0-14) 01/27/25 Unknown Total Protein 5.7 gm/dl (6.0-8.3) L 01/27/25 Unknown Albumin 3.3 gm/dl (3.4-5.0) L 01/27/25 Unknown Globulin 2.4 gm/dl (2.5-4.0) L 01/27/25 Unknown Albumin/Globulin Ratio 1.4 (0.9-2) 01/27/25 Unknown Procalcitonin 0.19 ng/ml (0-0.5) 01/27/25 Unknown TSH 12.750 uIu/ml (0.300-4.500) H 01/27/25 Unknown Free T4 0.79 ng/dl (0.61-1.60) 01/27/25 Unknown Urine Color Yellow 01/27/25 22:35 Urine Appearance Clear (Clear) 01/27/25 22:35 Urine pH 5.5 (4.5-7.5) 01/27/25 22:35 Ur Specific [place] 1.022 (1.000-1.030) 01/27/25 22:35 Urine Protein Negative (Negative) 01/27/25 22:35 Urine Glucose (UA) Negative (Negative) 01/27/25 22:35 Urine Ketones Negative (Negative) 01/27/25 22:35 Urine Blood Negative (Negative) 01/27/25 22:35 Urine Nitrite Negative (Negative) 01/27/25 22:35 Urine Bilirubin Negative (Negative) 01/27/25 22:35 Urine Urobilinogen Negative (Negative) 01/27/25 22:35 Ur Leukocyte Esterase Trace (Negative) H 01/27/25 22:35 Urine WBC (Auto) 0-5 /hpf (0-5) 01/27/25 22:35 Urine RBC (Auto) 0-2 /hpf (0-2) 01/27/25 22:35 U Hyaline Cast (Auto) 11-20 /lpf (0-2) H 01/27/25 22:35 U Epithel Cells (Auto) 0-2 /hpf (0-2) 01/27/25 22:35 Urine Bacteria (Auto) None Seen (None Seen) 01/27/25 22:35 Calcium Oxalate Crystal Present (None Prsent) A 01/27/25 22:35 Hyaline Casts Present /lpf (None Presnt) A 01/27/25 22:35 Urine Comment 01/27/25 22:35 SARS-CoV-2 (PCR) NEGATIVE (Negative) 01/27/25 20:15 Influenza Type A (PCR) Negative (Neg) 01/27/25 20:15 Influenza Type B (PCR) Negative (Neg) 01/27/25 20:15 RSV (RT-PCR) Negative (Neg) 01/27/25 20:15 Impressions Abdomen/Pelvis CT 01/27/25 19:46 Exam(s): CT ABDOMEN + PELVIS With Contrast IV Amt: 94ml EXAM: CT Abdomen and Pelvis With Intravenous Contrast CLINICAL HISTORY: Reason for exam: weakness, constipation. TECHNIQUE: Axial computed tomography images of the abdomen and pelvis with intravenous contrast. CTDI is 36.05 mGy and DLP is 1565.8 mGy-cm. Automated exposure control was utilized for the study. A dose lowering technique was utilized adhering to the principles of ALARA. CONTRAST: Patient received 94ml of IV contrast COMPARISON: No relevant prior studies available. FINDINGS: Lung bases: Unremarkable. No mass. No consolidation. ABDOMEN: Liver: Unremarkable. No mass. Gallbladder and bile ducts: Unremarkable. No calcified stones. No ductal dilation. Pancreas: Unremarkable. No mass. No ductal dilation. Spleen: Unremarkable. No splenomegaly. Adrenals: Unremarkable. No mass. Kidneys and ureters: 3.7 cm cyst in the lower pole of the right kidney. No follow-up is required. No hydronephrosis. Stomach and bowel: See below. PELVIS: Appendix: No signs of acute appendicitis. There is a large amount of stool throughout the colon measuring up to 6.3 cm in diameter suggesting constipation. No pneumoperitoneum, free fluid, or focal inflammatory process is seen involving the bowel. Bladder: Unremarkable. No mass. Reproductive: Unremarkable as visualized. ABDOMEN and PELVIS: Intraperitoneal space: The uterus is absent. No free fluid is seen in the pelvis. Bones/joints: Helh-ps-kxifrcrh degenerative changes throughout the spine. No acute fracture or destructive bone lesion is seen. There is mild chronic appearing grade 1 anterolisthesis of L4 on L5. No dislocation. Soft tissues: Unremarkable. Vasculature: The abdominal aorta is mildly calcified but nondilated. Lymph nodes: Unremarkable. No enlarged lymph nodes. IMPRESSION: No signs of acute appendicitis. There is a large amount of stool throughout the colon measuring up to 6.3 cm in diameter suggesting constipation. No pneumoperitoneum, free fluid, or focal inflammatory process is seen involving the bowel. Electronically signed by: Joel Lucero MD 01/27/25 21:36 PM Chest X-Ray 01/27/25 19:46 Exam(s): XR CXR 1 VIEW EXAM: XR Chest, 1 View CLINICAL HISTORY: Reason for exam: weakness. TECHNIQUE: Frontal view of the chest. COMPARISON: 01/04/2024 FINDINGS: Lungs: Slightly prominent interstitial markings throughout the lungs, unchanged. No acute focal infiltrate or consolidation is seen. Pleural space: Unremarkable. No pneumothorax. Heart: Unremarkable. No cardiomegaly. Mediastinum: The cardiac silhouette is upper normal in size. The mediastinum is within normal limits. Bones/joints: Narrowing of the subacromial space bilaterally suggesting chronic bilateral rotator cuff tears, unchanged. No acute fracture. Soft tissues: There are surgical clips in the left axilla, unchanged. The left breast shadow is absent. Upper abdomen: Unremarkable as visualized. No pneumoperitoneum under the diaphragm. IMPRESSION: Slightly prominent interstitial markings throughout the lungs, unchanged. No acute focal infiltrate or consolidation is seen. Electronically signed by: Joel Lucero MD 01/27/25 21:[address] 01/27/25 19:46 Exam(s): CT HEAD Without Contrast EXAM: CT Head Without Intravenous Contrast CLINICAL HISTORY: Reason for exam: weakness. TECHNIQUE: Axial computed tomography images of the head/brain without intravenous contrast. CTDI is 36.05 mGy and DLP is 1565.8 mGy-cm. Automated exposure control was utilized for the study. A dose lowering technique was utilized adhering to the principles of ALARA. COMPARISON: No relevant prior studies available. FINDINGS: Brain: Partially calcified smooth oval 1.1 x 0.6 cm extra-axial nodule adjacent to the right frontal lobe consistent with small meningioma. No mass effect upon the adjacent brain. Mild cerebral atrophy and periventricular white matter low density consistent with chronic small vessel disease and/or senescent changes. No acute large vessel infarct or intracranial hemorrhage is seen. Ventricles: Unremarkable. No ventriculomegaly. Bones/joints: Unremarkable. No acute fracture. Soft tissues: Unremarkable. Sinuses: Unremarkable as visualized. No acute sinusitis. Mastoid air cells: Unremarkable as visualized. No mastoid effusion. IMPRESSION: Mild cerebral atrophy and periventricular white matter low density consistent with chronic small vessel disease and/or senescent changes. No acute large vessel infarct or intracranial hemorrhage is seen. Electronically signed by: Joel Lucero MD 01/27/25 22:01 PM Venous Doppler Study 01/28/25 04:27 BILATERAL LOWER EXTREMITY VENOUS DOPPLER HISTORY: b/l lower ext edrema. dvt? COMPARISON STUDY: None FINDINGS: No evidence of DVT seen at the lower extremities. IMPRESSION: No DVT seen. ACT 112: Negative or not required by law. Electronically signed by: Jonatan Ocampo M.D. 01/28/2025 11:32 AM Ordered Studies 01/27/25 19:46 CT abd pelvis IV con only Stat CT head/brain wo con Stat 01/28/25 04:27 US venous doppler LE BI Routine Hospital Course (1) AMS (altered mental status): 89-year-old female who is currently at [facility] with past medical history significant for type 2 diabetes, history of breast cancer, macular degeneration, hypothyroidism, GERD, chronic pain, was brought in because of confusion. Seems patient is very fatigued today. And was difficult to awaken. [facility] noted low blood pressure today. Per EMS her blood pressure was okay. Blood sugars were okay. Patient is also dealing with constipation. And patient was brought to the hospital. Patient says she has dry mouth. Could tell her name. Could tell that she is in the hospital. Could tell current month. But thinks it is 2023. She could not remember why she was brought here today. States she is dealing with constipation and taking MiraLAX. Patient states she had a bowel movement yesterday. She had a headache earlier that resolved. Vision is okay. Denies runny nose or sore throat. Denies cough. Denies chest pain or shortness of breath. Denies abdominal pain. Denies nausea. States micturating okay. States she has weakness in the left side. Patient states that she is nonambulatory. Patient states she needs help transferring to the wheelchair. Patient states she did not eat anything today. Patient seems to have chronic swelling of the legs. She has chronic pain issues and follows with pain management and uses Butrans patch. Patient also seem to have a skin tear left upper arm from transferring toilet earlier this week and was bandaged at the facility. Tried to call the daughter and not able to reach her currently. Altered mental status - improved/ resolved Seems fatigued, sleepy and [facility] Unsure if due to sedative medications/and or due to hypotension --CT head:Mild cerebral atrophy and periventricular white matter low density consistent with chronic small vessel disease and/or senescent changes. No acute large vessel infarct or intracranial hemorrhage is seen. UA not suggestive of UTI COVID, flu, RSV negative -Chest x-ray no acute findings -CT abdomen pelvis shows constipation but no acute findings Possible dehydration, received IV fluids mental status seem to be back to baseline Prior hospitalist discussed with patient's family who prefer patient to be discharged on hospice Plan to discharge home with hospice today Constipation No signs of obstruction on imaging Continue bowel regimen Type 2 diabetes Hold Januvia Sliding scale monitor blood glucose levels Lower extremity edema On Lasix venous Doppler - negative for DVT Echo from January 2024 shows EF of 50 to 55% Chronic pain Continue her home pain medications Hypothyroidism Continue levothyroxine TSH is 12 but free T4 is 0.7 Needs follow-up Macular degeneration Continue eyedrops Left Upper arm wound wound care DVT Px: Heparin SQ CODE STATUS DNI DNR Disposition Home with hospice Total Time Total Time Spent Total Time Spent (In Minutes): 49 minutes Discharge Plan Discharge Items Patient Disposition: Hospice - Home Reason For Visit: ALTERED MENTAL STATUS Discharge Diagnosis: Altered mental status Constipation Condition on Discharge: Fair Activity: Per Instructions section Exercise/Sports: Gradually increase as tolerated Non-emergency contact: Primary Care Provider Call non-emergency contact if: you have any medication questions, your symptoms worsen, your pain is concerning for you and you have a fever Follow-up/Referrals: Edmar Crowder [Primary Care Provider] - Diet: Carb Consistent or DM2 and Heart Healthy Diet Texture: Easy to Chew Addtl Attending Provider Instructions: -- Follow-up with your primary care physician in 1 week Seek immediate medical attention if your symptoms reoccur or worsen Please review medication list provided on discharge for any medication changes as instructed. Please call if you have any questions or problems. You can reach a [facility] hospitalist on duty at [facility] 24 hours a day by calling [phone] Pending Studies at Discharge: No Stand-Alone Forms: [facility] Medications and DC Order Prescriptions: Continued furosemide 20 mg tablet 20 mg PO QDAY potassium chloride 20 mEq tablet extended release 20 meq PO BID buprenorphine [Butrans] 5 mcg/hour patch weekly 1 patch transdermal Q7D Qty: 4 0RF Rx Instructions: APPLY 1 PATCH TOPICALLY ONCE WEEKLY ON WEDNESDAY multivitamin Tablet 1 tab PO DAILY solifenacin [Vesicare] 10 mg tablet 10 mg PO DAILY brimonidine 0.2 % drops 1 drp OPL BID ibuprofen 200 mg tablet 200 mg PO Q4H PRN (Reason: Pain) Januvia 100 mg tablet 100 mg PO DAILY latanoprost 0.005 % drops 1 drp OPB HS omeprazole 20 mg capsule,delayed release(DR/EC) 20 mg PO DAILY trazodone 50 mg tablet 50 mg PO HS polyethylene glycol 3350 [Miralax] 17 gram Powder In Packet 17 g PO DAILY PRN (Reason: constipation) Qty: 30 0RF sennosides [senna] 8.6 mg Tablet 8.6 mg PO BID loperamide 2 mg capsule 2 mg PO QID PRN (Reason: Diarrhea) ondansetron HCl 4 mg tablet 4 mg PO Q4H PRN (Reason: Nausea And Vomiting) levothyroxine 88 mcg tablet 88 mcg PO DAILY nystatin 100,000 unit/gram cream 0 unit TOPICAL BID PRN (Reason: RASH OR IRRITATION) Rx Instructions: APPLY TOPICALLY TO AFFECTED AREA(S) TWICE DAILY PRN RASH/IRRITATION nystatin 100,000 unit/gram powder 0 unit TOPICAL BID PRN (Reason: Rash) Rx Instructions: APPLY TOPICALLY TO AFFECTED AREA(S) TWICE DAILY NEEDED FOR RASH *USE WITH CREAM* colestipol 1 gram tablet 1 g PO BID oxycodone 5 mg tablet 5 mg PO Q4H PRN (Reason: pain) Held lorazepam 0.5 mg Tablet 0.5 mg PO DAILY Hold Instructions: Hold until further recommendations from your primary care physician gabapentin 100 mg Capsule 200 mg PO TID Hold Instructions: Hold until further recommendations from your primary care physician Discharge Orders: Discharge Order (Routine); Ordered 01/31/25 Ordered By: Jm Paiz Admission Data Admit Date/Time: 01/27/25 23:16 Attending Provider: Jm Paiz Admit Provider: Negro Figueroa Primary Care Provider: Edmar Crowder Other Providers: Negro Figueroa
[2025-01-31 16:00] VITALS: BP 123/74; PULSE 77; TEMP 97.7; O2SAT 92
== END 2025-01-31 16:05 | disposition hospice, inpatient (51) | DRG 948 ==
LOC: ED 19:24 → EDINP 23:16 → SUATTDRO 23:16 → 2E 01-28 02:25 → 3N 01-30 19:40